=== PATIENT | female | born 1960 | race Caucasian/White ===

== ENCOUNTER 2020-03-06 12:59 | Inpatient (IN) ==
--- NOTE | 2020-03-06 13:27 | Emergency Department Note ---
Lower Extremity Injury HPI General Chief Complaint: Extremity Injury, Lower Stated Complaint: fell out of chair Time Seen by Provider: 03/06/20 13:18 Source: patient and RN notes reviewed Mode of arrival: wheelchair Limitations: no limitations History of Present Illness HPI Narrative: Narrative: This patient slipped and fell out of her wheelchair the day after [place] and injured her right hip. She had x-ray today that shows a subcapital right hip fracture. She normally uses a wheelchair quite a bit because she is a double BKA amputee. 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 That is why she had to have the amputations. She does have diabetes. She says she normally does try to walk some and stand some but has not since the accident. No injury to any other body parts. complaint: hip injury Onset (ago): day(s) Type of Injury: blunt Place: home Severity: moderate Improves with: immobilization Worsens with: weight bearing Context: fall Related Data Home Medications Medication Instructions Recorded Confirmed dulaglutide 3 mg/0.5 mL 3 mg SUB-Q QWEEK 03/06/20 03/06/20 subcutaneous pen injector glipizide See Rx Instructions .ROUTE .COMPLEX 03/06/20 03/06/20 metformin 500 mg tablet 500 mg PO QDAY 03/06/20 03/06/20 Allergies Allergy/AdvReac Type Severity Reaction Status Date / Time codeine [CODEINE] Allergy Severe SHORTNESS Verified 03/06/20 11:46 OF BREATH Review of Systems ROS ROS Narrative: Narrative: All systems ED: reviewed and negative except as stated. [facility] Narrative Patient History Narrative: Narrative: Medical/Surgical/Family History All Active Problems (Updated 03/06/20 @ 16:06 by Eladio Deleon MD) Hip fracture, right (Acute) Contusion (Acute) Hip pain (Acute) Fall (Acute) Medical History (Updated 03/06/20 @ 16:06 by Eladio Deleon MD) Contusion (Acute) Fall (Acute) Hip fracture, right (Acute) Hip pain (Acute) Social History Smoking Status: Former smoker Alcohol Intake Frequency: does not drink Substance Use: does not use Exam Narrative Narrative: Narrative: General Limitations: no limitations Head Head: Present atraumatic, normocephalic and normal inspection Eye Eye: Present normal appearance and EOMI; Absent scleral icterus and conjunctival injection ENT ENT: Present normal exam, normal oropharynx and mucous membranes moist Neck Neck: Present normal inspection and full ROM Chest Chest: Present normal inspection Respiratory Respiratory: Present normal lung sounds bilaterally Cardiovascular Cardiovascular: Present regular rate, normal rhythm and normal heart sounds Adbominal Abdominal: Present soft; Absent distention and tenderness Extremities Extremities: Present normal inspection and other (Tenderness to the right hip region) Neurological Neurological: Present alert Psychiatric Psychiatric: Present normal affect Skin Skin: Present warm (WNL) and dry; Absent diaphoresis Course Vital Signs Vital signs: Vital Signs Temperature 97.5 F 03/06/20 13:02 Pulse Rate 87 03/06/20 13:02 Respiratory Rate 16 03/06/20 13:02 Blood Pressure 109/71 03/06/20 13:02 Pulse Oximetry (%) 99 03/06/20 13:02 Temperature 97.5 F 03/06/20 13:02 Pulse Rate 87 03/06/20 13:02 Respiratory Rate 16 03/06/20 13:02 Blood Pressure 109/71 03/06/20 13:02 Pulse Oximetry (%) 99 03/06/20 13:02 [facility] MDM Narrative Medical decision making narrative: Narrative: I discussed the case with the orthopedist Dr. Sena and the hospitalist Dr. Bass who will admit the patient to the hospital. Lab Data Lab results reviewed: Yes I reviewed the patient's lab results. Lab results narrative: Lab work was unremarkable. Result diagrams: 03/06/20 13:37 03/06/20 13:37 Labs: Lab Results 03/06/20 03/06/20 03/06/20 Range/Units 13:13 13:37 13:37 WBC 7.6 (4.5-11.0) K/mcL RBC 4.33 (4.00-5.20) M/mcL Hgb 13.6 (12.0-15.0) g/dL Hct 41.2 (36.0-48.0) % MCV 95.2 (80.0-100.0) fL MCH 31.4 (26.0-34.0) pg MCHC 33.0 (31.0-36.0) g/dL RDW 12.1 (11.5-14.5) % Plt Count 398 (140-440) K/mcL MPV 9.8 (7.4-10.4) fL Neut % (Auto) 58.2 (38.0-78.0) % Lymph % (Auto) 35.2 (15.0-49.0) % [place] % (Auto) 5.3 (1.0-12.0) % Eos % (Auto) 0.9 (0.0-7.0) % Baso % (Auto) 0.4 (0.0-2.0) % Lymph # (Auto) 2.68 (1.50-4.80) K/mcL [place] # (Auto) 0.40 (0.10-0.90) K/mcL Eos # (Auto) 0.07 (0.00-0.70) K/mcL Baso # (Auto) 0.03 (0.00-0.20) K/mcL Absolute Neutrophils 4.43 (1.80-8.00) K/mcL PT 12.2 (11.9-14.5) sec INR 0.9 (0.9-1.1) Sodium (133-145) mmol/L Potassium (3.3-5.1) mmol/L Chloride (96-108) mmol/L Carbon Dioxide (22-30) mmol/L Anion Gap (8.0-16.0) BUN (6-20) mg/dL Creatinine (0.6-1.1) mg/dL GFR Calculation Glucose (70-105) mg/dL Calcium (8.6-10.4) mg/dL Total Bilirubin (0.1-1.0) mg/dL AST (<32) U/L ALT (<40) U/L Alkaline Phosphatase (39-117) U/L Total Protein (5.9-8.4) gm/dL Albumin (3.2-5.2) gm/dL Globulin (2.2-3.7) gm/dL Albumin/Globulin Ratio (1.0-2.3) Urine Color Yellow Urine Appearance Hazy A (Clear) Urine pH 5.0 (5.0-9.0) Ur Specific [place] 1.032 (1.000-1.035) Urine Protein Negative (Negative) mg/dL Urine Glucose (UA) >=500 A (Negative) mg/dL Urine Ketones Negative (Negative) mg/dL Urine Occult Blood Negative (Negative) mg/dL Urine Nitrate Negative (Negative) Urine Bilirubin Negative (Negative) mg/dL Urine Urobilinogen Negative mg/dL Ur Leukocyte Esterase 500 A (Negative) /ug Urine RBC 0 (0-3) /hpf Urine WBC 5 H (0-4) /hpf Ur Squamous Epith Cells < 1 (0-4) /hpf Ur Transition Epith Cell < 1 (0-2) /hpf Urine Bacteria Few A (0) /hpf Urine Mucus Mod A (None) /hpf Urine Yeast (Budding) Many A (None) /hpf Ur Culture Indicated? Yes 03/06/20 Range/Units 13:37 WBC (4.5-11.0) K/mcL RBC (4.00-5.20) M/mcL Hgb (12.0-15.0) g/dL Hct (36.0-48.0) % MCV (80.0-100.0) fL MCH (26.0-34.0) pg MCHC (31.0-36.0) g/dL RDW (11.5-14.5) % Plt Count (140-440) K/mcL MPV (7.4-10.4) fL Neut % (Auto) (38.0-78.0) % Lymph % (Auto) (15.0-49.0) % [place] % (Auto) (1.0-12.0) % Eos % (Auto) (0.0-7.0) % Baso % (Auto) (0.0-2.0) % Lymph # (Auto) (1.50-4.80) K/mcL [place] # (Auto) (0.10-0.90) K/mcL Eos # (Auto) (0.00-0.70) K/mcL Baso # (Auto) (0.00-0.20) K/mcL Absolute Neutrophils (1.80-8.00) K/mcL PT (11.9-14.5) sec INR (0.9-1.1) Sodium 137 (133-145) mmol/L Potassium 3.8 (3.3-5.1) mmol/L Chloride 96 (96-108) mmol/L Carbon Dioxide 24 (22-30) mmol/L Anion Gap 17.0 H (8.0-16.0) BUN 11 (6-20) mg/dL Creatinine 0.8 (0.6-1.1) mg/dL GFR Calculation 80 Glucose 128 H (70-105) mg/dL Calcium 9.8 (8.6-10.4) mg/dL Total Bilirubin 0.3 (0.1-1.0) mg/dL AST 21 (<32) U/L ALT 16 (<40) U/L Alkaline Phosphatase 49 (39-117) U/L Total Protein 7.7 (5.9-8.4) gm/dL Albumin 4.7 (3.2-5.2) gm/dL Globulin 3.0 (2.2-3.7) gm/dL Albumin/Globulin Ratio 1.6 (1.0-2.3) Urine Color Urine Appearance (Clear) Urine pH (5.0-9.0) Ur Specific [place] (1.000-1.035) Urine Protein (Negative) mg/dL Urine Glucose (UA) (Negative) mg/dL Urine Ketones (Negative) mg/dL Urine Occult Blood (Negative) mg/dL Urine Nitrate (Negative) Urine Bilirubin (Negative) mg/dL Urine Urobilinogen mg/dL Ur Leukocyte Esterase (Negative) /ug Urine RBC (0-3) /hpf Urine WBC (0-4) /hpf Ur Squamous Epith Cells (0-4) /hpf Ur Transition Epith Cell (0-2) /hpf Urine Bacteria (0) /hpf Urine Mucus (None) /hpf Urine Yeast (Budding) (None) /hpf Ur Culture Indicated? Radiology Data Radiology results reviewed: Yes I reviewed the patient's radiology results. Radiology results narrative: This patient does have a subcapital fracture of the right hip. Discharge Plan Patient/Caregiver Discharge Instructions Pt seen by FARM FACILITY MANAGER/PA only: No Clinical Impression: Hip fracture, right Patient Disposition: Xfer As Inpt ([facility]) Follow up with: Chago Sandoval [Primary Care Provider] - Prescriptions: No Action metformin 500 mg tablet 500 mg PO QDAY RF: 0 Trulicity 3 mg/0.5 mL pen injector 3 mg SUB-Q QWEEK RF: 0 glipizide 5 mg Tablet See Rx Instructions .ROUTE .COMPLEX RF: 0
--- NOTE | 2020-03-06 14:09 | XRay Report ---
HISTORY: Preop, fell out of a chair with hip fracture FINDINGS: The lungs are clear and normally expanded. The heart size and pulmonary vasculature are normal. The mediastinum and hilar normal. Mild arthritis is present in the right shoulder. IMPRESSION: Normal chest. Interpreted and Authenticated by: Lamin Frye 03/06/20
[2020-03-06 14:25] LABS: Basophils # (Auto) 0.03 K/mcL (0.00-0.20); Basophils % (Auto) 0.4 % (0.0-2.0); Eosinophils # (Auto) 0.07 K/mcL (0.00-0.70); Eosinophils % (Auto) 0.9 % (0.0-7.0); Hematocrit 41.2 % (36.0-48.0); Hemoglobin 13.6 g/dL (12.0-15.0); Lymphocytes # (Auto) 2.68 K/mcL (1.50-4.80); Lymphocytes % (Auto) 35.2 % (15.0-49.0); Mean Cell Volume 95.2 fL (80.0-100.0); Mean Platelet Volume 9.8 fL (7.4-10.4); Monocytes % (Auto) 5.3 % (1.0-12.0); Neutrophils % (Auto) 58.2 % (38.0-78.0); Platelet Count 398 K/mcL (140-440); RBC 4.33 M/mcL (4.00-5.20); Red Cell Distribution Width 12.1 % (11.5-14.5); WBC 7.6 K/mcL (4.5-11.0)
[2020-03-06 14:38] LABS: Appearance,Urine HAZY (Clear); Bacteria,Urine FEW /hpf (0); Bilirubin,Urine Negative (Negative); Color,Urine YELLOW; Culture Indicated,Urine Yes; Glucose,Urine (UA) >=500 mg/dL (Negative); Ketones,Urine Negative (Negative); Leukocyte Esterase,Urine 500 /ug (Negative); Mucus,Urine MOD /hpf; Nitrate,Urine Negative (Negative); Protein,Urine Negative (Negative); Specific Gravity,Urine 1.032 (1.000-1.035); Urine Blood Negative (Negative); Urine Budding Yeast MANY /hpf; Urine RBC 0 /hpf (0-3); Urine Squamous Epithelial Cell < 1 /hpf (0-4); Urine Transitional Epi Cells < 1 /hpf (0-2); Urine WBC 5 /hpf (0-4); Urobilinogen,Urine Negative
[2020-03-06 14:49] LABS: ALT/SGPT 16 U/L (<40); AST/SGOT 21 U/L (<32); Albumin 4.7 gm/dL (3.2-5.2); Albumin/Globulin Ratio 1.6 (1.0-2.3); Alkaline Phosphatase 49 U/L (39-117); Bilirubin,Total 0.3 mg/dL (0.1-1.0); Blood Urea Nitrogen 11 mg/dL (6-20); Calcium 9.8 mg/dL (8.6-10.4); Carbon Dioxide 24 mmol/L (22-30); Chloride 96 mmol/L (96-108); Glomerular Filtration Rate 80; Glucose 128 mg/dL (70-105)
[2020-03-06 15:05] LABS: INR 0.9 (0.9-1.1); Prothrombin Time 12.2 sec (11.9-14.5)
[2020-03-06] MEDS ORDERED: DEXTROSE 50% 50 ML VIAL IV ONE (16:37)
--- NOTE | 2020-03-06 16:41 | Internal Med History&Physical ---
HPI History of Present Illness Patient information: Note initiated : 03/06/20 at 4:32 pm Service Date, if different from initiated Date: [] Patient: Lupe Sanchez a 59 y/o F admitted on for fell out of chair. Chief Complaint: History of present illness: Ms. Sanchez is a 59 year old F to bilateral BKA/diabetes who is otherwise fairly independent and lives alone. Patient was in her baseline state of health until on the while she was trying to bend to lift her box fell on the floor landing on her right side. She was able to get up and settle herself from the chair. She experienced minimal discomfort and continued to work with the symptoms for the next few days until she presents to the ER for evaluation. Initial work-up was consistent with right hip fracture. Dr. Sena orthopedic was consulted and advised hospitalization for operative intervention. Subsequently hospitalist service was consulted At the time of my evaluation patient is alert and oriented. She denies active distress. She denies loss of consciousness during the episode or lightheadedness dizziness chest pain. She attributes to fall purely mechanical in nature getting off balance. She uses prosthetic limbs and has been very independent. Denies history of stroke except age 25 due to pheochromocytoma when she had ischemic limbs requiring bilateral amputation and a CVA. Ever since she has not had any hospitalizations or cardiac stents. She does not smoke or drink and does not carry significant risk factors She denies diarrhea, dysuria, fever, joint pain, rash, headache, photophobia Review of systems A 10 point review system was performed and is negative except for ones discussed above PFSH PFSH All Active Problems (Updated 03/06/20 @ 16:06 by Eladio Deleon MD) Hip fracture, right (Acute) Contusion (Acute) Hip pain (Acute) Fall (Acute) Medical History (Updated 03/06/20 @ 16:06 by Eladio Deleon MD) Contusion (Acute) Fall (Acute) Hip fracture, right (Acute) Hip pain (Acute) Social History smoking status: Former smoker alcohol intake frequency: does not drink substance use type: does not use MEDS/ALLERGIES Home Medications and Allergies Home Medications Medication Instructions Recorded Confirmed Type dulaglutide 3 mg/0.5 mL 3 mg SUB-Q QWEEK 03/06/20 03/06/20 History subcutaneous pen injector glipizide See Rx Instructions .ROUTE .COMPLEX 03/06/20 03/06/20 History metformin 500 mg tablet 500 mg PO QDAY 03/06/20 03/06/20 History Allergies Allergy/AdvReac Type Severity Reaction Status Date / Time codeine [CODEINE] Allergy Severe SHORTNESS Verified 03/06/20 11:46 OF BREATH EXAM Constitutional Vitals: Temp Pulse Resp BP Pulse Ox 97.5 F 87 16 109/71 99 03/06/20 13:02 03/06/20 13:02 03/06/20 13:02 03/06/20 13:02 03/06/20 13:02 Alert oriented Head normocephalic Oral cavity moist No ear nose discharge Eye movement symmetrical Neck supple no lymphadenopathy S1-S2 occasionally irregular Nonlabored breathing Nondistended nontender abdomen Bilateral BKA. Right lower extremity externally rotated. Skin no suspicious lesion Psych anxious but alert cooperative Neuro normal higher function GCS 15 DATA Data Completed and Pending Labs: Labs from last 24 hours 03/06/20 03/06/20 03/06/20 13:37 13:37 13:37 WBC 7.6 RBC 4.33 Hgb 13.6 Hct 41.2 MCV 95.2 MCH 31.4 MCHC 33.0 RDW 12.1 Plt Count 398 MPV 9.8 Neut % (Auto) 58.2 Lymph % (Auto) 35.2 [place] % (Auto) 5.3 Eos % (Auto) 0.9 Baso % (Auto) 0.4 Lymph # (Auto) 2.68 [place] # (Auto) 0.40 Eos # (Auto) 0.07 Baso # (Auto) 0.03 Absolute Neutrophils 4.43 PT 12.2 INR 0.9 Sodium 137 Potassium 3.8 Chloride 96 Carbon Dioxide 24 Anion Gap 17.0 H BUN 11 Creatinine 0.8 GFR Calculation 80 Glucose 128 H Calcium 9.8 Total Bilirubin 0.3 AST 21 ALT 16 Alkaline Phosphatase 49 Total Protein 7.7 Albumin 4.7 Globulin 3.0 Albumin/Globulin Ratio 1.6 Urine Color Urine Appearance Urine pH Ur Specific [place] Urine Protein Urine Glucose (UA) Urine Ketones Urine Occult Blood Urine Nitrate Urine Bilirubin Urine Urobilinogen Ur Leukocyte Esterase Urine RBC Urine WBC Ur Squamous Epith Cells Ur Transition Epith Cell Urine Bacteria Urine Mucus Urine Yeast (Budding) Ur Culture Indicated? 03/06/20 13:13 WBC RBC Hgb Hct MCV MCH MCHC RDW Plt Count MPV Neut % (Auto) Lymph % (Auto) [place] % (Auto) Eos % (Auto) Baso % (Auto) Lymph # (Auto) [place] # (Auto) Eos # (Auto) Baso # (Auto) Absolute Neutrophils PT INR Sodium Potassium Chloride Carbon Dioxide Anion Gap BUN Creatinine GFR Calculation Glucose Calcium Total Bilirubin AST ALT Alkaline Phosphatase Total Protein Albumin Globulin Albumin/Globulin Ratio Urine Color Yellow Urine Appearance Hazy A Urine pH 5.0 Ur Specific [place] 1.032 Urine Protein Negative Urine Glucose (UA) >=500 A Urine Ketones Negative Urine Occult Blood Negative Urine Nitrate Negative Urine Bilirubin Negative Urine Urobilinogen Negative Ur Leukocyte Esterase 500 A Urine RBC 0 Urine WBC 5 H Ur Squamous Epith Cells < 1 Ur Transition Epith Cell < 1 Urine Bacteria Few A Urine Mucus Mod A Urine Yeast (Budding) Many A Ur Culture Indicated? Yes A/P Narrative A/P Narrative: * Right hip fracture-orthopedic consulted. Keep n.p.o. Will undergo surgery tonight. Pain management * Preop risk evaluation-based on RCRI [place] [employer] risk verification patient would fall under moderate to high risk given history of diabetes and prior CVA however patient does not have a history of decompensated heart failure/CAD/renal failure. Patient has good functional baseline, she would be a great rehab candidate. No modifiable risk factors at this time however surgery and anesthesia specific risk will be discussed by individual care providers * History of DM type II continue Metformin/CCD. An updated medication list is being obtained from PCP office * Hyperlipidemia continue statin * Hypothyroidism continue thyroxine * History of hypertension on lisinopril * Full code * Prophylaxis heparin post surgery Plan * Inpatient admission * Keep n.p.o./pain management/crystalloids * Postop care per surgery * Pre-existing medical condition management as above * Directed therapies * Discharge plan Time Spent With Patient Time: Total time spent is greater than 50% in coordination of care (as documented) at patient's floor/unit and/or counseling patient:
[2020-03-06] MEDS ORDERED: POTASSIUM CHLORIDE 40 MEQ in DEXTROSE 5% IN WATER 500 ML IV PRN (17:39)
[2020-03-06] MEDS ORDERED: ACETAMINOPHEN 650 MG/65 ML BAG IV PRN (17:39)
[2020-03-06] MEDS ORDERED: ONDANSETRON 4 MG/2 ML VIAL IV PRN (17:39)
[2020-03-06] MEDS ORDERED: POTASSIUM CHLORIDE 20 MEQ PACKET PO PRN (17:39)
[2020-03-06] MEDS ORDERED: MELATONIN 3 MG TABLET PO PRN (17:39)
[2020-03-06] MEDS ORDERED: ACETAMINOPHEN 325 MG TABLET PO PRN (17:39)
[2020-03-06] MEDS ORDERED: ONDANSETRON 4 MG ODT TABLET SL PRN (17:39)
[2020-03-06] MEDS ORDERED: MAGNESIUM SULFATE 2 GM/50 ML BAG IV PRN (17:39)
[2020-03-06] MEDS ORDERED: POLYETHYLENE GLYCOL 3350 17 GM PACKET PO PRN (17:39)
[2020-03-06] MEDS ORDERED: DEXTROSE 31 GM ORAL.SUSP PO PRN (17:39)
[2020-03-06] MEDS ORDERED: DEXTROSE 50% 50 ML VIAL IV PRN (17:39)
[2020-03-06] MEDS ORDERED: BISACODYL 10 MG SUPP.RECT PR PRN (17:39)
[2020-03-06] MEDS: 0.9 % SODIUM CHLORIDE 1,000 ML IV SCH (19:00)
[2020-03-06] MEDS: INSULIN LISPRO 1 UNIT/0.01 ML UNIT SQ SCH ×2 (19:04→21:50)
[2020-03-06] MEDS: DEXTROSE 5%-1/2NS 1,000 ML IV SCH (20:00)
[2020-03-06] MEDS ORDERED: ORTHO PREOP PAIN ORDER PER RX PO SCH (21:00)
[2020-03-06] MEDS ORDERED: ceFAZolin 2 GM in DEXTROSE 5% IN WATER 50 ML IV SCH (21:00)
[2020-03-06] MEDS ORDERED: SENNOSIDES/DOCUSATE SODIUM 1 TAB TABLET PO SCH (21:00)
[2020-03-06] MEDS: 0.9 % SODIUM CHLORIDE 10 ML SYRINGE IV SCH (21:50)
[2020-03-06] MEDS: DOCUSATE SODIUM 100 MG CAPSULE PO SCH (22:17)
[2020-03-07] MEDS: HYDROmorphone 0.5 MG/0.5 ML SYRINGE IV PRN ×2 (00:15→04:37)
[2020-03-07] MEDS ORDERED: SCOPOLAMINE 1 PATCH PATCH TOPICAL PRN (03:56)
[2020-03-07] MEDS ORDERED: IPRATROPIUM/ALBUTEROL 3 ML AMPUL.NEB NEB PRN ×2 (03:56→13:19)
[2020-03-07] MEDS: 0.9 % SODIUM CHLORIDE 10 ML SYRINGE IV SCH ×3 (04:45→20:45)
[2020-03-07] MEDS ORDERED: CELECOXIB 200 MG CAPSULE PO SCH (06:00)
[2020-03-07] MEDS ORDERED: ceFAZolin 2 GM in DEXTROSE 5% IN WATER 50 ML IV SCH (06:00)
[2020-03-07] MEDS ORDERED: PREGABALIN 75 MG CAPSULE PO SCH (06:00)
[2020-03-07] MEDS ORDERED: ACETAMINOPHEN 500 MG TABLET PO SCH (06:00)
[2020-03-07] MEDS ORDERED: oxyCODONE 10 MG TAB.ER.12H PO SCH (06:00)
[2020-03-07 06:56] LABS: Basophils # (Auto) 0.03 K/mcL (0.00-0.20); Basophils % (Auto) 0.4 % (0.0-2.0); Eosinophils # (Auto) 0.14 K/mcL (0.00-0.70); Eosinophils % (Auto) 1.7 % (0.0-7.0); Hematocrit 37.7 % (36.0-48.0); Hemoglobin 12.3 g/dL (12.0-15.0); Lymphocytes # (Auto) 3.13 K/mcL (1.50-4.80); Lymphocytes % (Auto) 38.1 % (15.0-49.0); Mean Corpuscular HGB Conc 32.6 g/dL (31.0-36.0); Mean Platelet Volume 9.9 fL (7.4-10.4); Monocytes # (Auto) 0.54 K/mcL (0.10-0.90); Monocytes % (Auto) 6.6 % (1.0-12.0); Neutrophils % (Auto) 53.2 % (38.0-78.0); Platelet Count 366 K/mcL (140-440); RBC 3.97 M/mcL (4.00-5.20); Red Cell Distribution Width 12.1 % (11.5-14.5); WBC 8.2 K/mcL (4.5-11.0)
[2020-03-07 07:41] LABS: ALT/SGPT 11 U/L (<40); AST/SGOT 16 U/L (<32); Albumin 3.7 gm/dL (3.2-5.2); Albumin/Globulin Ratio 1.3 (1.0-2.3); Alkaline Phosphatase 42 U/L (39-117); Bilirubin,Direct < 0.2 mg/dL (<0.3); Bilirubin,Total 0.2 mg/dL (0.1-1.0); Blood Urea Nitrogen 10 mg/dL (6-20); Carbon Dioxide 21 mmol/L (22-30); Chloride 102 mmol/L (96-108); Globulin 2.8 gm/dL (2.2-3.7); Glomerular Filtration Rate 80; Glucose 161 mg/dL (70-105); Lactate Dehydrogenase 211 U/L (135-225); Phosphorous 4.7 mg/dL (2.5-4.5); Triglycerides 215 mg/dL (<150); Uric Acid 5.4 mg/dL (2.5-8.0)
[2020-03-07] MEDS: INSULIN LISPRO 1 UNIT/0.01 ML UNIT SQ SCH ×4 (07:45→20:45)
[2020-03-07] MEDS ORDERED: diphenhydrAMINE 50 MG/ML VIAL IV PRN ×2 (07:54→13:19)
[2020-03-07 08:05] LABS: Hemoglobin A1C 8.3 % Hgb (4.0-6.0)
--- NOTE | 2020-03-07 10:09 | Internal Med Progress Note ---
SUBJECTIVE Subjective Patient information: Note initiated : 03/07/20 at 10:05 am Service Date, if different from initiated Date: [] Patient: Lupe Sanchez a 59 y/o F admitted on 03/06/20 for fell out of chair. Chief Complaint: [] Interval history: Ms. Sanchez is a 59 year old F to bilateral BKA/diabetes who is otherwise fairly independent and lives alone. Patient was in her baseline state of health until on the while she was trying to bend to lift her box fell on the floor landing on her right side. She was able to get up and settle herself from the chair. She experienced minimal discomfort and continued to work with the symptoms for the next few days until she presents to the ER for evaluation. Initial work-up was consistent with right hip fracture. Dr. Sena orthopedic was consulted and advised hospitalization for operative intervention. Subsequently hospitalist service was consulted At the time of my evaluation patient is alert and oriented. She denies active distress. She denies loss of consciousness during the episode or lightheadedness dizziness chest pain. She attributes to fall purely mechanical in nature getting off balance. She uses prosthetic limbs and has been very independent. Denies history of stroke except age 25 due to pheochromocytoma when she had ischemic limbs requiring bilateral amputation and a CVA. Ever since she has not had any hospitalizations or cardiac stents. She does not smoke or drink and does not carry significant risk factors /-patient doing well overnight on pain control. Surgery this morning. Currently n.p.o. Stable hemodynamics. Will review postop. No concerns expressed by nursing staff Constitutional Vitals: Vital Signs Temp Pulse Resp BP Pulse Ox 97.9 F 78 16 106/70 96 03/07/20 07:40 03/07/20 07:40 03/07/20 07:40 03/07/20 07:40 03/07/20 07:40 Period Temp Pulse Resp BP Sys/Huertas Pulse Ox Last 24 Hr 97.5 F-98.7 F 78-101 14-20 86-112/50-71 95-100 Intake and Output 03/06/20 03/07/20 03/07/20 21:59 05:59 13:59 Output Total 100 600 Balance -100 -600 Weight 58.559 kg Alert oriented Bilateral BKA Right limb exsanguinated Minimal anxiety Nonlabored breathing Intake & Output: Intake & Output 03/06/20 03/07/20 03/07/20 21:59 05:59 13:59 Output Total 100 600 Balance -100 -600 Weight 58.559 kg Output: Void Amount 100 600 Other: Urine Appearance Cloudy Clear Urine Color Bright Yellow Bright Yellow Urine Odor Strong Normal # Voids 1 OBJ DATA Labs CBC & Chem 7: 03/07/20 04:53 03/07/20 04:53 Labs: Abnormal Lab Results 03/07/20 03/07/20 03/07/20 04:53 04:53 04:53 RBC 3.97 L Carbon Dioxide 21 L Anion Gap Glucose 161 H Hemoglobin A1c 8.3 H Phosphorus 4.7 H Triglycerides 215 H Urine Appearance Urine Glucose (UA) Ur Leukocyte Esterase Urine WBC Urine Bacteria Urine Mucus Urine Yeast (Budding) 03/06/20 03/06/20 13:37 13:13 RBC Carbon Dioxide Anion Gap 17.0 H Glucose 128 H Hemoglobin A1c Phosphorus Triglycerides Urine Appearance Hazy A Urine Glucose (UA) >=500 A Ur Leukocyte Esterase 500 A Urine WBC 5 H Urine Bacteria Few A Urine Mucus Mod A Urine Yeast (Budding) Many A Meds: Medications Acetaminophen (Tylenol) 650 mg PO Q4-6HP PRN; Protocol PRN Reason: Per Pain Protocol/Fever > 101 Acetaminophen (Tylenol) 1,000 mg PO PREOP [facility] Stop: 03/07/20 15:00 Last Admin: 03/07/20 06:45 Dose: 1,000 mg Documented by: Bisacodyl (Dulcolax) 10 mg [place] Q2-3DAYS PRN PRN Reason: Constipation Celecoxib (Celebrex) 200 mg PO PREOP [facility] Stop: 03/07/20 15:00 Last Admin: 03/07/20 06:47 Dose: 200 mg Documented by: Dextrose (Dextrose 50%) 0 ml IV UD PRN PRN Reason: Hypoglycemia Diagnostic Test (Pha) (Accu-Chek) 1 each FS ACHS [facility] Last Admin: 03/07/20 07:43 Dose: 1 each Documented by: Diagnostic Test (Pha) (Accu-Chek) 1 each FS UD PRN PRN Reason: Hypoglycemia Stop: 03/07/20 11:56 Diphenhydramine HCl (Benadryl) 25 mg IV Q6HP PRN PRN Reason: Allergic Symptoms Last Admin: 03/07/20 08:03 Dose: 25 mg Documented by: Docusate Sodium (Colace) 100 mg PO BID [facility] Last Admin: 03/06/20 22:17 Dose: 100 mg Documented by: Glucose (Insta-Glucose) 15 gm PO PRN PRN PRN Reason: Hypoglycemia Heparin Sodium (Porcine) (Heparin) 5,000 unit SQ Q12 [facility] Hydromorphone HCl (Dilaudid) 0.25 - 0.5 mg IV Q4HP PRN; Protocol PRN Reason: Per Pain Protocol Last Admin: 03/07/20 04:37 Dose: 0.25 mg Documented by: Potassium Chloride 40 meq/ (Dextrose) 520 mls @ 130 mls/hr IV UD PRN PRN Reason: K+ = or < 3.5 Acetaminophen (Ofirmev) 650 mg in 65 mls @ 130 mls/hr IV Q6HP PRN; Protocol PRN Reason: Per Pain Protocol/Fever > 101 Magnesium Sulfate (Magnesium Sulfate) 2 gm in 50 mls @ 50 mls/hr IV UD PRN PRN Reason: MG = or < 1.7 Sodium Chloride (Sodium Chloride 0.9%) 1,000 mls @ 50 mls/hr IV .Q20H [facility] Stop: 03/09/20 05:38 Last Admin: 03/06/20 19:00 Dose: 50 mls/hr Documented by: Dextrose/Sodium Chloride (Dextrose 5%-1/2ns Iv Solution) 1,000 mls @ 50 mls/hr IV .Q20H [facility] Last Admin: 03/06/20 20:00 Dose: 50 mls/hr Documented by: Cefazolin Sodium 2 gm/ (Dextrose) 50 mls @ 100 mls/hr IV PREOP [facility] Stop: 03/07/20 15:00 Insulin Human Lispro (Humalog) 0 unit SQ ACHS [facility]; Protocol Last Admin: 03/07/20 07:45 Dose: Not Given Documented by: Iron Carb/Multivit/Burt/Folic Acid (Multivitamin W/Minerals) 1 tab PO DAILY [facility] Melatonin (Melatonin 3mg Tablet) 3 mg PO HSP PRN PRN Reason: Insomnia Ondansetron HCl (Zofran Odt) 4 mg SL Q4-6HP PRN; Protocol PRN Reason: Nausea And Vomiting Ondansetron HCl (Zofran) 4 mg IV Q4-6HP PRN; Protocol PRN Reason: Nausea And Vomiting Oxycodone HCl (Oxycontin) 10 mg PO PREOP [facility] Stop: 03/07/20 15:00 Last Admin: 03/07/20 06:48 Dose: 10 mg Documented by: Polyethylene Glycol (Miralax) 17 gm PO DAILYP PRN PRN Reason: Constipation Potassium Chloride (Klor-Con) 40 meq PO DAILYP PRN PRN Reason: K+ < 3.5 Pregabalin (Lyrica) 75 mg PO PREOP [facility] Stop: 03/07/20 15:00 Last Admin: 03/07/20 06:48 Dose: 75 mg Documented by: Scopolamine (Transderm-Scop) 1 patch TOPICAL PREOP PRN PRN Reason: Nausea And Vomiting Senna/Docusate Sodium (Senna Plus Tablet) 1 tab PO HS [facility] Last Admin: 03/06/20 22:17 Dose: 1 tab Documented by: Sitagliptin Phosphate (Januvia) 100 mg PO DAILY [facility] Sodium Chloride (Saline Flush) 10 ml IV Q8 [facility] Last Admin: 03/07/20 04:45 Dose: Not Given Documented by: A/P Narrative A/P Narrative: * Right hip fracture-surgery today. Keep n.p.o. managed per orthopedics * Preop risk evaluation-based on RCRI [place] [employer] risk verification patient would fall under moderate to high risk intraoperative and immediate postoperative risk for ACS/CVA given history of diabetes and prior CVA however patient does not have a history of decompensated heart failure/CAD/renal failure. Patient has good functional baseline, she would be a great rehab candidate. No modifiable risk factors at this time however surgery and anesthesia specific risk will be discussed by individual care providers * History of DM type II continue Metformin/CCD once patient started on diet post surgery. * Hyperlipidemia continue statin * Hypothyroidism continue thyroxine * History of hypertension on lisinopril * Full code * Prophylaxis heparin post surgery Plan * Review postop * Continue postop care/pain management/DVT prophylaxis per orthopedics * Pre-existing medical condition management as above * Directed therapies including PT OT/nutrition support * Discharge plan per case management Time Spent With Patient Time: Total time spent is greater than 50% in coordination of care (as documented) at patient's floor/unit and/or counseling patient: QUALITY VTE Deep Vein Thrombosis/Pulmonary Embolism Present on Admission: No
[2020-03-07] MEDS ORDERED: LIDOCAINE HCL/PF 100 MG/5 ML SYRINGE IV ONE (12:42)
[2020-03-07] MEDS ORDERED: ePHEDrine 50 MG/ML AMPUL IV ONE (12:42)
[2020-03-07] MEDS ORDERED: DEXAMETHASONE 10 MG/ML VIAL ONE (12:42)
[2020-03-07] MEDS ORDERED: PROPOFOL 200 MG/20 ML VIAL IV ONE (12:42)
[2020-03-07] MEDS ORDERED: ONDANSETRON 4 MG/2 ML VIAL ONE (12:42)
[2020-03-07] MEDS ORDERED: fentaNYL 100 MCG/2 ML VIAL IV ONE (12:42)
[2020-03-07] MEDS ORDERED: KETAMINE 100 MG/ML ML ONE (12:42)
[2020-03-07] MEDS ORDERED: PHENYLEPHRINE 10 MG/ML VIAL ONE (12:42)
[2020-03-07] MEDS ORDERED: GENTAMICIN SULFATE 800 MG/20 ML VIAL IR ONE (13:07)
[2020-03-07] MEDS ORDERED: ONDANSETRON 4 MG/2 ML VIAL IV PRN ×4 (13:19→13:43)
[2020-03-07] MEDS ORDERED: MEPERIDINE 25 MG/ML SYRINGE IV PRN (13:19)
[2020-03-07] MEDS ORDERED: NALOXONE HCL 0.4 MG/ML VIAL IV PRN (13:19)
[2020-03-07] MEDS ORDERED: BENZOCAINE/MENTHOL 1 LOZENGE PO PRN ×2 (13:19→13:43)
[2020-03-07] MEDS ORDERED: PROMETHAZINE 25 MG/ML VIAL IV PRN (13:19)
[2020-03-07] MEDS ORDERED: ACETAMINOPHEN 900 MG/90 ML BAG IV ONE (13:19)
[2020-03-07] MEDS ORDERED: LACTATED RINGERS 250 ML IV PRN (13:19)
[2020-03-07] MEDS ORDERED: LACTATED RINGERS 1,000 ML IV SCH ×2 (13:30→13:45)
[2020-03-07] MEDS ORDERED: MAGNESIUM HYDROXIDE 30 ML ORAL.SUSP PO PRN (13:43)
[2020-03-07] MEDS ORDERED: BISACODYL 10 MG SUPP.RECT PR PRN (13:43)
[2020-03-07] MEDS ORDERED: ACETAMINOPHEN 325 MG TABLET PO PRN (13:43)
[2020-03-07] MEDS ORDERED: POLYETHYLENE GLYCOL 3350 17 GM PACKET PO PRN (13:43)
[2020-03-07] MEDS ORDERED: HYDROcodone/APAP 10/325MG TABLET PO PRN (13:43)
[2020-03-07] MEDS ORDERED: TRANEXAMIC ACID 1,000 MG/10 ML VIAL IV SCH (13:43)
[2020-03-07] MEDS ORDERED: FLEETS ADULT ENEMA PR PRN (13:43)
--- NOTE | 2020-03-07 13:43 | Brief Operative Note ---
Brief Operative Note Date of procedure: 03/07/20 Pre-op diagnosis: Right hip fracture femoral neck Post-op diagnosis: same Procedure: Right hip cemented hemiarthroplasty Grafts/Implants: Yes Anesthesia: GETA Findings: femoral neck fx Complications: none Surgeon: Elgin Carty Nuclear Engineering Technician: Gibran Molina Estimated blood loss (cc): 20 Tourniquet Time (Minutes): 0 Specimens Removed/Pathology: none sent Condition: stable Disposition: PACU
[2020-03-07] MEDS: sitaGLIPtin 100 MG TABLET PO SCH (13:52)
[2020-03-07] MEDS: DOCUSATE SODIUM 100 MG CAPSULE PO SCH ×2 (13:52→20:45)
[2020-03-07] MEDS: MULTIVIT,THER IRON,CA,FA & MIN 1 TABLET PO SCH (13:53)
[2020-03-07] MEDS: fentaNYL 100 MCG/2 ML VIAL IV PRN ×2 (14:20→14:25)
[2020-03-07] MEDS: KETOROLAC 15 MG/ML VIAL IV PRN ×2 (14:21→23:36)
--- NOTE | 2020-03-07 14:55 | XRay Report ---
HISTORY: Postop right hip arthroplasty FINDINGS: There is a well-positioned right total hip prosthesis. There is no fracture or abnormal soft tissue calcification. There are multiple small cystic erosions in the left femoral head. The left hip joint is normal in width. Multiple phleboliths are seen in the pelvis. IMPRESSION: Well-positioned right hip prosthesis Interpreted and Authenticated by: Lamin Frye 03/07/20
[2020-03-07] MEDS: 0.9 % SODIUM CHLORIDE 1,000 ML IV SCH (15:11)
[2020-03-07] MEDS: DEXTROSE 5%-1/2NS 1,000 ML IV SCH (15:21)
[2020-03-07] MEDS: HYDROmorphone 1 MG/ML SYRINGE IV PRN ×2 (15:37→19:23)
[2020-03-07] MEDS: ceFAZolin 1 GM VIAL IV SCH (18:40)
[2020-03-07] MEDS ORDERED: oxyCODONE HCL 5 MG TABLET PO PRN (19:15)
[2020-03-07] MEDS: SENNOSIDES 1 TABLET PO SCH (20:44)
[2020-03-07] MEDS: ASPIRIN 81 MG TAB.CHEW PO SCH (20:45)
[2020-03-07] MEDS ORDERED: HEPARIN 5,000 UNIT/ML VIAL SQ SCH (21:00)
[2020-03-07] MEDS ORDERED: TEMAZEPAM 15 MG CAPSULE PO PRN (21:00)
[2020-03-07] MEDS: oxyCODONE HCL 5 MG TABLET PO PRN (23:34)
[2020-03-07] MEDS ORDERED: oxyCODONE HCL 5 MG TABLET PO ONE (23:38)
[2020-03-08] MEDS: ceFAZolin 1 GM VIAL IV SCH (02:36)
[2020-03-08] MEDS: 0.9 % SODIUM CHLORIDE 10 ML SYRINGE IV SCH ×3 (05:28→20:50)
[2020-03-08] MEDS ORDERED: oxyCODONE HCL 5 MG TABLET PO ONE (05:33)
[2020-03-08] MEDS: HYDROmorphone 1 MG/ML SYRINGE IV PRN (06:20)
[2020-03-08 07:10] LABS: ALT/SGPT 13 U/L (<40); AST/SGOT 19 U/L (<32); Albumin 3.7 gm/dL (3.2-5.2); Albumin/Globulin Ratio 1.4 (1.0-2.3); Alkaline Phosphatase 45 U/L (39-117); Bilirubin,Direct < 0.2 mg/dL (<0.3); Bilirubin,Total < 0.2 mg/dL (0.1-1.0); Blood Urea Nitrogen 14 mg/dL (6-20); Carbon Dioxide 24 mmol/L (22-30); Chloride 98 mmol/L (96-108); Globulin 2.6 gm/dL (2.2-3.7); Glomerular Filtration Rate 70; Glucose 240 mg/dL (70-105); Lactate Dehydrogenase 165 U/L (135-225); Phosphorous 3.8 mg/dL (2.5-4.5); Triglycerides 165 mg/dL (<150); Uric Acid 5.1 mg/dL (2.5-8.0)
[2020-03-08 08:07] LABS: Basophils # (Auto) 0.01 K/mcL (0.00-0.20); Basophils % (Auto) 0.1 % (0.0-2.0); Eosinophils # (Auto) 0 K/mcL (0.00-0.70); Eosinophils % (Auto) 0 % (0.0-7.0); Hematocrit 33.9 % (36.0-48.0); Hemoglobin 11.1 g/dL (12.0-15.0); Lymphocytes # (Auto) 1.69 K/mcL (1.50-4.80); Lymphocytes % (Auto) 17.7 % (15.0-49.0); Mean Cell Volume 95.5 fL (80.0-100.0); Mean Corpuscular HGB Conc 32.7 g/dL (31.0-36.0); Mean Platelet Volume 9.8 fL (7.4-10.4); Monocytes # (Auto) 0.62 K/mcL (0.10-0.90); Monocytes % (Auto) 6.5 % (1.0-12.0); Neutrophils % (Auto) 75.7 % (38.0-78.0); Platelet Count 347 K/mcL (140-440); RBC 3.55 M/mcL (4.00-5.20); Red Cell Distribution Width 11.9 % (11.5-14.5); WBC 9.6 K/mcL (4.5-11.0)
--- NOTE | 2020-03-08 08:10 | Internal Med Progress Note ---
SUBJECTIVE Subjective Patient information: Note initiated : 03/08/20 at 8:07 am Service Date, if different from initiated Date: [] Patient: Lupe Sanchez a 59 y/o F admitted on 03/06/20 for fell out of chair. Chief Complaint: [] Interval history: Ms. Sanchez is a 59 year old F to bilateral BKA/diabetes who is otherwise fairly independent and lives alone. Patient was in her baseline state of health until on the while she was trying to bend to lift her box fell on the floor landing on her right side. She was able to get up and settle herself from the chair. She experienced minimal discomfort and continued to work with the symptoms for the next few days until she presents to the ER for evaluation. Initial work-up was consistent with right hip fracture. Dr. Sena orthopedic was consulted and advised hospitalization for operative intervention. Subsequently hospitalist service was consulted At the time of my evaluation patient is alert and oriented. She denies active distress. She denies loss of consciousness during the episode or lightheadedness dizziness chest pain. She attributes to fall purely mechanical in nature getting off balance. She uses prosthetic limbs and has been very independent. Denies history of stroke except age 25 due to pheochromocytoma when she had ischemic limbs requiring bilateral amputation and a CVA. Ever since she has not had any hospitalizations or cardiac stents. She does not smoke or drink and does not carry significant risk factors 1/1-patient doing well overnight on pain control. Surgery this morning. Currently n.p.o. Stable hemodynamics. Will review postop. No concerns e xpressed by nursing staff 1/2-patient seen in room. No overnight events. D5 half NS discontinued. Tolerating diet. Patient expressed concerns about discharging home due to deconditioning/instability and that she lives alone. She questioned about possibility of short-term rehab. Case management to coordinate. Continue therapies. Anticipate discharge in 48 hours Constitutional Vitals: Vital Signs Temp Pulse Resp BP Pulse Ox 96.7 F L 86 16 98/60 97 03/08/20 04:00 03/08/20 04:00 03/08/20 04:00 03/08/20 04:00 03/08/20 04:00 Period Temp Pulse Resp BP Sys/Huertas Pulse Ox Last 24 Hr 96.7 F-98.1 F 86-122 7-18 98-147/54-77 96-100 Intake and Output 03/07/20 03/08/20 03/08/20 21:59 05:59 13:59 Intake Total 3330 Output Total 700 800 250 Balance 2630 -800 -250 Weight 58.598 kg Postop day 2 Surgery site dressing no wheezing Stable hemodynamics No anxiety Nonlabored breathing Intake & Output: Intake & Output 03/07/20 03/08/20 03/08/20 21:59 05:59 13:59 Intake Total 3330 Output Total 700 800 250 Balance 2630 -800 -250 Weight 58.598 kg Intake: IV 1130 Sodium Chloride 0.9% 1,000 ml @ 1000 50 mls/hr IV .Q20H [facility] Rx#: [id number] Lactated Ringers 1,000 ml @ 20 40 mls/hr IV .Q24H [facility] Rx#: [id number] Oral 600 IV - Manual Only 1600 Output: Urine Catheter Amount 700 Void Amount 800 250 Other: Urine Appearance Clear Clear Clear Urine Color Bright Yellow Bright Yellow Bright Yellow Urine Odor Normal Strong Normal # Voids 1 OBJ DATA Labs CBC & Chem 7: 03/08/20 05:28 03/08/20 05:28 Labs: Abnormal Lab Results 03/08/20 03/08/20 03/07/20 05:28 05:28 04:53 RBC 3.55 L Hgb 11.1 L Hct 33.9 L Carbon Dioxide Anion Gap Glucose 240 H Hemoglobin A1c 8.3 H Phosphorus Triglycerides 165 H Urine Appearance Urine Glucose (UA) Ur Leukocyte Esterase Urine WBC Urine Bacteria Urine Mucus Urine Yeast (Budding) 03/07/20 03/07/20 03/06/20 04:53 04:53 13:37 RBC 3.97 L Hgb Hct Carbon Dioxide 21 L Anion Gap 17.0 H Glucose 161 H 128 H Hemoglobin A1c Phosphorus 4.7 H Triglycerides 215 H Urine Appearance Urine Glucose (UA) Ur Leukocyte Esterase Urine WBC Urine Bacteria Urine Mucus Urine Yeast (Budding) 03/06/20 13:13 RBC Hgb Hct Carbon Dioxide Anion Gap Glucose Hemoglobin A1c Phosphorus Triglycerides Urine Appearance Hazy A Urine Glucose (UA) >=500 A Ur Leukocyte Esterase 500 A Urine WBC 5 H Urine Bacteria Few A Urine Mucus Mod A Urine Yeast (Budding) Many A Meds: Medications Acetaminophen (Tylenol) 650 mg PO Q6HP PRN; Protocol PRN Reason: Per Pain Protocol/Fever > 101 Aspirin (Aspirin) 81 mg PO BID [facility] Last Admin: 03/07/20 20:45 Dose: 81 mg Documented by: Bisacodyl (Dulcolax) 10 mg NC Q2-3DAYS PRN PRN Reason: Constipation Dextrose (Dextrose 50%) 0 ml IV UD PRN PRN Reason: Hypoglycemia Diagnostic Test (Pha) (Accu-Chek) [address] [facility] Last Admin: 03/07/20 20:45 Dose: 1 each Documented by: Diphenhydramine HCl (Benadryl) 25 mg IV Q6HP PRN PRN Reason: Allergic Symptoms Last Admin: 03/07/20 08:03 Dose: 25 mg Documented by: Docusate Sodium (Colace) 100 mg PO BID [facility] Last Admin: 03/07/20 20:45 Dose: 100 mg Documented by: Glucose (Insta-Glucose) 15 gm PO PRN PRN PRN Reason: Hypoglycemia Hydromorphone HCl (Dilaudid) 0 mg IV Q2HP PRN; Protocol PRN Reason: Per Pain Protocol Last Admin: 03/08/20 06:20 Dose: 0.5 mg Documented by: Potassium Chloride 40 meq/ (Dextrose) 520 mls @ 130 mls/hr IV UD PRN PRN Reason: K+ = or < 3.5 Acetaminophen (Ofirmev) 650 mg in 65 mls @ 130 mls/hr IV Q6HP PRN; Protocol PRN Reason: Per Pain Protocol/Fever > 101 Magnesium Sulfate (Magnesium Sulfate) 2 gm in 50 mls @ 50 mls/hr IV UD PRN PRN Reason: MG = or < 1.7 Dextrose/Sodium Chloride (Dextrose 5%-1/2ns Iv Solution) 1,000 mls @ 50 mls/hr IV .Q20H [facility] Last Admin: 03/07/20 15:21 Dose: 50 mls/hr Documented by: Insulin Human Lispro (Humalog) 0 unit SQ [facility]; Protocol Last Admin: 03/07/20 20:45 Dose: Not Given Documented by: Iron Carb/Multivit/Child Protective Services Social Worker/Folic Acid (Multivitamin W/Minerals) 1 tab PO DAILY [facility] Last Admin: 03/07/20 13:53 Dose: Not Given Documented by: Ketorolac Tromethamine (Toradol) 15 mg IV Q6HP PRN; Protocol PRN Reason: Per Pain Protocol Stop: 03/09/20 13:48 Last Admin: 03/07/20 23:36 Dose: 15 mg Documented by: Magnesium Hydroxide (Milk Of Magnesia) 30 ml PO BIDP PRN PRN Reason: Constipation Ondansetron HCl (Zofran Odt) 4 mg SL Q4-6HP PRN; Protocol PRN Reason: Nausea And Vomiting Ondansetron HCl (Zofran) 4 mg IV Q4HP PRN; Protocol PRN Reason: Nausea And Vomiting Oxycodone HCl (Roxicodone) 5 mg PO Q4HP PRN; Protocol PRN Reason: Per Pain Protocol Last Admin: 03/07/20 23:34 Dose: 5 mg Documented by: Polyethylene Glycol (Miralax) 17 gm PO DAILYP PRN PRN Reason: Constipation Potassium Chloride (Klor-Con) 40 meq PO DAILYP PRN PRN Reason: K+ < 3.5 Senna (Senokot) 2 tab PO HS [facility] Last Admin: 03/07/20 20:44 Dose: 2 tab Documented by: Sitagliptin Phosphate (Januvia) 100 mg PO DAILY [facility] Last Admin: 03/07/20 13:52 Dose: Not Given Documented by: Sodium Biphosphate/Sodium Phosphate (Fleets Adult) 1 dose NC Q3-4DAYS PRN PRN Reason: Constipation Sodium Chloride (Saline Flush) 10 ml IV Q8 [facility] Last Admin: 03/08/20 05:28 Dose: 10 ml Documented by: Temazepam (Restoril) 15 mg PO HSP PRN PRN Reason: Insomnia Throat Lozenges (Cepacol) 1 lozenge PO PRN PRN PRN Reason: Sore Throat A/P Narrative A/P Narrative: * Right hip fracture-postop day 1. Ongoing physical therapies. Anticipate SNF transfer in 48 hours. Pain management per orthopedics * History of DM type II continue Metformin/CCD * Hyperlipidemia continue statin * Hypothyroidism continue thyroxine * History of hypertension well-controlled on home dose lisinopril * Full code * Prophylaxis on twice daily aspirin per orthopedics Plan * Continue postop care/pain management/DVT prophylaxis per orthopedics * Pre-existing medical condition management as above * Directed therapies including PT OT/nutrition support * Discharge plan per case management likely SNF in 48 hours Time Spent With Patient Time: Total time spent is greater than 50% in coordination of care (as documented) at patient's floor/unit and/or counseling patient: QUALITY VTE Deep Vein Thrombosis/Pulmonary Embolism Present on Admission: No
[2020-03-08] MEDS: DOCUSATE SODIUM 100 MG CAPSULE PO SCH ×2 (08:12→20:49)
[2020-03-08] MEDS: ASPIRIN 81 MG TAB.CHEW PO SCH ×2 (08:15→20:49)
[2020-03-08] MEDS: INSULIN LISPRO 1 UNIT/0.01 ML UNIT SQ SCH ×4 (08:15→20:59)
[2020-03-08] MEDS: sitaGLIPtin 100 MG TABLET PO SCH (08:18)
[2020-03-08] MEDS: MULTIVIT,THER IRON,CA,FA & MIN 1 TABLET PO SCH (08:18)
--- NOTE | 2020-03-08 09:57 | XRay Report ---
HISTORY: Interval change, recent fall from a chair FINDINGS: The lungs remain clear and well expanded. The heart size, mediastinum, nela and pleura are normal. No rib fracture is seen on this portable x-ray. 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 There has been no significant change since 03/06/20. IMPRESSION: No acute abnormality Interpreted and Authenticated by: Lamin Frye 03/08/20
[2020-03-08] MEDS ORDERED: FLUCONAZOLE 150 MG TABLET PO ONE (10:28)
--- NOTE | 2020-03-08 10:40 | Discharge Plan ---
Discharge Instructions - ADDIE Patient Instructions Total Hip Protocol: Follow activity instructions as provided by Physical Therapy. Dressing Care: May shower in 2 days Discharge Plan Patient/Caregiver Discharge Instructions Activity: ambulate only with your walker Diet: Regular Diet Prescriptions: New oxycodone 5 mg Tablet 5 mg PO Q4HP PRN (Reason: Per Pain Protocol) Qty: 40 RF: 0 No Action metformin 500 mg tablet 500 mg PO QDAY RF: 0 Trulicity 3 mg/0.5 mL pen injector 3 mg SUB-Q QWEEK RF: 0 glipizide 5 mg Tablet See Rx Instructions .ROUTE .COMPLEX RF: 0 Follow Up Plan Follow up with: Chago Sandoval [Primary Care Provider] - Patient Disposition: Home, Self-Care Rehab Potential: Good Overall status at discharge: patient is not back to baseline Discharge Orders: Discharge Order (Routine); Ordered 03/08/20 Ordered By: Elgin Carty
[2020-03-08] MEDS: oxyCODONE HCL 5 MG TABLET PO PRN (12:34)
--- NOTE | 2020-03-08 12:45 | Internal Med Progress Note ---
SUBJECTIVE Subjective Patient information: Note initiated : 03/08/20 at 12:42 pm Service Date, if different from initiated Date: [] Patient: Lupe Sanchez a 59 y/o F admitted on 03/06/20 for fell out of chair. Chief Complaint: [] Interval history: Ms. Sanchez is a 59 year old F to bilateral BKA/diabetes who is otherwise fairly independent and lives alone. Patient was in her baseline state of health until on the while she was trying to bend to lift her box fell on the floor landing on her right side. She was able to get up and settle herself from the chair. She experienced minimal discomfort and continued to work with the symptoms for the next few days until she presents to the ER for evaluation. Initial work-up was consistent with right hip fracture. Dr. Sena orthopedic was consulted and advised hospitalization for operative intervention. Subsequently hospitalist service was consulted At the time of my evaluation patient is alert and oriented. She denies active distress. She denies loss of consciousness during the episode or lightheadedness dizziness chest pain. She attributes to fall purely mechanical in nature getting off balance. She uses prosthetic limbs and has been very independent. Denies history of stroke except age 25 due to pheochromocytoma when she had ischemic limbs requiring bilateral amputation and a CVA. Ever since she has not had any hospitalizations or cardiac stents. She does not smoke or drink and does not carry significant risk factors 1/1-patient doing well overnight on pain control. Surgery this morning. Currently n.p.o. Stable hemodynamics. Will review postop. No concerns expressed by nursing staff 1/2-patient seen in room. No overnight events. D5 half NS discontinued. Tolerating diet. Patient expressed concerns about discharging home due to deconditioning/instability and that she lives alone. She questioned about possibility of short-term rehab. Case management to coordinate. Continue therapies. Anticipate discharge in 48 hours 03/09 Constitutional Vitals: Vital Signs Temp Pulse Resp BP Pulse Ox 97.9 F 95 H 16 116/69 99 03/08/20 12:00 03/08/20 12:00 03/08/20 12:00 03/08/20 12:00 03/08/20 12:00 Period Temp Pulse Resp BP Sys/Huertas Pulse Ox Last 24 Hr 96.7 F-98.1 F 85-122 7-18 98-147/54-77 96-100 Intake and Output 03/07/20 03/08/20 03/08/20 21:59 05:59 13:59 Intake Total 3330 Output Total 700 800 900 Balance 2630 -800 -900 Weight 58.598 kg Intake & Output: Intake & Output 03/07/20 03/08/20 03/08/20 21:59 05:59 13:59 Intake Total 3330 Output Total 700 800 900 Balance 2630 -800 -900 Weight 58.598 kg Intake: IV 1130 Sodium Chloride 0.9% 1,000 ml @ 1000 50 mls/hr IV .Q20H [facility] Rx#: [id number] Lactated Ringers 1,000 ml @ 20 40 mls/hr IV .Q24H [facility] Rx#: [id number] Oral 600 IV - Manual Only 1600 Output: Urine Catheter Amount 700 Void Amount 800 900 Other: Urine Appearance Clear Clear Clear Urine Color Bright Yellow Bright Yellow Bright Yellow Urine Odor Normal Strong Strong # Voids 1 1 Exam: General: Alert, Awake, No acute Distress Eyes/N/T: EOMI, Head/Neck: neck supple, CV: RRR, No murmurs, Pulm: Clear b/l, no wheezing/rhonchi/rales Abd: soft, nontender, +BS x4 Ext: no clubbing/cyanosis/edema Neuro: Alert, no focal deficits, moves all extremities, Skin: warm/dry OBJ DATA Labs CBC & Chem 7: 03/08/20 05:28 03/08/20 05:28 Labs: Abnormal Lab Results 03/08/20 03/08/20 03/07/20 05:28 05:28 04:53 RBC 3.55 L Hgb 11.1 L Hct 33.9 L Carbon Dioxide Anion Gap Glucose 240 H Hemoglobin A1c 8.3 H Phosphorus Triglycerides 165 H Urine Appearance Urine Glucose (UA) Ur Leukocyte Esterase Urine WBC Urine Bacteria Urine Mucus Urine Yeast (Budding) 03/07/20 03/07/20 03/06/20 04:53 04:53 13:37 RBC 3.97 L Hgb Hct Carbon Dioxide 21 L Anion Gap 17.0 H Glucose 161 H 128 H Hemoglobin A1c Phosphorus 4.7 H Triglycerides 215 H Urine Appearance Urine Glucose (UA) Ur Leukocyte Esterase Urine WBC Urine Bacteria Urine Mucus Urine Yeast (Budding) 03/06/20 13:13 RBC Hgb Hct Carbon Dioxide Anion Gap Glucose Hemoglobin A1c Phosphorus Triglycerides Urine Appearance Hazy A Urine Glucose (UA) >=500 A Ur Leukocyte Esterase 500 A Urine WBC 5 H Urine Bacteria Few A Urine Mucus Mod A Urine Yeast (Budding) Many A Meds: Medications Acetaminophen (Tylenol) 650 mg PO Q6HP PRN; Protocol PRN Reason: Per Pain Protocol/Fever > 101 Aspirin (Aspirin) 81 mg PO BID [facility] Last Admin: 03/08/20 08:15 Dose: 81 mg Documented by: Bisacodyl (Dulcolax) 10 mg OR Q2-3DAYS PRN PRN Reason: Constipation Dextrose (Dextrose 50%) 0 ml IV UD PRN PRN Reason: Hypoglycemia Diagnostic Test (Pha) (Accu-Chek) 1 each FS [facility] Last Admin: 03/08/20 12:10 Dose: 1 each Documented by: Diphenhydramine HCl (Benadryl) 25 mg IV Q6HP PRN PRN Reason: Allergic Symptoms Last Admin: 03/07/20 08:03 Dose: 25 mg Documented by: Docusate Sodium (Colace) 100 mg PO BID [facility] Last Admin: 03/08/20 08:12 Dose: 100 mg Documented by: Glucose (Insta-Glucose) 15 gm PO PRN PRN PRN Reason: Hypoglycemia Hydromorphone HCl (Dilaudid) 0 mg IV Q2HP PRN; Protocol PRN Reason: Per Pain Protocol Last Admin: 03/08/20 06:20 Dose: 0.5 mg Documented by: Potassium Chloride 40 meq/ (Dextrose) 520 mls @ 130 mls/hr IV UD PRN PRN Reason: K+ = or < 3.5 Acetaminophen (Ofirmev) 650 mg in 65 mls @ 130 mls/hr IV Q6HP PRN; Protocol PRN Reason: Per Pain Protocol/Fever > 101 Magnesium Sulfate (Magnesium Sulfate) 2 gm in 50 mls @ 50 mls/hr IV UD PRN PRN Reason: MG = or < 1.7 Dextrose/Sodium Chloride (Dextrose 5%-1/2ns Iv Solution) 1,000 mls @ 50 mls/hr IV .Q20H [facility] Last Admin: 03/07/20 15:21 Dose: 50 mls/hr Documented by: Insulin Human Lispro (Humalog) 0 unit SQ [facility]; Protocol Last Admin: 03/08/20 12:36 Dose: 6 unit Documented by: Iron Carb/Multivit/Marissa/Folic Acid (Multivitamin W/Minerals) 1 tab PO DAILY [facility] Last Admin: 03/08/20 08:18 Dose: Not Given Documented by: Ketorolac Tromethamine (Toradol) 15 mg IV Q6HP PRN; Protocol PRN Reason: Per Pain Protocol Stop: 03/09/20 13:48 Last Admin: 03/07/20 23:36 Dose: 15 mg Documented by: Magnesium Hydroxide (Milk Of Magnesia) 30 ml PO BIDP PRN PRN Reason: Constipation Ondansetron HCl (Zofran Odt) 4 mg SL Q4-6HP PRN; Protocol PRN Reason: Nausea And Vomiting Ondansetron HCl (Zofran) 4 mg IV Q4HP PRN; Protocol PRN Reason: Nausea And Vomiting Oxycodone HCl (Roxicodone) 5 mg PO Q4HP PRN; Protocol PRN Reason: Per Pain Protocol Last Admin: 03/08/20 12:34 Dose: 5 mg Documented by: Polyethylene Glycol (Miralax) 17 gm PO DAILYP PRN PRN Reason: Constipation Potassium Chloride (Klor-Con) 40 meq PO DAILYP PRN PRN Reason: K+ < 3.5 Senna (Senokot) 2 tab PO HS [facility] Last Admin: 03/07/20 20:44 Dose: 2 tab Documented by: Sitagliptin Phosphate (Januvia) 100 mg PO DAILY [facility] Last Admin: 03/08/20 08:18 Dose: Not Given Documented by: Sodium Biphosphate/Sodium Phosphate (Fleets Adult) 1 dose OR Q3-4DAYS PRN PRN Reason: Constipation Sodium Chloride (Saline Flush) 10 ml IV Q8 [facility] Last Admin: 03/08/20 05:28 Dose: 10 ml Documented by: Temazepam (Restoril) 15 mg PO HSP PRN PRN Reason: Insomnia Throat Lozenges (Cepacol) 1 lozenge PO PRN PRN PRN Reason: Sore Throat A/P Narrative A/P Narrative: A: *Right hip fracture: s/p ORIF -Anticipate SNF transfer. Pain management per orthopedics * History of DM type II continue Metformin/CCD * Hyperlipidemia continue statin * Hypothyroidism continue thyroxine * History of hypertension well-controlled on home dose lisinopril Plan: * Continue postop care/pain management/DVT prophylaxis per orthopedics * SSI * home ACEI * Directed therapies including PT OT/nutrition support * Discharge plan per case management likely SNF likely tuesday * ppx: bid asa per orthopedics full code Time Spent With Patient Time: Total time spent is greater than 50% in coordination of care (as documented) at patient's floor/unit and/or counseling patient: QUALITY VTE Deep Vein Thrombosis/Pulmonary Embolism Present on Admission: No
[2020-03-08] MEDS ORDERED: oxyCODONE HCL 5 MG TABLET PO PRN (14:00)
[2020-03-08] MEDS: DEXTROSE 5%-1/2NS 1,000 ML IV SCH (16:17)
--- NOTE | 2020-03-08 17:10 | Discharge Summary ---
Discharge Provider Provider Patient information: Note initiated : 03/08/20 at 5:09 pm Service Date, if different from initiated Date: [] Patient: Lupe Sanchez 59 y/o F admitted on 03/06/20 for fell out of chair. Chief Complaint: [] Date of admission: 03/06/20 17:19 Discharge date: 03/09/20 Primary care physician: Chago Sandoval Consults: 03/06/20 Consult to Physician [CONS] Stat Comment: Consulting Provider: Sage Talavera Reason For Exam: Physician to Consult Consult to Physician [CONS] Stat Comment: Consulting Provider: Elgin Carty Reason For Exam: Physician to Consult Discharge Meds Discharge Medications Home Medications dulaglutide 3 mg/0.5 mL subcutaneous pen injector 3 mg SUB-Q QWEEK 03/06/20 [History Confirmed 03/06/20 Last Taken 03/03/20 1 Injection] glipizide 10 mg PO BID 03/06/20 [History Confirmed 03/08/20 Last Taken 03/06/20] metformin 500 mg tablet 500 mg PO QDAY 03/06/20 [History Confirmed 03/09/20 Last Taken 03/05/20 500 mg] Jardiance 25 mg PO QDAY 03/08/20 [History Confirmed 03/08/20 Last Taken Unknown] fenofibrate 160 mg PO QDAY 03/08/20 [History Confirmed 03/08/20 Last Taken Unknown] lisinopril 10 mg PO DAILY 03/08/20 [History Confirmed 03/08/20 Last Taken Unknown] oxycodone 5 mg PO Q4HP PRN #40 tab 03/08/20 [Rx Last Taken Unknown] COURSE Hospital Course Hospital course: interval history: Ms. Sanchez is a 59 year old F to bilateral BKA/diabetes who is otherwise fairly independent and lives alone. Patient was in her baseline state of health until on the while she was trying to bend to lift her box fell on the floor landing on her right side. She was able to get up and settle herself from the chair. She experienced minimal discomfort and continued to work with the symptoms for the next few days until she presents to the ER for evaluation. Initial work-up was consistent with right hip fracture. Dr. Sena orthopedic was consulted and advised hospitalization for operative intervention. Subsequently hospitalist service was consulted At the time of my evaluation patient is alert and oriented. She denies active distress. She denies loss of consciousness during the episode or lightheadedness dizziness chest pain. She attributes to fall purely mechanical in nature getting off balance. She uses prosthetic limbs and has been very independent. Denies history of stroke except age 25 due to pheochromocytoma when she had ischemic limbs requiring bilateral amputation and a CVA. Ever since she has not had any hospitalizations or cardiac stents. She does not smoke or drink and does not carry significant risk factors /-patient doing well overnight on pain control. Surgery this morning. Currently n.p.o. Stable hemodynamics. Will review postop. No concerns expressed by nursing staff 03/08-patient seen in room. No overnight events. D5 half NS discontinued. Tolerating diet. Patient expressed concerns about discharging home due to deconditioning/instability and that she lives alone. She questioned about possibility of short-term rehab. Case management to coordinate. Continue therapies. Anticipate discharge in 48 hours 03/09 No overnight event or new complaints. Stable for discharge home with home health. A: *Right hip fracture: s/p ORIF -Anticipate SNF transfer. Pain management per orthopedics History of DM type II continue Metformin/CCD Hyperlipidemia continue statin Hypothyroidism continue thyroxine History of hypertension well-controlled on home dose lisinopril Discharge diagnosis: Right hip fracture Secondary discharge diagnosis: Diabetes hypothyroidism hypertension Time Spent with Patient Time attestation: Total time spent providing and/or coordinating discharge services: Time spent: Greater than 30 minutes EXAM Constitutional Vitals: Temp Pulse Resp BP Pulse Ox 98.4 F 98 H 16 96/62 94 03/08/20 16:00 03/08/20 16:00 03/08/20 16:00 03/08/20 16:00 03/08/20 16:00 Discharge Data Data Completed and Pending Labs on day of discharge: Labs from last 24 hours 03/08/20 03/08/20 05:28 05:28 WBC 9.6 RBC 3.55 L Hgb 11.1 L Hct 33.9 L MCV 95.5 MCH 31.3 MCHC 32.7 RDW 11.9 Plt Count 347 MPV 9.8 Neut % (Auto) 75.7 Lymph % (Auto) 17.7 Gaston % (Auto) 6.5 Eos % (Auto) 0 Baso % (Auto) 0.1 Lymph # (Auto) 1.69 Gaston # (Auto) 0.62 Eos # (Auto) 0 Baso # (Auto) 0.01 Absolute Neutrophils 7.25 Sodium 136 Potassium 4.3 Chloride 98 Carbon Dioxide 24 Anion Gap 14.0 BUN 14 Creatinine 0.9 GFR Calculation 70 Glucose 240 H Uric Acid 5.1 Calcium 9.0 Phosphorus 3.8 Magnesium 2.0 Total Bilirubin < 0.2 Direct Bilirubin < 0.2 GGT 27 AST 19 ALT 13 Alkaline Phosphatase 45 Lactate Dehydrogenase 165 Total Protein 6.3 Albumin 3.7 Globulin 2.6 Albumin/Globulin Ratio 1.4 Triglycerides 165 H Discharge Plan Patient/Caregiver Discharge Instructions Activity: ambulate only with your walker Diet: Regular Diet Prescriptions: New oxycodone 5 mg Tablet 5 mg PO Q4HP PRN (Reason: Per Pain Protocol) Qty: 40 RF: 0 Continued metformin 500 mg tablet 500 mg PO QDAY RF: 0 Trulicity 3 mg/0.5 mL pen injector 3 mg SUB-Q QWEEK RF: 0 glipizide 5 mg Tablet 10 mg PO BID RF: 0 lisinopril 10 mg Tablet 10 mg PO DAILY RF: 0 fenofibrate 160 mg Tablet 160 mg PO QDAY RF: 0 Jardiance 25 mg Tablet 25 mg PO QDAY RF: 0 Follow Up Plan Follow up with: Chago Sandoval [Primary Care Provider] - Elgin Carty MD [Physician] - Patient Disposition: Home Health Service Rehab Potential: Good Overall status at discharge: patient is not back to baseline Discharge Orders: Discharge Order (Routine); Ordered 03/08/20 Ordered By: Elgin Carty QUALITY VTE Deep Vein Thrombosis/Pulmonary Embolism Present on Admission: No
[2020-03-08] MEDS: SENNOSIDES 1 TABLET PO SCH (20:49)
[2020-03-08] MEDS: KETOROLAC 15 MG/ML VIAL IV PRN (20:58)
[2020-03-09] MEDS: 0.9 % SODIUM CHLORIDE 10 ML SYRINGE IV SCH ×2 (06:02→12:01)
[2020-03-09 07:29] LABS: Basophils # (Auto) 0.04 K/mcL (0.00-0.20); Basophils % (Auto) 0.4 % (0.0-2.0); Eosinophils # (Auto) 0.13 K/mcL (0.00-0.70); Eosinophils % (Auto) 1.4 % (0.0-7.0); Hematocrit 35.5 % (36.0-48.0); Hemoglobin 11.2 g/dL (12.0-15.0); Lymphocytes # (Auto) 3.64 K/mcL (1.50-4.80); Lymphocytes % (Auto) 39.4 % (15.0-49.0); Mean Cell Volume 98.6 fL (80.0-100.0); Mean Corpuscular HGB Conc 31.5 g/dL (31.0-36.0); Mean Platelet Volume 9.8 fL (7.4-10.4); Monocytes # (Auto) 0.62 K/mcL (0.10-0.90); Monocytes % (Auto) 6.7 % (1.0-12.0); Neutrophils % (Auto) 52.1 % (38.0-78.0); Platelet Count 345 K/mcL (140-440); Red Cell Distribution Width 12.3 % (11.5-14.5); WBC 9.2 K/mcL (4.5-11.0)
[2020-03-09] MEDS: sitaGLIPtin 100 MG TABLET PO SCH (08:06)
[2020-03-09] MEDS: ASPIRIN 81 MG TAB.CHEW PO SCH (08:06)
[2020-03-09] MEDS: MULTIVIT,THER IRON,CA,FA & MIN 1 TABLET PO SCH (08:06)
[2020-03-09] MEDS: DOCUSATE SODIUM 100 MG CAPSULE PO SCH (08:07)
[2020-03-09] MEDS: INSULIN LISPRO 1 UNIT/0.01 ML UNIT SQ SCH ×2 (08:07→11:56)
--- NOTE | 2020-03-10 06:58 | Consultation ---
DATE OF CONSULTATION: 03/06/2020 HISTORY OF PRESENT ILLNESS: A pleasant 59-year-old female with bilateral amputee, who has subsequently fallen out of her wheelchair, sustaining an injury to the right hip. She was unable to bear weight over the last week and it seemed to worsen rather than improve. She had x-rays that confirmed a femoral neck fracture displaced. She is otherwise fairly healthy. She does ambulate with the use of prosthesis. She says she stands frequently and is an ambulator. She does use a wheelchair and has been because of the severity of the pain in the recent past. Initial workup was x-rays. She denies any shortness of breath or loss of consciousness with her fall. She attributes to follow up yearly to a mechanical problem losing her balance and having the fall. She uses prosthesis as described to ambulate short distances around her kitchen. 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 Ever since, she has not had any hospitalizations for any cardiac stents or any other problem. She denies smoking or drinking. She denies constitutional symptoms and has felt fairly healthy. REVIEW OF SYSTEMS: [employer] point systems is otherwise negative. Problem today is acute right hip fracture. She has a contusion. She has hip pain and a fall. PAST MEDICAL HISTORY: She has had amputations bilaterally as noted prior. SOCIAL HISTORY: Denies smoking or drinking. MEDICATIONS: Include glipizide, but well controlled sugars. In fact, today her blood sugar level is below 100. She takes metformin 500 mg 1 p.o. every day. She takes subcutaneous injections of an insulin-dependent injection. ALLERGIES: CODEINE, WHICH IS MORE OF SHORTNESS OF BREATH AND RASH. PHYSICAL EXAMINATION: GENERAL: She is a very pleasant female. She is alert, oriented, cooperative. VITAL SIGNS: Temperature 97.5, pulse 87 and regular, respiratory rate 16, blood pressure 109/71, pulse ox 99% without oxygen. EXTREMITIES: Her leg is not extremely painful to move the leg. She has a small contusion on the lateral aspect of the right lower extremity. She has an amputation on both sides with small ulcers or wounds on both. Lower extremities, no pitting edema. She does have the bilateral sores as noted. HEENT: Her nose is clear. LUNGS: She has no shortness of breath. She breathes without rales or rhonchi. Lungs are clear to auscultation. CARDIOVASCULAR: Normal S1, S2. Nonlabored breathing. NEUROLOGIC: She is not anxious. She has good sensation in the lower extremities. X-rays confirm an impacted femoral neck displaced or angulated greater than 35 degrees. White count 7.6; hematocrit 41.2; platelet count is 398,000. INR is normal at 0.9. DIAGNOSIS: Femoral neck fracture. ASSESSMENT AND PLAN: Will be a cemented hemiarthroplasty after giving her the option of open reduction internal fixation with screws or hemiarthroplasties. She has elected hemiarthroplasties. She does have some cystic changes within the hip presently. There is a high risk of avascular necrosis approximately 30%. We will proceed with a hemiarthroplasty. She understands the risks and benefits and agrees to proceed. Some of these include heart attack, strokes, infections, but these risks are the same whether we put screws in her hemiarthroplasty. RBH:emanuel Job ID: [id number] Doc ID: [id number] Elgin Carty MD
--- NOTE | 2020-03-10 09:07 | Operative Note ---
DATE OF OPERATION: 03/07/2020 PREOPERATIVE DIAGNOSIS: Femoral neck fracture on the right side. POSTOPERATIVE DIAGNOSIS: Femoral neck fracture on the right side. PROCEDURE: Right cemented hemiarthroplasty for a femoral neck fracture. SURGEON: Elgin Carty M.D. LEASING SALES CONSULTANT: Ivan Molina PA-C. The PA's assistance was required for the safe and efficient completion of the entire case. This provider's expertise and technical skill were required throughout the case. The PA assisted with preoperative coordination, intraoperative retraction, wound closure, dressing and splint application, as well as postoperative documentation and care coordination. ANESTHESIA: General LMA anesthesia. COMPLICATIONS: None. DESCRIPTION OF PROCEDURE: The patient was brought to the operating room, put to sleep with general LMA anesthesia. A timeout was performed confirming the operative site by initials, consent form, and x-rays. Once done, we made a superior approach to the hip. We identified the capsule which was released and then dislocated the fracture. This was made a new cut at 30 mm from the center of hip rotation, and the bony fragments were removed. We broached up to the size 5. Size 5 was trialed. This seemed to fit very well and very stable. We irrigated thoroughly with a 46 mm head. We then cemented into place a size 5 cemented stem from [employer] with 127-degree neck angle, a 2.5 mm neck length on the dual mobility ball or bipolar. This was tapped into place once the cement had dried. We irrigated and then reduced the hip into the joint, making sure it was stable. We repaired the capsule with #1 Ethibond. We closed the fascial layer with #1 Stratafix. The skin was closed with Stratafix and adhesive closure. The patient tolerated this well. There were no complications. RBH:shahida Job ID: [id number] Doc ID: [id number] Elgin Carty MD
== END 2020-03-09 13:15 | disposition home health service (06) | DRG 522 ==
LOC: ED 12:59 → MEDSUR 17:19
PROVIDERS: ADMIT Internal Medicine; ATTEND Internal Medicine

== ENCOUNTER 2022-03-21 11:50 | Inpatient (IN) ==
--- NOTE | 2022-03-21 12:14 | Emergency Department Note ---
Female Urogenital HPI General Chief complaint: Vaginal Bleeding Stated complaint: vaginal bleeding since last night Time Seen by Provider: 03/21/22 11:52 Source: patient and EMS Mode of arrival: ambulatory Limitations: no limitations History of Present Illness HPI Narrative: Narrative: Patient presents to the ED after being sent over from walk-in clinic due to vaginal bleeding. Patient states that she started having vaginal bleeding this morning about 7 AM when she went to urinate. She states that she she had a hip complete hysterectomy about a year ago due to an uterine neoplasm. She is currently on radiation therapy. Patient [place] fever, chills, abdominal pain, dysuria, hematuria, urinary frequency, andie trauma. Patient denies any other alleviating or aggravating factors. Related Data Home Medications Medication Instructions Recorded Confirmed dulaglutide 3 mg/0.5 mL 3 mg subcut QWEEK 03/06/20 03/06/20 subcutaneous pen injector (Trulicity) glipizide 5 mg tablet 10 mg PO BID 03/06/20 03/08/20 metformin 500 mg tablet 500 mg PO QDAY 03/06/20 03/09/20 empagliflozin 25 mg tablet 25 mg PO QDAY 03/08/20 03/08/20 (Jardiance) fenofibrate 160 mg tablet 160 mg PO QDAY 03/08/20 03/08/20 lisinopril 10 mg tablet 10 mg PO DAILY 03/08/20 03/08/20 ondansetron 4 mg disintegrating 4 mg PO Q6H PRN Nausea 07/26/20 07/26/20 tablet Previous Rx's Medication Instructions Recorded oxycodone 5 mg tablet 5 mg PO Q4HP PRN Per Pain Protocol 03/08/20 #40 tabs aspirin 81 mg chewable tablet 81 mg PO BID #56 tabs 03/09/20 ciprofloxacin HCl 500 mg tablet 500 mg PO BID #14 tabs 07/26/20 (Cipro) prochlorperazine maleate 10 mg 10 mg PO Q6H PRN nausea and 07/26/20 tablet (Compazine) vomiting #14 tabs Allergies Allergy/AdvReac Type Severity Reaction Status Date / Time codeine [CODEINE] AdvReac Intermediate SHORTNESS Verified 03/21/22 12:03 OF BREATH Review of Systems ROS ROS Narrative: Narrative: All systems ED: reviewed and negative except as stated. PFSH Narrative Patient History Narrative: Narrative: Medical/Surgical/Family History All Active Problems (Updated 03/21/22 @ 15:25 by Alek West DO) Colitis (Acute) Nausea & vomiting (Acute) DVT (deep venous thrombosis) (Acute) Hematuria (Acute) UTI (urinary tract infection) (Acute) Hip fracture, right (Acute) Contusion (Acute) Hip pain (Acute) Fall (Acute) Medical History Contusion Fall Hip fracture, right Hip pain Social History Smoking Status: Never smoker Alcohol Intake Frequency: does not drink Substance Use: does not use Exam Narrative Narrative: Narrative: General Limitations: no limitations General appearance: Absent in distress Respiratory Respiratory: Present normal lung sounds bilaterally; Absent respiratory distress Cardiovascular Cardiovascular: Present regular rate and normal rhythm Adbominal Abdominal: Present soft and normal bowel sounds; Absent tenderness External: Present normal external exam and other (No active vaginal bleeding) Extremities Extremities: Present normal capillary refill and other (Bilateral lower extremity) Back Back: Absent CVA tenderness (R) or CVA tenderness (L) Neurological Neurological: Present alert and oriented X3 Psychiatric Psychiatric: Present tearful and polite Skin Skin: Present warm (WNL) and intact Course Course Course Narrative: Patient was evaluated for complaints of vaginal bleeding. Patient had no vagin al bleeding she was actually having hematuria. Martin catheter was placed and franklin blood returned. Labs revealed that patient's hemoglobin has dropped down to about 9.6 down from 12 back in January. Patient's blood pressure was soft upon arrival so she was given some IV fluids and her blood pressure responded appropriately. But after IV fluids were discontinued patient blood pressure again dropped. Patient's UA did reveal that she had a UTI so she was given some IV Rocephin. She does not meet sepsis criteria as she has normal white cell count and is afebrile and not tachycardic. Case was discussed with urologist from [place] who recommends the patient be admitted to the hospital for blood pressure monitoring and urology consult in the morning. He states that there is no need for transfer as there is nothing that they would do emergently within the next 48 hours. Case was discussed with hospitalist who has agreed to admit the patient. He request that three-way Martin catheter replaced which was successfully done by nursing staff. Plan of care was discussed with patient and her mother who was at bedside and expressed verbal understanding agreement. Should be noted the patient is emotionally liable. I did give her some IV Benadryl to help calm her down. Consultations Consultation #1: Case discussed with urology from [place] who recommends a patient be admitted admitted to the hospital for observation. He also recommends that patient maintain Martin catheter and have urology consult tomorrow. He states he would not recommend transfer at this time as there is nothing emergent that would happen within the next 48 hours for the patient from a urology standpoint. Time: 15:31 Consultation #2: Case discussed with hospitalist who has agreed to admit patient to the hospital. Time: 16:10 Vital Signs Vital signs: Vital Signs Temperature 97.3 F 03/21/22 11:59 Pulse Rate 83 03/21/22 11:59 Respiratory Rate 18 03/21/22 11:59 Blood Pressure 136/87 03/21/22 11:59 Pulse Oximetry (%) 100 03/21/22 11:59 Oxygen Delivery Method 03/21/22 11:59 Temperature 97.3 F 03/21/22 11:59 Pulse Rate 72 03/21/22 15:12 Respiratory Rate 18 03/21/22 11:59 Blood Pressure 77/62 03/21/22 14:37 Pulse Oximetry (%) 100 03/21/22 15:12 Oxygen Delivery Method 03/21/22 11:59 MDM MDM Narrative Medical decision making narrative: Narrative: Differential Diagnosis Differential Diagnosis: Abnormal vaginal bleeding, hematuria, UTI Medical Records Medical records reviewed: Yes I reviewed the patient's medical records. Lab Data Lab results reviewed: Yes I reviewed the patient's lab results. Result diagrams: 03/21/22 12:11 Labs: Lab Results 03/21/22 03/21/22 Range/Units 12:11 12:17 WBC 8.1 (4.5-11.0) K/mcL RBC 3.33 L (3.59-5.38) M/mcL Hgb 9.4 L (11.2-15.7) g/dL Hct 29.3 L (34.1-44.9) % POC Hct 30.0 L (36-48) MCV 88.0 (80.0-100.0) fL MCH 28.2 (26.0-34.0) pg MCHC 32.1 (31.0-36.0) g/dL RDW 14.3 (11.5-14.5) % Plt Count 39 L* (140-440) K/mcL MPV ---- (8.8-12.5) fL Immature Gran % (Auto) 0.9 H (0.0-0.5) % Neut % (Auto) 87.3 H (38.0-78.0) % Lymph % (Auto) 5.8 L (15.5-49.0) % [place] % (Auto) 4.6 (1.0-12.0) % Eos % (Auto) 1.2 (0.0-7.0) % Baso % (Auto) 0.2 (0.0-2.0) % Lymph # (Auto) 0.47 L (1.50-4.80) K/mcL [place] # (Auto) 0.37 (0.10-0.90) K/mcL Eos # (Auto) 0.10 (0.00-0.70) K/mcL Baso # (Auto) 0.02 (0.00-0.30) K/mcL Immature Gran # 0.07 H (0.00-0.05) K/mcl Absolute Neutrophils 7.02 (1.80-8.00) K/mcL POC Sodium 136 (133-145) POC Potassium 3.7 (3.3-5.1) POC Chloride 101 (96-108) POC Total CO2 25.0 (22-30) POC BUN 16 (6-20) POC Creatinine 0.9 (0.6-1.2) POC Glucose 179 H (70-105) POC WB Ioniz Calcium 1.12 L (1.16-1.32) Core Measures AMI Core Measures Followed: Yes Discharge Plan Patient/Caregiver Discharge Instructions Pt seen by CUSTOMER OPERATIONS INTERN/PA only: No Clinical Impression: Hematuria, UTI (urinary tract infection) Patient Disposition: Xfer As Outpt/Obs ([facility]) Condition: Fair Follow up with: Enma Garcia PA-C [Primary Care Provider] - Prescriptions: No Action metformin 500 mg tablet 500 mg PO QDAY Trulicity 3 mg/0.5 mL pen injector 3 mg SUB-Q QWEEK glipizide 5 mg Tablet 10 mg PO BID oxycodone 5 mg Tablet 5 mg PO Q4HP PRN (Reason: Per Pain Protocol) Qty: 40 0RF lisinopril 10 mg Tablet 10 mg PO DAILY fenofibrate 160 mg Tablet 160 mg PO QDAY Jardiance 25 mg Tablet 25 mg PO QDAY aspirin 81 mg Tablet,Chewable 81 mg PO BID Qty: 56 0RF ondansetron 4 mg Tablet,Disintegrating 4 mg PO Q6H PRN (Reason: Nausea) prochlorperazine maleate [Compazine] 10 mg tablet 10 mg PO Q6H PRN (Reason: nausea and vomiting) Qty: 14 0RF ciprofloxacin HCl [Cipro] 500 mg tablet 500 mg PO BID Qty: 14 0RF
[2022-03-21 12:19] LABS: POC Calcium, Ionized 1.12 (1.16-1.32); POC Creatinine 0.9 (0.6-1.2); POC Potassium 3.7 (3.3-5.1)
[2022-03-21 13:11] LABS: Basophils # (Auto) 0.02 K/mcL (0.00-0.30); Basophils % (Auto) 0.2 % (0.0-2.0); Eosinophils % (Auto) 1.2 % (0.0-7.0); Hematocrit 29.3 % (34.1-44.9); Hemoglobin 9.4 g/dL (11.2-15.7); Lymphocytes # (Auto) 0.47 K/mcL (1.50-4.80); Lymphocytes % (Auto) 5.8 % (15.5-49.0); Mean Corpuscular HGB Conc 32.1 g/dL (31.0-36.0); Monocytes # (Auto) 0.37 K/mcL (0.10-0.90); Monocytes % (Auto) 4.6 % (1.0-12.0); Neutrophils % (Auto) 87.3 % (38.0-78.0); Platelet Count 39 K/mcL (140-440); RBC 3.33 M/mcL (3.59-5.38); Red Cell Distribution Width 14.3 % (11.5-14.5); WBC 8.1 K/mcL (4.5-11.0)
[2022-03-21] MEDS ORDERED: 0.9 % SODIUM CHLORIDE 1,000 ML IV ONE (14:05)
[2022-03-21] MEDS ORDERED: cefTRIAXone 2 GM in DEXTROSE 5% IN WATER 50 ML IV ONE (15:25)
[2022-03-21] MEDS ORDERED: diphenhydrAMINE 50 MG/ML VIAL IV ONE (16:03)
[2022-03-21 16:10] LABS: Appearance,Urine TURBID (Clear); Bacteria,Urine MOD /hpf (0); Bilirubin,Urine Negative (Negative); Color,Urine DK. BROWN; Culture Indicated,Urine No; Glucose,Urine (UA) >=1000 mg/dL (Negative); Ketones,Urine Color Interference mg/dL (Negative); Leukocyte Esterase,Urine Color Interference /uL (Negative); Nitrate,Urine Color Interference (Negative); Protein,Urine >=300 mg/dL (Negative); Urine Blood LARGE ery/mcL (Negative); Urine Budding Yeast MANY /hpf; Urine RBC 152 /hpf (0-3); Urine Squamous Epithelial Cell 18 /hpf (0-4); Urine WBC > 182 /hpf (0-4); Urobilinogen,Urine Color Interference mg/dL
--- NOTE | 2022-03-21 16:47 | Internal Med History&Physical ---
HPI History of Present Illness Patient information: Note initiated : 03/21/22 at 4:43 pm Service Date, if different from initiated Date: [] Patient: Lupe Sanchez a 61 y/o F admitted on for vaginal bleeding since last night. Chief Complaint: [gross hematuria] Chief complaint: gross hematuria History of present illness: Ms. Sanchez is a 61 year old F uterine cancer, type 2 diabetes mellitus, DVT on Eliquis, frequent UTI, bilateral BKA, assisted resident, presenting with gross hematuria. The following history is limited by patient's clinical situations. Daughter is at the bedside but she does not know much about why or how the patient was being sent by the assisted to our ED. It was reported that the assisted staff found the patient have gross hematuria and is called EMS to send the patient to our ED for further evaluations. Gross hematuria continue to be observed in the ED. hemoglobin and hematocrit 9.4 and 29.3 today, as compared to baseline of 12.6 and 39.2. Vital signs significant with soft blood pressure latest set of blood pressure 77/62mmHg. UA suggesting the presence of bacterial/fungal UTI. ED doctor called also hospital urology for consultations and they recommend the patient to stay in our facility and consult our own urology tomorrow when it becomes available. Review of Systems ROS unobtainable: due to mental status PFSH PFSH All Active Problems (Updated 03/21/22 @ 16:52 by Carlos Calero MD) S/P BKA (below knee amputation) bilateral (Acute) History of stroke (Acute) Thrombocytopenia (Acute) Uterine cancer (Acute) T2DM (type 2 diabetes mellitus) (Acute) Colitis (Acute) Nausea & vomiting (Acute) DVT (deep venous thrombosis) (Acute) Hematuria (Acute) UTI (urinary tract infection) (Acute) Hip fracture, right (Acute) Contusion (Acute) Hip pain (Acute) Fall (Acute) Medical History Contusion Fall Hip fracture, right Hip pain Social History smoking status: Never smoker alcohol intake frequency: does not drink substance use type: does not use MEDS/ALLERGIES Home Medications and Allergies Home Medications Medication Instructions Recorded Confirmed Type dulaglutide 3 mg/0.5 mL 3 mg subcut QWEEK 12/31/20 12/31/20 History subcutaneous pen injector (Trulicity) glipizide 5 mg tablet 10 mg PO BID 03/06/20 03/08/20 History metformin 500 mg tablet 500 mg PO QDAY 03/06/20 03/09/20 History empagliflozin 25 mg tablet 25 mg PO QDAY 03/08/20 03/08/20 History (Jardiance) fenofibrate 160 mg tablet 160 mg PO QDAY 03/08/20 03/08/20 History lisinopril 10 mg tablet 10 mg PO DAILY 03/08/20 03/08/20 History oxycodone 5 mg tablet 5 mg PO Q4HP PRN Per Pain Protocol 03/08/20 Rx #40 tabs aspirin 81 mg chewable tablet 81 mg PO BID #56 tabs 03/09/20 Rx ciprofloxacin HCl 500 mg tablet 500 mg PO BID #14 tabs 07/26/20 Rx (Cipro) ondansetron 4 mg disintegrating 4 mg PO Q6H PRN Nausea 07/26/20 07/26/20 History tablet prochlorperazine maleate 10 mg 10 mg PO Q6H PRN nausea and 07/26/20 Rx tablet (Compazine) vomiting #14 tabs Allergies Allergy/AdvReac Type Severity Reaction Status Date / Time codeine [CODEINE] AdvReac Intermediate SHORTNESS Verified 03/21/22 12:03 OF BREATH EXAM Constitutional Vitals: Temp Pulse Resp BP Pulse Ox O2 Del Method 36.3 C 72 18 77/62 100 03/21/22 11:59 03/21/22 15:12 03/21/22 11:59 03/21/22 14:37 03/21/22 15:12 03/21/22 11:59 General appearance: cooperative Head Head exam: Present atraumatic and normocephalic Eye Eye exam: Present EOMI and PERRL ENT ENT exam: Present mucous membranes moist, normal exam and normal external ear exam Neck Neck exam: Present normal inspection; Absent lymphadenopathy, tenderness or thyromegaly Respiratory Respiratory exam: Absent accessory muscle use, respiratory distress or wheezes Cardiovascular Cardiovascular exam: Present normal rate and rhythm; Absent JVD Additional comments: port-a-cath on right chest wall GI/Abdominal GI/Abdominal exam: Present normal bowel sounds and soft; Absent organomegaly or tenderness Additional comments: Abdominal ventral surgical scar, well healed Additional comments: Martin catheter with gross hematuria Extremities Exam Extremities exam: Present full ROM and normal capillary refill; Absent normal inspection or tenderness Additional comments: Bilateral BKA Neurological Exam Neurological exam: Present alert, CN II-XII intact and oriented X3; Absent motor sensory deficit Psychiatric Psychiatric exam: Present normal affect and normal mood; Absent anxious or depressed Skin Skin exam: Present dry and intact DATA Data Completed and Pending Labs: Labs from last 24 hours 03/21/22 03/21/22 03/21/22 12:30 12:17 12:11 WBC 8.1 RBC 3.33 L Hgb 9.4 L Hct 29.3 L POC Hct 30.0 L MCV 88.0 MCH 28.2 MCHC 32.1 RDW 14.3 Plt Count 39 L* MPV ---- Immature Gran % (Auto) 0.9 H Neut % (Auto) 87.3 H Lymph % (Auto) 5.8 L [place] % (Auto) 4.6 Eos % (Auto) 1.2 Baso % (Auto) 0.2 Lymph # (Auto) 0.47 L [place] # (Auto) 0.37 Eos # (Auto) 0.10 Baso # (Auto) 0.02 Immature Gran # 0.07 H Absolute Neutrophils 7.02 POC Sodium 136 POC Potassium 3.7 POC Chloride 101 POC Total CO2 25.0 POC BUN 16 POC Creatinine 0.9 POC Glucose 179 H POC WB Ioniz Calcium 1.12 L Urine Color Dk. brown Urine Appearance Turbid A Urine pH 7.0 Ur Specific [place] 1.020 Urine Protein >=300 A Urine Glucose (UA) >=1000 A Urine Ketones Color interference A Urine Occult Blood Large A Urine Nitrate Color interference A Urine Bilirubin Negative Urine Urobilinogen Color interference A Ur Leukocyte Esterase Color interference A Urine RBC 152 H Urine WBC > 182 H Ur Squamous Epith Cells 18 H Urine Bacteria Mod A Urine Yeast (Budding) Many A Ur Culture Indicated? No A/P Assessment and plan (1) UTI (urinary tract infection): Status: Acute Qualifiers: Hematuria presence: with hematuria Urinary tract infection type: site unspecified Qualified Code(s): N39.0 - Urinary tract infection, site not specified; R31.9 - Hematuria, unspecified (2) Hematuria: Status: Acute Qualifiers: Hematuria type: gross Qualified Code(s): R31.0 - Gross hematuria (3) T2DM (type 2 diabetes mellitus): Status: Acute (4) Uterine cancer: Status: Acute (5) Thrombocytopenia: Status: Acute (6) History of stroke: Status: Acute (7) DVT (deep venous thrombosis): Status: Acute Qualifiers: Affected thrombotic vein of extremity: femoral Chronicity: acute DVT location: lower extremity Laterality: right Qualified Code(s): I82.411 - Acute embolism and thrombosis of right femoral vein (8) S/P BKA (below knee amputation) bilateral: Status: Acute Narrative A/P Narrative: Assessment and Plans: 1. Gross hematuria: DDx: secondary to anticoagulant therapy Eliquis, side effect of chemoradiation therapy, malignancy Inpatient PCU Consult urology Dr. Hanks in the morning Exchange 3 way urinary catheter Serial H/H to monitor blood count and transfuse if it keeps dropping or <7.0 Hold Aspirin/Eliquis 2. UTI, bacterial vs fungal: Serial lactic acid Blood culture Urine culture cbc w/ auto diff in the morning to trend WBC Rocephin Diflucan NS@100cc/hr 3. Thrombocytopenia: cbc w/ auto diff to trend plt count 4. T2DM: HgA1c Hold Metformin/Glipizide Lispro SSI AC HS Accu Check AC HS Hypoglycemia protocol Diabetic diet 5. h/o DVT: Hold Eliquis for concurrent gross hematuria 6. h/o stroke: Hold Aspirin for concurrent gross hematuria 7. h/o uterine cancer: Follow up with outpatient oncologist GI ppx: not currently indicated DVT ppx: SCDs Code status: Full Prognosis: guarded Disposition: inpatient PCU; [place] resident Time Spent With Patient Time: Total time spent is greater than 50% in coordination of care (as documented) at patient's floor/unit and/or counseling patient: Initial: Total time with patient: 55 - 74 minutes
[2022-03-21] MEDS ORDERED: cefTRIAXone 1 GM in DEXTROSE 5% IN WATER 50 ML IV SCH (17:39)
[2022-03-21] MEDS ORDERED: LACTULOSE 20 GM/30 ML ORAL.SOL PO PRN (17:39)
[2022-03-21] MEDS ORDERED: DEXTROSE 50% 50 ML VIAL IV PRN (17:39)
[2022-03-21] MEDS ORDERED: SENNOSIDES 1 TABLET PO PRN (17:39)
[2022-03-21] MEDS ORDERED: IPRATROPIUM/ALBUTEROL 3 ML AMPUL.NEB NEB PRN (17:39)
[2022-03-21] MEDS ORDERED: DEXTROSE 31 GM ORAL.SUSP PO PRN (17:39)
[2022-03-21] MEDS: INSULIN LISPRO 1 UNIT/0.01 ML UNIT SQ SCH ×2 (17:41→22:13)
[2022-03-21] MEDS: 0.9 % SODIUM CHLORIDE 1,000 ML IV SCH (18:05)
[2022-03-21] MEDS: FLUCONAZOLE 400 MG/200 ML BAG IV SCH (19:34)
[2022-03-21] MEDS: ACETAMINOPHEN 325 MG TABLET PO PRN (19:34)
[2022-03-21 19:41] LABS: Hematocrit 27.3 % (34.1-44.9); Hemoglobin 8.7 g/dL (11.2-15.7)
[2022-03-21] MEDS: DOCUSATE SODIUM 100 MG CAPSULE PO SCH (21:00)
[2022-03-21] MEDS: 0.9 % SODIUM CHLORIDE 10 ML SYRINGE IV SCH (21:00)
[2022-03-21] MEDS ORDERED: LOPERAMIDE 2 MG CAPSULE PO PRN (21:45)
[2022-03-21] MEDS ORDERED: LOPERAMIDE 2 MG CAPSULE PO ONE (21:54)
[2022-03-22] MEDS: 0.9 % SODIUM CHLORIDE 1,000 ML IV SCH ×5 (03:05→23:59)
[2022-03-22] MEDS: 0.9 % SODIUM CHLORIDE 10 ML SYRINGE IV SCH ×3 (05:47→19:59)
[2022-03-22 06:48] LABS: Basophils # (Auto) 0.02 K/mcL (0.00-0.30); Basophils % (Auto) 0.4 % (0.0-2.0); Eosinophils # (Auto) 0.12 K/mcL (0.00-0.70); Eosinophils % (Auto) 2.4 % (0.0-7.0); Hematocrit 29.7 % (34.1-44.9); Hemoglobin 9.1 g/dL (11.2-15.7); Lymphocytes # (Auto) 0.45 K/mcL (1.50-4.80); Mean Corpuscular HGB Conc 30.6 g/dL (31.0-36.0); Monocytes # (Auto) 0.25 K/mcL (0.10-0.90); Neutrophils % (Auto) 82.6 % (38.0-78.0); Platelet Count 39 K/mcL (140-440); RBC 3.23 M/mcL (3.59-5.38); Red Cell Distribution Width 14.6 % (11.5-14.5)
[2022-03-22 07:06] LABS: ALT/SGPT 8 U/L (<40); AST/SGOT 24 U/L (<32); Albumin 3.5 gm/dL (3.2-5.2); Albumin/Globulin Ratio 1.3 (1.0-2.3); Alkaline Phosphatase 52 U/L (39-117); Bilirubin,Total 0.2 mg/dL (0.1-1.0); Blood Urea Nitrogen 13 mg/dL (8-23); Calcium 8.6 mg/dL (8.6-10.4); Carbon Dioxide 24 mmol/L (22-30); Chloride 105 mmol/L (96-108); Globulin 2.6 gm/dL (2.2-3.7); Glomerular Filtration Rate 79; Glucose 131 mg/dL (70-105)
[2022-03-22] MEDS: INSULIN LISPRO 1 UNIT/0.01 ML UNIT SQ SCH ×4 (08:04→19:58)
[2022-03-22] MEDS: DOCUSATE SODIUM 100 MG CAPSULE PO SCH ×2 (08:04→19:59)
[2022-03-22] MEDS: cefTRIAXone 1 GM VIAL IV SCH (08:07)
[2022-03-22] MEDS: FLUCONAZOLE 400 MG/200 ML BAG IV SCH (08:07)
[2022-03-22] MEDS ORDERED: SODIUM CHLORIDE NASAL 1 SPRAY BOTTLE NAS PRN (08:44)
[2022-03-22] MEDS ORDERED: busPIRone 5 MG TABLET PO SCH (09:00)
--- NOTE | 2022-03-22 09:10 | Internal Med Progress Note ---
SUBJECTIVE Subjective Patient information: Note initiated : 03/22/22 at 9:01 am Service Date, if different from initiated Date: [] Patient: Lupe Sanchez a 61 y/o F admitted on 03/21/22 for vaginal bleeding since last night; hematuria. Chief Complaint: [] Interval history: Ms. Sanchez is a 61 year old F uterine cancer, type 2 diabetes mellitus, DVT on Eliquis, frequent UTI, bilateral BKA, [facility] resident, presenting with gross hematuria. The following history is limited by patient's clinical situations. Daughter is at the bedside but she does not know much about why or how the patient was being sent by the [facility] to our ED. It was reported that the [facility] staff found the patient have gross hematuria and is called EMS to send the patient to our ED for further evaluations. Gross hematuria continue to be observed in the ED. hemoglobin and hematocrit 9.4 and 29.3 today, as compared to baseline of 12.6 and 39.2. Vital signs significant with soft blood pressure latest set of blood pressure 77/62mmHg. UA suggesting the presence of bacterial/fungal UTI. ED doctor called also hospital urology for consultations and they recommend the patient to stay in our facility and consult our own urology tomorrow when it becomes available. 03/22: Gross hematuria resolved. H&H stable at 9.1/29.7. Patient denies any chest pain shortness of breath or palpitations. She denies any abdominal pain or pelvic pain. Afebrile overnight. Blood and urine culture no growth to date. CT abdomen pelvis w/ w/o contrast to look for intraabdominal/pelvic pathologies for hematuria. Consulting urologist Dr. Hanks for hematuria, recs. appreciated. Continue to hold Aspirin/Eliquis. Continue IV fluid NS@100cc/hr, Rocephin, and Diflucan for UTI. Constitutional Vitals: Vital Signs Temp Pulse Resp BP Pulse Ox O2 Del Method 36.6 C 72 15 128/107 100 03/22/22 08:03 03/22/22 06:01 03/22/22 08:03 03/22/22 08:03 03/22/22 08:03 03/22/22 08:03 Period Temp Pulse Resp BP Sys/Huertas Pulse Ox O2 Del Method O2 Flow Rate Last 24 Hr 36.1 C-36.6 C 63-93 10-19 75-148/34-107 97-100 Room Air-Room Air Intake and Output 03/21/22 03/22/22 03/22/22 19:59 03:59 11:59 Intake Total 1286 1000 1000 Output Total 439 078 7723 Balance 986 425 -75 Weight 47.684 kg Intake & Output: Intake & Output 03/21/22 03/22/22 03/22/22 19:59 03:59 11:59 Intake Total 1286 1000 1000 Output Total 241 490 9482 Balance 986 425 -75 Weight 47.684 kg Intake: IV 3588 073 5384 Sodium Chloride 0.9% 1,000 ml @ 1000 1000 100 mls/hr IV .Q10H FAITH Rx#: [id number] Rocephin 2 gm In Dextrose 5% in 50 Water 50 ml @ 100 mls/hr IV ONCE ONE Rx#:[id number] Oral 236 800 Output: Urine Catheter Amount 575 650 Void Amount 425 Stool 300 Other: Urine Appearance Hematuria Sediment Cloudy Sediment Fem Cath Small Blood Clots Uretheral (Martin) Clear Urine Color Dark Red Yellow Dark Yellow Fem Cath Red Brown Uretheral (Martin) Dark Red Urine Odor Normal Stool Size Copious Stool Color Yellow Brown Stool Consistency Liquid Loose Watery # Bowel Movements 1 1 # of times incontinent of 1 Bowels Head Head exam: Present atraumatic and normal inspection Eye Eye exam: Present normal appearance ENT ENT exam: Present mucous membranes moist, normal exam and normal external ear exam Neck Neck exam: Present normal inspection Respiratory Respiratory exam: Present normal respiratory exam Cardiovascular Cardiovascular exam: Present normal rate and rhythm Additional comments: Port-a-cath right chest wall GI/Abdominal GI/Abdominal exam: Present normal bowel sounds Additional comments: Martin catheter in place Extremities Exam Extremities exam: Absent normal inspection Additional comments: Bilateral BKA Back Exam Back exam: Present normal inspection Neurological Exam Neurological exam: Present alert and oriented X3 Skin Skin exam: Present intact and warm OBJ DATA Labs CBC & Chem 7: 03/22/22 05:42 03/22/22 05:42 Labs: Abnormal Lab Results 03/22/22 03/22/22 03/21/22 05:42 05:42 18:56 RBC 3.23 L Hgb 9.1 L 8.7 L Hct 29.7 L 27.3 L POC Hct MCHC 30.6 L RDW 14.6 H Plt Count 39 L* Immature Gran % (Auto) 0.6 H Neut % (Auto) 82.6 H Lymph % (Auto) 9.0 L Lymph # (Auto) 0.45 L Immature Gran # Glucose 131 H POC Glucose POC WB Ioniz Calcium Urine Appearance Urine Protein Urine Glucose (UA) Urine Ketones Urine Occult Blood Urine Nitrate Urine Urobilinogen Ur Leukocyte Esterase Urine RBC Urine WBC Ur Squamous Epith Cells Urine Bacteria Urine Yeast (Budding) 03/21/22 03/21/22 03/21/22 12:30 12:17 12:11 RBC 3.33 L Hgb 9.4 L Hct 29.3 L POC Hct 30.0 L MCHC RDW Plt Count 39 L* Immature Gran % (Auto) 0.9 H Neut % (Auto) 87.3 H Lymph % (Auto) 5.8 L Lymph # (Auto) 0.47 L Immature Gran # 0.07 H Glucose POC Glucose 179 H POC WB Ioniz Calcium 1.12 L Urine Appearance Turbid A Urine Protein >=300 A Urine Glucose (UA) >=1000 A Urine Ketones Color interference A Urine Occult Blood Large A Urine Nitrate Color interference A Urine Urobilinogen Color interference A Ur Leukocyte Esterase Color interference A Urine RBC 152 H Urine WBC > 182 H Ur Squamous Epith Cells 18 H Urine Bacteria Mod A Urine Yeast (Budding) Many A Meds: Medications Acetaminophen (Acetaminophen 325 Mg Tablet) 650 mg PO Q6HP PRN; Protocol PRN Reason: Per Pain Protocol/Fever > 101 Last Admin: 03/21/22 19:34 Dose: 650 mg Albuterol/Ipratropium (Ipratropium/Albuterol 3 Ml Ampul.Neb) 3 ml NEB Q4HRT PRN PRN Reason: Wheezing Buspirone HCl (Buspirone 5 Mg Tablet) 10 mg PO BID [facility] Ceftriaxone Sodium (Ceftriaxone 1 Gm Vial) 1 gm IV Q24H [facility] Last Admin: 03/22/22 08:07 Dose: 1 gm Dextrose (Dextrose 50% 50 Ml Vial) 0 ml IV UD PRN PRN Reason: Per Sliding Scale Diagnostic Test (Pha) (Accu-Chek 1 Each Strip) 1 each FS ACHS [facility] Last Admin: 03/22/22 08:04 Dose: 1 each Docusate Sodium (Docusate Sodium 100 Mg Capsule) 100 mg PO BID [facility] Last Admin: 03/22/22 08:04 Dose: Not Given Fenofibrate (Fenofibrate 43 Mg Capsule) 129 mg PO DAILY [facility] Glucose (Dextrose 31 Gm Oral.Susp) 15 gm PO PRN PRN PRN Reason: Hypoglycemia Heparin Sodium (Porcine) (Heparin Flush 10 Units/Ml 5 Ml Syringe) 5 ml IV Q12 [facility] Last Admin: 03/22/22 08:03 Dose: Not Given Sodium Chloride (Sodium Chloride 0.9%) 1,000 mls @ 100 mls/hr IV .Q10H [facility] Last Admin: 03/22/22 04:16 Dose: 100 mls/hr Fluconazole (Diflucan) 400 mg in 200 mls @ 100 mls/hr IV Q24H [facility] Last Admin: 03/22/22 08:07 Dose: 100 mls/hr Ibuprofen (Ibuprofen 800 Mg Tablet) 800 mg PO Q8H PRN; Protocol PRN Reason: Pain Insulin Human Lispro (Insulin Lispro 1 Unit/0.01 Ml Unit) 0 unit SQ ACHS [facility]; Protocol Last Admin: 03/22/22 08:04 Dose: Not Given Lactulose (Lactulose 20 Gm/30 Ml Oral.Lala) 10 gm PO DAILYP PRN PRN Reason: Constipation Loperamide HCl (Loperamide 2 Mg Capsule) 2 mg PO Q2HP PRN PRN Reason: Diarrhea Lorazepam (Lorazepam 0.5 Mg Tablet) 0.5 mg PO Q4-6HP PRN PRN Reason: ANXIETY/SEDATION Non-Formulary Medication (Buspirone) 5 mg PO HS [facility] Ondansetron HCl (Ondansetron 4 Mg/2 Ml Vial) 4 mg IV Q4HP PRN; Protocol PRN Reason: Nausea And Vomiting Empagliflozin [ Jardiance] 25 Mg Tablet 1 dose PO QDAY [facility] Senna (Sennosides 1 Tablet) 2 tab PO HSP PRN PRN Reason: Constipation Sodium Chloride (0.9 % Sodium Chloride 10 Ml Syringe) 10 ml IV Q8 [facility] Last Admin: 03/22/22 05:47 Dose: 10 ml Sodium Chloride (0.9 % Sodium Chloride 10 Ml Syringe) 10 ml IV UD PRN PRN Reason: FLUSH Sodium Chloride (Sodium Chloride Nasal 1 [place] Bottle) 1 spray SJ DAILYP PRN PRN Reason: Congestion A/P Assessment and plan (1) UTI (urinary tract infection): Status: Acute Qualifiers: Hematuria presence: with hematuria Urinary tract infection type: site unspecified Qualified Code(s): N39.0 - Urinary tract infection, site not specified; R31.9 - Hematuria, unspecified (2) Hematuria: Status: Acute Qualifiers: Hematuria type: gross Qualified Code(s): R31.0 - Gross hematuria (3) T2DM (type 2 diabetes mellitus): Status: Acute (4) Uterine cancer: Status: Acute (5) Thrombocytopenia: Status: Acute (6) History of stroke: Status: Acute (7) DVT (deep venous thrombosis): Status: Acute Qualifiers: Affected thrombotic vein of extremity: femoral Chronicity: acute DVT location: lower extremity Laterality: right Qualified Code(s): I82.411 - Acute embolism and thrombosis of right femoral vein (8) S/P BKA (below knee amputation) bilateral: Status: Acute Narrative A/P Narrative: Assessment and Plans: 1. Gross hematuria: DDx: secondary to anticoagulant therapy Eliquis, side effect of chemoradiation therapy, malignancy Inpatient PCU Consult urology Dr. Hanks, recs. appreciated CT abdomen pelvis w/ w/o contrast to look for intraabdominal/pelvic pathologies for hematuria Serial H/H to monitor blood count and transfuse if it keeps dropping or <7.0 Hold Aspirin/Eliquis 2. UTI, bacterial vs fungal: Serial lactic acid 0.7 Blood culture, no growth to date Urine culture, no growth to date cbc w/ auto diff in the morning to trend WBC Rocephin Diflucan NS@100cc/hr 3. Thrombocytopenia: cbc w/ auto diff to trend plt count 4. T2DM: HgA1c Hold Metformin/Glipizide Lispro SSI AC HS Accu Check AC HS Hypoglycemia protocol Diabetic diet 5. h/o DVT: Hold Eliquis for concurrent gross hematuria 6. h/o stroke: Hold Aspirin for concurrent gross hematuria 7. h/o uterine cancer: Follow up with outpatient oncologist GI ppx: not currently indicated DVT ppx: pharmacological anticoagulation contraindicated; SCDs not possible due to BKA Code status: Full Prognosis: guarded Disposition: inpatient PCU; [facility] resident Time Spent With Patient Time: Total time spent is greater than 50% in coordination of care (as documented) at patient's floor/unit and/or counseling patient: Subsequent: Total time with patient: 35 - 49 minutes QUALITY VTE Deep Vein Thrombosis/Pulmonary Embolism Present on Admission: Yes
[2022-03-22] MEDS: FENOFIBRATE 43 MG CAPSULE PO SCH (09:33)
[2022-03-22] MEDS: busPIRone 5 MG TABLET PO SCH ×3 (09:33→19:58)
[2022-03-22] MEDS ORDERED: FLUCONAZOLE 150 MG TABLET PO SCH (10:00)
[2022-03-22] MEDS ORDERED: IOPAMIDOL 100 ML BOTTLE IV ONE (11:02)
--- NOTE | 2022-03-22 13:12 | Cat Scan Report ---
CLINICAL INFORMATION: Hematuria. History of hysterectomy for endometrial carcinoma COMPARISON: Abdomen and pelvic CTs 07/17/2020 and 09/22/2021 TECHNIQUE: 0.625 mm precontrast images were obtained from kidneys through bladder. 80 cc Isovue-370 were then injected intravenously, and 60 seconds and five minutes later, 0.625 mm helical slices were obtained from the mid heart through the subtrochanteric regions of the femurs. Following reconstruction, 2.5 mm sagittal, coronal and axial reformatted images were obtained through the entire abdomen. The exam was performed using radiation dose optimization techniques including, but not limited to, automated exposure control, adjustment of the mA and/or kV according to patient size and use of iterative reconstruction technique. FINDINGS: Lung bases show moderate region of patchy groundglass airspace disease in the posterior right lower lobe which is new from the comparison CT over six months ago and may represent acute infiltrate. There appear to be a few small emboli within the segmental branches to the right lower lobe pulmonary artery which are very poorly visualized. Scattered fibrosis seen throughout remainder of the left lower lobe right middle lobe. No nodules to suggest metastases appreciated. No effusions. The visualized heart is normal in size and configuration. Abdominal images show moderate fatty change within the liver which is stable. No hepatic metastases. The gallbladder is surgically absent. Common bile duct is mildly dilated, 7 mm, compatible post cholecystectomy state. The pancreas including the pancreatic duct and both adrenal glands are normal in size, configuration and attenuation without focal lesion. There is scattered (5-6) wedge-shaped low-attenuation lesions within the spleen which are new from the prior exams. They are suspicion for small splenic infarcts. These range up to 1.5 cm. The abdominal aorta is normal diameter riddled with fibrofatty calcific plaque. A 2.7 x 0.8 cm thrombus or embolus within the mid superior mesenteric artery. The celiac, both renal KEISHA and iliac arteries contain plaque but no occlusion or stenosis. A 5 x 1.5 cm wedge-shaped infarct seen superior pole the left kidney with a second 2.5 x 2 cm wedge-shaped infarct mid left kidney. These are new from the previous exam. No definite thrombus or emboli seen within the segmental arterial branches supplying these regions. The right kidney is unremarkable. There is no free air or free fluid. Large conglomerates of retroperitoneal adenopathy in the para-aortic and interaortocaval region show slight increase in size but all lymph nodes have developed interval necrosis implying response to treatment. There are no new regions of adenopathy appreciated Martin catheter is properly positioned urinary bladder. There is massive low attenuation urinary bladder wall thickening at a new finding. Few sigmoid diverticula appreciated, but no evidence of diverticulitis. The remainder of the large bowel, appendix region, small bowel and stomach are normal. Bone windows show no osseous abnormality IMPRESSION: 1. Moderate infarct superior pole left kidney and small infarct lateral mid left kidney. In addition, there are multiple (five- six) small infarcts scattered throughout the spleen. No thrombus or embolus identified within the segmental renal arteries supplying this regions of the kidney nor the splenic arterial branches. It is suspected that thrombus, originating from the heart or thoracic aorta, embolized to this branches. Consider transesophageal echocardiogram to evaluate for cardiac thrombus 2. 2.6 cm segmental embolus within the mid superior mesenteric artery. No evidence of bowel ischemia. 3. Interval necrosis in the conglomerate of retroperitoneal adenopathy in the periaortic and pericaval region since the comparison exam over six months ago. This would imply positive response to treatment. 4. Massive diffuse urinary bladder wall thickening which is low attenuation. May represent cystitis as either infectious or a side effect of chemotherapy 5. Moderate infiltrate posterior right lower lobe new from the previous exam. Possible small pulmonary emboli within the segmental right lower lobe branches Interpreted and Authenticated by: Elmer Moreau 03/22/22
--- NOTE | 2022-03-22 13:40 | Urology Consult Note ---
HPI Date of Consult Consult Date: 03/22/22 Primary Care Provider: Enma Garcia PA-C Consult Narrative Chief complaint: Gross hematuria History of present illness: Patient is a 61-year-old female resident had a local half-way who apparently presented last night to emergency room with complaints of vaginal bleeding. On exam she was found to have gross hematuria. Patient was admitted last night, catheter placed, catheter irrigated. Patient denies any abdominal, flank, pelvic pain. Patient denies any prior history of bleeding. Patient does have a history of what sounds like either cervical or endometrial cancer and is currently receiving radiation treatments. Urine has cleared overnight, nursing staff states that no blood in the catheter this morning or today. cc:: CC: Carlos Calero MD Constitutional Constitutional: Absent anorexia, frequent falls, night sweats or weakness EENT Eyes: Absent blind spots, change in vision or irritation Ears: Absent decreased hearing Nose, mouth and throat: Absent nasal discharge or sore throat Cardiovascular Cardiovascular: Absent chest pain or palpatations Respiratory Respiratory: Absent cough or chest congestion Gastrointestinal Gastrointestinal: Present as per HPI; Absent abdominal pain or nausea Genitourinary Genitourinary: Present as per HPI and hematuria; Absent flank pain Integumentary Integumentary: Absent erythema or rash Neurological Neurological: Absent headache(s) or syncope PFSH PFSH All Active Problems Fall (Acute) Hip pain (Acute) Contusion (Acute) Hip fracture, right (Acute) Colitis (Acute) Nausea & vomiting (Acute) DVT (deep venous thrombosis) (Acute) Hematuria (Acute) UTI (urinary tract infection) (Acute) T2DM (type 2 diabetes mellitus) (Acute) Uterine cancer (Acute) Thrombocytopenia (Acute) History of stroke (Acute) S/P BKA (below knee amputation) bilateral (Acute) Medical History Contusion Fall Hip fracture, right Hip pain Social History smoking status: Former smoker alcohol intake frequency: does not drink substance use type: does not use MEDS/ALLERGIES Home Medications and Allergies Home Medications Medication Instructions Recorded Confirmed Type empagliflozin 25 mg tablet 25 mg PO QDAY 03/08/20 03/21/22 History (Jardiance) apixaban 5 mg (74 tabs) tablets in 5 mg PO BID 03/21/22 03/21/22 History a dose pack buspirone 5 mg PO HS 03/21/22 03/21/22 History buspirone 5 mg tablet 10 mg PO BID 03/21/22 03/21/22 History dulaglutide 1.5 mg/0.5 mL 1.5 mg subcut ONCE 03/21/22 03/21/22 History subcutaneous pen injector (Trulicity) fenofibrate 160 mg tablet 160 mg PO QDAY 03/21/22 03/21/22 History fluconazole 150 mg tablet 150 mg PO Q3D 03/21/22 03/21/22 History ibuprofen 800 mg tablet 800 mg PO Q8H PRN Pain 03/21/22 03/21/22 History ondansetron HCl 4 mg tablet 4 mg PO Q6H PRN Nausea 03/21/22 03/21/22 History prochlorperazine maleate 10 mg 10 mg PO Q6H PRN Nausea 03/21/22 03/21/22 History tablet sodium chloride 0.65 % nasal spray 1 spray intranasal PRN PRN 03/21/22 03/22/22 History aerosol (Saline Nasal) Congestion Allergies Allergy/AdvReac Type Severity Reaction Status Date / Time codeine [CODEINE] AdvReac Intermediate SHORTNESS Verified 03/21/22 19:11 OF BREATH morphine AdvReac Mild Other Verified 03/21/22 21:17 Physical Examination Vital Signs Vital signs: Temp Pulse Resp BP Pulse Ox O2 Del Method 97.8 F 70 10 L 137/39 100 03/22/22 12:01 03/22/22 12:01 03/22/22 12:01 03/22/22 12:01 03/22/22 12:01 03/22/22 12:01 General physical appearance General physical exam: chronically ill; negative no pain Eyes Eye exam: PERRL ENT ENT exam: normal mucosa Head Head exam IM: Present atraumatic Neck Neck exam: no lymphadenopathy Respiratory Respiratory exam: normal respiratory effort Abdomen Abdomen: Present soft and non tender; Absent masses, guarding or rigid Genitourinary Genitourinary (Female): Present normal external genitalia Integumentary Integumentary: Present no rash Results Labs Result diagrams: 03/22/22 05:42 03/22/22 05:42 Labs: Abnormal lab results 03/21/22 03/21/22 03/22/22 Range/Units 12:30 18:56 05:42 RBC 3.23 L (3.59-5.38) M/mcL Hgb 8.7 L 9.1 L (11.2-15.7) g/dL Hct 27.3 L 29.7 L (34.1-44.9) % MCHC 30.6 L (31.0-36.0) g/dL RDW 14.6 H (11.5-14.5) % Plt Count 39 L* (140-440) K/mcL Immature Gran % (Auto) 0.6 H (0.0-0.5) % Neut % (Auto) 82.6 H (38.0-78.0) % Lymph % (Auto) 9.0 L (15.5-49.0) % Lymph # (Auto) 0.45 L (1.50-4.80) K/mcL Glucose (70-105) mg/dL Urine Appearance Turbid A (Clear) Urine Protein >=300 A (Negative) mg/dL Urine Glucose (UA) >=1000 A (Negative) mg/dL Urine Ketones Color interference A (Negative) mg/dL Urine Occult Blood Large A (Negative) gaston/mcL Urine Nitrate Color interference A (Negative) Urine Urobilinogen Color interference A mg/dL Ur Leukocyte Esterase Color interference A (Negative) /uL Urine RBC 152 H (0-3) /hpf Urine WBC > 182 H (0-4) /hpf Ur Squamous Epith Cells 18 H (0-4) /hpf Urine Bacteria Mod A (0) /hpf Urine Yeast (Budding) Many A (None) /hpf 03/22/22 Range/Units 05:42 RBC (3.59-5.38) M/mcL Hgb (11.2-15.7) g/dL Hct (34.1-44.9) % MCHC (31.0-36.0) g/dL RDW (11.5-14.5) % Plt Count (140-440) K/mcL Immature Gran % (Auto) (0.0-0.5) % Neut % (Auto) (38.0-78.0) % Lymph % (Auto) (15.5-49.0) % Lymph # (Auto) (1.50-4.80) K/mcL Glucose 131 H (70-105) mg/dL Urine Appearance (Clear) Urine Protein (Negative) mg/dL Urine Glucose (UA) (Negative) mg/dL Urine Ketones (Negative) mg/dL Urine Occult Blood (Negative) gaston/mcL Urine Nitrate (Negative) Urine Urobilinogen mg/dL Ur Leukocyte Esterase (Negative) /uL Urine RBC (0-3) /hpf Urine WBC (0-4) /hpf Ur Squamous Epith Cells (0-4) /hpf Urine Bacteria (0) /hpf Urine Yeast (Budding) (None) /hpf Diabetes panel 03/22/22 03/22/22 Range/Units 05:42 08:47 Sodium 137 (133-145) mmol/L Potassium 3.9 (3.3-5.1) mmol/L Chloride 105 (96-108) mmol/L Carbon Dioxide 24 (22-30) mmol/L BUN 13 (8-23) mg/dL Creatinine 0.8 (0.6-1.1) mg/dL Glucose 131 H (70-105) mg/dL Hemoglobin A1c TNP 6.0 Calcium 8.6 (8.6-10.4) mg/dL AST 24 (<32) U/L ALT 8 (<40) U/L Alkaline Phosphatase 52 (39-117) U/L Total Protein 6.1 (5.9-8.4) gm/dL Albumin 3.5 (3.2-5.2) gm/dL Calcium panel 03/22/22 Range/Units 05:42 Calcium 8.6 (8.6-10.4) mg/dL Albumin 3.5 (3.2-5.2) gm/dL Pituitary panel 03/22/22 Range/Units 05:42 Sodium 137 (133-145) mmol/L Potassium 3.9 (3.3-5.1) mmol/L Chloride 105 (96-108) mmol/L Carbon Dioxide 24 (22-30) mmol/L BUN 13 (8-23) mg/dL Creatinine 0.8 (0.6-1.1) mg/dL Glucose 131 H (70-105) mg/dL Calcium 8.6 (8.6-10.4) mg/dL Adrenal panel 03/22/22 Range/Units 05:42 Sodium 137 (133-145) mmol/L Potassium 3.9 (3.3-5.1) mmol/L Chloride 105 (96-108) mmol/L Carbon Dioxide 24 (22-30) mmol/L BUN 13 (8-23) mg/dL Creatinine 0.8 (0.6-1.1) mg/dL Glucose 131 H (70-105) mg/dL Calcium 8.6 (8.6-10.4) mg/dL Total Bilirubin 0.2 (0.1-1.0) mg/dL AST 24 (<32) U/L ALT 8 (<40) U/L Alkaline Phosphatase 52 (39-117) U/L Total Protein 6.1 (5.9-8.4) gm/dL Albumin 3.5 (3.2-5.2) gm/dL All other labs normal. Imaging CT scan - abdomen: report reviewed and image reviewed (Multiple wedge-shaped areas of decreased enhancement of the left kidney) A/P Assessment and plan (1) Hematuria: Status: Acute Qualifiers: Hematuria type: gross Qualified Code(s): R31.0 - Gross hematuria Narrative A/P Narrative: 61-year-old female with a history of gross hematuria now resolved. CT scan shows at least 2 areas of possible infarct of the left kidney. Cystoscopy reveals no masses in the bladder there is some mild erythema consistent with po ssible radiation cystitis. I am not certain as to the cause of the possible infarct of the left kidney. Treatment would normally consist of anticoagulation. Bleeding has currently stopped. Time Spent With Patient Time: Total time spent is greater than 50% in coordination of care (as documented) at patient's floor/unit and/or counseling patient:
[2022-03-22] MEDS: LOPERAMIDE 2 MG CAPSULE PO PRN ×2 (19:19→21:22)
[2022-03-22] MEDS: PHENAZOPYRIDINE 200 MG TABLET PO PRN ×3 (20:14→23:11)
[2022-03-22] MEDS: ACETAMINOPHEN 325 MG TABLET PO PRN (21:22)
[2022-03-22] MEDS: ONDANSETRON 4 MG/2 ML VIAL IV PRN (21:44)
[2022-03-22] MEDS: LORazepam 0.5 MG TABLET PO PRN (23:06)
[2022-03-22] MEDS: IBUPROFEN 800 MG TABLET PO PRN (23:11)
[2022-03-23] MEDS: PHENAZOPYRIDINE 200 MG TABLET PO PRN ×2 (01:06→21:45)
[2022-03-23] MEDS: ACETAMINOPHEN 325 MG TABLET PO PRN (02:55)
[2022-03-23] MEDS: LORazepam 0.5 MG TABLET PO PRN (02:55)
[2022-03-23] MEDS: ONDANSETRON 4 MG/2 ML VIAL IV PRN (03:30)
[2022-03-23] MEDS ORDERED: METOCLOPRAMIDE 10 MG/2 ML VIAL ONE (05:29)
[2022-03-23] MEDS: 0.9 % SODIUM CHLORIDE 10 ML SYRINGE IV SCH (05:37)
[2022-03-23] MEDS ORDERED: METOCLOPRAMIDE 10 MG/2 ML VIAL IV PRN ×2 (05:44→06:30)
[2022-03-23] MEDS ORDERED: METOCLOPRAMIDE 10 MG/2 ML VIAL IV SCH (06:00)
[2022-03-23] MEDS ORDERED: LIDOCAINE 2% URO-JET 10 ML JEL.PF.APP UR ONE (06:58)
[2022-03-23 07:18] LABS: Basophils # (Auto) 0.01 K/mcL (0.00-0.30); Basophils % (Auto) 0.2 % (0.0-2.0); Eosinophils % (Auto) 1.5 % (0.0-7.0); Hematocrit 26.6 % (34.1-44.9); Hemoglobin 8.2 g/dL (11.2-15.7); Lymphocytes # (Auto) 0.42 K/mcL (1.50-4.80); Lymphocytes % (Auto) 6.5 % (15.5-49.0); Mean Cell Volume 92.4 fL (80.0-100.0); Mean Corpuscular HGB Conc 30.8 g/dL (31.0-36.0); Monocytes % (Auto) 4.6 % (1.0-12.0); Neutrophils % (Auto) 86.4 % (38.0-78.0); Platelet Count 36 K/mcL (140-440); RBC 2.88 M/mcL (3.59-5.38); Red Cell Distribution Width 14.8 % (11.5-14.5); WBC 6.5 K/mcL (4.5-11.0)
[2022-03-23 07:29] LABS: ALT/SGPT 8 U/L (<40); AST/SGOT 17 U/L (<32); Albumin 3.2 gm/dL (3.2-5.2); Albumin/Globulin Ratio 1.4 (1.0-2.3); Alkaline Phosphatase 48 U/L (39-117); Bilirubin,Total 0.2 mg/dL (0.1-1.0); Blood Urea Nitrogen 12 mg/dL (8-23); Calcium 8.2 mg/dL (8.6-10.4); Carbon Dioxide 21 mmol/L (22-30); Chloride 107 mmol/L (96-108); Globulin 2.3 gm/dL (2.2-3.7); Glomerular Filtration Rate 93; Glucose 151 mg/dL (70-105)
[2022-03-23] MEDS: DOCUSATE SODIUM 100 MG CAPSULE PO SCH ×2 (08:00→21:37)
[2022-03-23] MEDS: FENOFIBRATE 43 MG CAPSULE PO SCH (09:02)
[2022-03-23] MEDS: busPIRone 5 MG TABLET PO SCH ×3 (09:02→20:45)
[2022-03-23] MEDS: INSULIN LISPRO 1 UNIT/0.01 ML UNIT SQ SCH ×4 (09:02→20:45)
[2022-03-23] MEDS: 0.9 % SODIUM CHLORIDE 1,000 ML IV SCH (09:03)
[2022-03-23] MEDS: cefTRIAXone 1 GM VIAL IV SCH (09:27)
[2022-03-23] MEDS: FLUCONAZOLE 400 MG/200 ML BAG IV SCH (09:27)
--- NOTE | 2022-03-23 11:29 | Internal Med Progress Note ---
SUBJECTIVE Subjective Patient information: Note initiated : 03/23/22 at 11:24 am Service Date, if different from initiated Date: [] Patient: Lupe Sanchez a 61 y/o F admitted on 03/21/22 for vaginal bleeding since last night; hematuria. Chief Complaint: [] Interval history: Ms. Sanchez is a 61 year old F uterine cancer, type 2 diabetes mellitus, DVT on Eliquis, frequent UTI, bilateral BKA, halfway resident, presenting with gross hematuria. The following history is limited by patient's clinical situations. Daughter is at the bedside but she does not know much about why or how the patient was being sent by the halfway to our ED. It was reported that the halfway staff found the patient have gross hematuria and is called EMS to send the patient to our ED for further evaluations. Gross hematuria continue to be observed in the ED. hemoglobin and hematocrit 9.4 and 29.3 today, as compared to baseline of 12.6 and 39.2. Vital signs significant with soft blood pressure latest set of blood pressure 77/62mmHg. UA suggesting the presence of bacterial/fungal UTI. ED doctor called also hospital urology for consultations and they recommend the patient to stay in our facility and consult our own urology tomorrow when it becomes available. 03/22: Gross hematuria resolved. H&H stable at 9.1/29.7. Patient denies any chest pain shortness of breath or palpitations. She denies any abdominal pain or pelvic pain. Afebrile overnight. Blood and urine culture no growth to date. CT abdomen pelvis w/ w/o contrast to look for intraabdominal/pelvic pathologies for hematuria. Consulting urologist Dr. Hanks for hematuria, recs. appreciated. Continue to hold Aspirin/Eliquis. Continue IV fluid NS@100cc/hr, Rocephin, and Diflucan for UTI. 03/23: CT abdomen pelvis showed multiple infarcts in left kidney and spleen. TTE showed 2.3X1.0cm echogenic structure extending from LVOT toward anterior leaflet. Dr. Hanks saw patient yesterday, performed cystoscopy revealed no masses in the bladder there was some mild erythema consistent with possible radiation cystitis. He pulled her Martin catheter. No more reported gross hematuria overnight. Consult cardiology regarding further study and recs. for the nature and manage ment of the cardiac mass. Continue to hold Aspirin/Eliquis. Continue Rocephin, and Diflucan for UTI. Saline lock. Downgrade to med surg. Constitutional Vitals: Vital Signs Temp Pulse Resp BP Pulse Ox O2 Del Method 36.4 C 69 13 128/42 96 03/23/22 08:00 03/23/22 08:00 03/23/22 08:00 03/23/22 10:00 03/23/22 08:00 03/23/22 10:00 Period Temp Pulse Resp BP Sys/Huertas Pulse Ox O2 Del Method O2 Flow Rate Last 24 Hr 36.2 C-36.6 C 68-116 10-27 103-147/34-73 93-100 BiPAP-Room Air Intake and Output 03/22/22 03/23/22 03/23/22 19:59 03:59 11:59 Intake Total 1636 2645 1147 Output Total 750 425 951 Balance 886 2220 196 Weight 49.924 kg Intake & Output: Intake & Output 03/22/22 03/23/22 03/23/22 19:59 03:59 11:59 Intake Total 1636 2645 1147 Output Total 750 425 951 Balance 886 2220 196 Weight 49.924 kg Intake: IV 1000 815 907 Sodium Chloride 0.9% 1,000 ml @ 1000 815 907 100 mls/hr IV .Q10H [facility] Rx#: [id number] Oral 636 1830 240 Output: Urine Catheter Amount 550 Void Amount 200 425 950 # of times incontinent of urine 1 Other: Meal Breakfast Percent of Meal Consumed 100% Urine Appearance Clear Clear Clear Urine Color Yellow Speedwell Speedwell Urine Odor Normal Normal Stool Size Copious Smear Stool Color Brown Brown Stool Consistency Soft Loose Watery Loose # Bowel Movements 1 1 # of times incontinent of 1 Bowels Head Head exam: Present atraumatic and normal inspection Eye Eye exam: Present normal appearance ENT ENT exam: Present mucous membranes moist, normal exam and normal external ear exam Neck Neck exam: Present normal inspection Respiratory Respiratory exam: Present normal respiratory exam Cardiovascular Cardiovascular exam: Present normal rate and rhythm and systolic murmur GI/Abdominal GI/Abdominal exam: Present normal bowel sounds Extremities Exam Extremities exam: Absent full ROM or normal inspection Additional comments: Bilateral BKA Back Exam Back exam: Present normal inspection Neurological Exam Neurological exam: Present alert and oriented X3 Skin Skin exam: Present intact and warm OBJ DATA Labs CBC & Chem 7: 03/23/22 06:20 03/23/22 06:20 Labs: Abnormal Lab Results 03/23/22 03/23/22 03/22/22 06:20 06:20 05:42 RBC 2.88 L Hgb 8.2 L Hct 26.6 L POC Hct MCHC 30.8 L RDW 14.8 H Plt Count 36 L* Immature Gran % (Auto) 0.8 H Neut % (Auto) 86.4 H Lymph % (Auto) 6.5 L Lymph # (Auto) 0.42 L Immature Gran # Carbon Dioxide 21 L Glucose 151 H 131 H POC Glucose Calcium 8.2 L POC WB Ioniz Calcium Total Protein 5.5 L Urine Appearance Urine Protein Urine Glucose (UA) Urine Ketones Urine Occult Blood Urine Nitrate Urine Urobilinogen Ur Leukocyte Esterase Urine RBC Urine WBC Ur Squamous Epith Cells Urine Bacteria Urine Yeast (Budding) 03/22/22 03/21/22 03/21/22 05:42 18:56 12:30 RBC 3.23 L Hgb 9.1 L 8.7 L Hct 29.7 L 27.3 L POC Hct MCHC 30.6 L RDW 14.6 H Plt Count 39 L* Immature Gran % (Auto) 0.6 H Neut % (Auto) 82.6 H Lymph % (Auto) 9.0 L Lymph # (Auto) 0.45 L Immature Gran # Carbon Dioxide Glucose POC Glucose Calcium POC WB Ioniz Calcium Total Protein Urine Appearance Turbid A Urine Protein >=300 A Urine Glucose (UA) >=1000 A Urine Ketones Color interference A Urine Occult Blood Large A Urine Nitrate Color interference A Urine Urobilinogen Color interference A Ur Leukocyte Esterase Color interference A Urine RBC 152 H Urine WBC > 182 H Ur Squamous Epith Cells 18 H Urine Bacteria Mod A Urine Yeast (Budding) Many A 03/21/22 03/21/22 12:17 12:11 RBC 3.33 L Hgb 9.4 L Hct 29.3 L POC Hct 30.0 L MCHC RDW Plt Count 39 L* Immature Gran % (Auto) 0.9 H Neut % (Auto) 87.3 H Lymph % (Auto) 5.8 L Lymph # (Auto) 0.47 L Immature Gran # 0.07 H Carbon Dioxide Glucose POC Glucose 179 H Calcium POC WB Ioniz Calcium 1.12 L Total Protein Urine Appearance Urine Protein Urine Glucose (UA) Urine Ketones Urine Occult Blood Urine Nitrate Urine Urobilinogen Ur Leukocyte Esterase Urine RBC Urine WBC Ur Squamous Epith Cells Urine Bacteria Urine Yeast (Budding) Meds: Medications Acetaminophen (Acetaminophen 325 Mg Tablet) 650 mg PO Q6HP PRN; Protocol PRN Reason: Per Pain Protocol/Fever > 101 Last Admin: 03/23/22 02:55 Dose: 650 mg Albuterol/Ipratropium (Ipratropium/Albuterol 3 Ml Ampul.Neb) 3 ml NEB Q4HRT PRN PRN Reason: Wheezing Buspirone HCl (Buspirone 5 Mg Tablet) 5 mg PO HS [facility] Last Admin: 03/22/22 19:58 Dose: 5 mg Buspirone HCl (Buspirone 5 Mg Tablet) 10 mg PO BID@0800,1500 [facility] Last Admin: 03/23/22 09:02 Dose: 10 mg Ceftriaxone Sodium (Ceftriaxone 1 Gm Vial) 1 gm IV Q24H [facility] Last Admin: 03/23/22 09:27 Dose: 1 gm Dextrose (Dextrose 50% 50 Ml Vial) 0 ml IV UD PRN PRN Reason: Per Sliding Scale Diagnostic Test (Pha) (Accu-Chek 1 Each Strip) 1 each FS ACHS [facility] Last Admin: 03/23/22 07:59 Dose: 1 each Docusate Sodium (Docusate Sodium 100 Mg Capsule) 100 mg PO BID [facility] Last Admin: 03/23/22 08:00 Dose: Not Given Fenofibrate (Fenofibrate 43 Mg Capsule) 129 mg PO DAILY [facility] Last Admin: 03/23/22 09:02 Dose: 129 mg Fluconazole (Fluconazole 100 Mg Tablet) 400 mg PO DAILY [facility] Glucose (Dextrose 31 Gm Oral.Susp) 15 gm PO PRN PRN PRN Reason: Hypoglycemia Heparin Sodium (Porcine) (Heparin Flush 10 Units/Ml 5 Ml Syringe) 5 ml IV Q12 [facility] Last Admin: 03/23/22 08:00 Dose: Not Given Sodium Chloride (Sodium Chloride 0.9%) 1,000 mls @ 100 mls/hr IV .Q10H [facility] Last Admin: 03/23/22 09:03 Dose: 100 mls/hr Ibuprofen (Ibuprofen 800 Mg Tablet) 800 mg PO Q8HP PRN; Protocol PRN Reason: Pain Last Admin: 03/22/22 23:11 Dose: 800 mg Insulin Human Lispro (Insulin Lispro 1 Unit/0.01 Ml Unit) 0 unit SQ ACHS [facility]; Protocol Last Admin: 03/23/22 09:02 Dose: 1 unit Lactulose (Lactulose 20 Gm/30 Ml Oral.Lala) 10 gm PO DAILYP PRN PRN Reason: Constipation Loperamide HCl (Loperamide 2 Mg Capsule) 2 mg PO Q2HP PRN PRN Reason: Diarrhea Last Admin: 03/22/22 21:22 Dose: 2 mg Lorazepam (Lorazepam 0.5 Mg Tablet) 0.5 mg PO Q4-6HP PRN PRN Reason: ANXIETY/SEDATION Last Admin: 03/23/22 02:55 Dose: 0.5 mg Metoclopramide HCl (Metoclopramide 10 Mg/2 Ml Vial) 10 mg IV Q6HP PRN PRN Reason: Nausea And Vomiting Ondansetron HCl (Ondansetron 4 Mg/2 Ml Vial) 4 mg IV Q4HP PRN; Protocol PRN Reason: Nausea And Vomiting Last Admin: 03/23/22 03:30 Dose: 4 mg Phenazopyridine HCl (Phenazopyridine 200 Mg Tablet) 200 mg PO TIDP PRN PRN Reason: PAINFUL URINATION Last Admin: 03/23/22 01:06 Dose: 200 mg Senna (Sennosides 1 Tablet) 2 tab PO HSP PRN PRN Reason: Constipation Sodium Chloride (0.9 % Sodium Chloride 10 Ml Syringe) 10 ml IV Q8 [facility] Last Admin: 03/23/22 05:37 Dose: 10 ml Sodium Chloride (0.9 % Sodium Chloride 10 Ml Syringe) 10 ml IV UD PRN PRN Reason: FLUSH Sodium Chloride (Sodium Chloride Nasal 1 [place] Bottle) 1 spray SJ DAILYP PRN PRN Reason: Congestion A/P Assessment and plan (1) UTI (urinary tract infection): Status: Acute Qualifiers: Hematuria presence: with hematuria Urinary tract infection type: site unspecified Qualified Code(s): N39.0 - Urinary tract infection, site not specified; R31.9 - Hematuria, unspecified (2) Hematuria: Status: Acute Qualifiers: Hematuria type: gross Qualified Code(s): R31.0 - Gross hematuria (3) T2DM (type 2 diabetes mellitus): Status: Acute (4) Uterine cancer: Status: Acute (5) Thrombocytopenia: Status: Acute (6) History of stroke: Status: Acute (7) DVT (deep venous thrombosis): Status: Acute Qualifiers: Affected thrombotic vein of extremity: femoral Chronicity: acute DVT location: lower extremity Laterality: right Qualified Code(s): I82.411 - Acute embolism and thrombosis of right femoral vein (8) S/P BKA (below knee amputation) bilateral: Status: Acute (9) Endocardial thrombosis: Status: Acute Narrative A/P Narrative: Assessment and Plans: 1. Gross hematuria: DDx: secondary to anticoagulant therapy Eliquis, side effect of chemoradiation therapy, malignancy Inpatient med surg Dr. Hanks saw patient yesterday, performed cystoscopy revealed no masses in the bladder there was some mild erythema consistent with possible radiation cystitis. He pulled her Martin catheter. No more reported gross hematuria overnight. CT abdomen pelvis showed multiple infarcts in left kidney and spleen Serial H/H to monitor blood count and transfuse if it keeps dropping or <7.0 Hold Aspirin/Eliquis 2. UTI, bacterial vs fungal: Serial lactic acid 0.7 Blood culture, no growth to date Urine culture, no growth to date cbc w/ auto diff in the morning to trend WBC Rocephin Diflucan Saline lock 3. Thrombocytopenia: cbc w/ auto diff to trend plt count 4. T2DM: HgA1c Hold Metformin/Glipizide Lispro SSI AC HS Accu Check AC HS Hypoglycemia protocol Diabetic diet 5. h/o DVT: Hold Eliquis for concurrent gross hematuria 6. h/o stroke: Hold Aspirin for concurrent gross hematuria 7. h/o uterine cancer: Follow up with outpatient oncologist 8. Endocardial mass: TTE showed 2.3X1.0cm echogenic structure extending from LVOT toward anterior leaflet Consult cardiology regarding further study and recs. for the nature and management of the cardiac mass GI ppx: not currently indicated DVT ppx: pharmacological anticoagulation contraindicated; SCDs not possible due to BKA Code status: Full Prognosis: guarded Disposition: inpatient med surg; [place] resident Time Spent With Patient Time: Total time spent is greater than 50% in coordination of care (as documented) at patient's floor/unit and/or counseling patient: Subsequent: Total time with patient: 35 - 49 minutes QUALITY VTE Deep Vein Thrombosis/Pulmonary Embolism Present on Admission: Yes
--- NOTE | 2022-03-23 16:14 | EKG ---
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 Measurements Intervals [place] Rate: 72 P: 59 AL: 168 QRS: 45 QRSD: 82 T: 70 QT: 430 QTc: 473 Interpretive Statements Sinus rhythm Borderline T wave abnormalities Electronically Signed On 03-23-2022 16:14:30 PST by Elmer Frye M.D. /[id number]
[2022-03-23 20:02] LABS: INR 1.2 (0.9-1.1); Prothrombin Time 15.2 sec (11.9-14.5)
[2022-03-23] MEDS: HEPARIN SOD,PORK IN 0.45% NACL 25,000 UNIT in PREMIX 1 BAG IV SCH (20:20)
[2022-03-24] MEDS: ACETAMINOPHEN 325 MG TABLET PO PRN (01:55)
[2022-03-24] MEDS: PHENAZOPYRIDINE 200 MG TABLET PO PRN (02:49)
[2022-03-24 03:29] LABS: INR 1.1 (0.9-1.1)
[2022-03-24 03:51] LABS: Partial Thromboplastin Time 102.5 sec (20.0-37.0)
[2022-03-24] MEDS: LORazepam 0.5 MG TABLET PO PRN (04:47)
[2022-03-24] MEDS: DOCUSATE SODIUM 100 MG CAPSULE PO SCH ×2 (07:34→21:18)
[2022-03-24] MEDS ORDERED: NITROGLYCERIN 0.4 MG TAB.SUBL SL PRN (07:45)
[2022-03-24] MEDS ORDERED: morphine 2 MG/ML VIAL IV PRN (07:45)
--- NOTE | 2022-03-24 07:53 | Internal Med Progress Note ---
SUBJECTIVE Subjective Patient information: Note initiated : 03/24/22 at 7:46 am Service Date, if different from initiated Date: [] Patient: Luep Sanchez a 61 y/o F admitted on 03/21/22 for vaginal bleeding since last night; hematuria. Chief Complaint: [] Interval history: Spoke with cardiology team from [facility] in [facility]. Daniel is a 61 year old F uterine cancer, type 2 diabetes mellitus, DVT on Eliquis, frequent UTI, bilateral BKA, [facility] resident, presenting with gross hematuria. The following history is limited by patient's clinical situations. Daughter is at the bedside but she does not know much about why or how the patient was being sent by the fdc to our ED. It was reported that the [facility] staff found the patient have gross hematuria and is called EMS to send the patient to our ED for further evaluations. Gross hematuria continue to be observed in the ED. hemoglobin and hematocrit 9.4 and 29.3 today, as compared to baseline of 12.6 and 39.2. Vital signs significant with soft blood pressure latest set of blood pressure 77/62mmHg. UA suggesting the presence of bacterial/fungal UTI. ED doctor called also hospital urology for consultations and they recommend the patient to stay in our facility and consult our own urology tomorrow when it becomes available. 03/22: Gross hematuria resolved. H&H stable at 9.1/29.7. Patient denies any chest pain shortness of breath or palpitations. She denies any abdominal pain or pelvic pain. Afebrile overnight. Blood and urine culture no growth to date. CT abdomen pelvis w/ w/o contrast to look for intraabdominal/pelvic pathologies for hematuria. Consulting urologist Dr. Hanks for hematuria, recs. appreciated. Continue to hold Aspirin/Eliquis. Continue IV fluid NS@100cc/hr, Rocephin, and Diflucan for UTI. 03/23: CT abdomen pelvis showed multiple infarcts in left kidney and spleen. TTE showed 2.3X1.0cm echogenic structure extending from LVOT toward anterior leaflet. Dr. Hanks saw patient yesterday, performed cystoscopy revealed no masses in the bladder there was some mild erythema consistent with possible radiation cystitis. He pulled her Martin catheter. No more reported gross hematuria overnight. Consult cardiology regarding further study and recs. for the nature and management of the cardiac mass. Continue to hold Aspirin/Eliquis. Continue Rocephin, and Diflucan for UTI. Saline lock. Downgrade to med surg. 03/24: I spoke with the cardiology team from [facility] in [place] and they accepted the patient is pending bed availability. They recommend starting the patient on heparin drip according to pulmonary embolism protocol, currently running at 1000unit/h. No more reported gross hematuria. All cultures no growth to date. Patient is complaining of substernal chest pain. Pending transfer to [facility] in [place]. Continue heparin drip according to PE protocol. Twelve-lead EKG and serial troponin to rule out ACS. Nitroglycerin and morphine as needed for chest pain symptoms control. Continue Rocephin and Diflucan for urinary tract infections. Constitutional Vitals: Vital Signs Temp Pulse Resp BP Pulse Ox O2 Del Method 36.4 C 74 16 145/57 98 03/24/22 04:13 03/23/22 19:26 03/24/22 05:01 03/24/22 04:13 03/23/22 20:00 03/23/22 23:12 Period Temp Pulse Resp BP Sys/Huertas Pulse Ox O2 Del Method O2 Flow Rate Last 24 Hr 36.1 C-36.8 C 69-78 12-21 121-145/38-57 96-100 BiPAP-Room Air Intake and Output 03/23/22 03/24/22 03/24/22 19:59 03:59 11:59 Intake Total 2140 1200 163 Output Total 675 750 202 Balance 1465 450 -39 Weight 49.952 kg Intake & Output: Intake & Output 03/23/22 03/24/22 03/24/22 19:59 03:59 11:59 Intake Total 2140 1200 163 Output Total 675 750 202 Balance 1465 450 -39 Weight 49.952 kg Intake: Nourishment/Supplement quantity 240 (ml) IV 1000 163 Sodium Chloride 0.9% 1,000 ml @ 1000 100 mls/hr IV .Q10H [facility] Rx#: [id number] Heparin/0.45%Ns 25,000 Unit In 163 Premix 1 Bag @ 1,000 UNIT/HR 20 mls/hr IV .Q24H [facility] Rx#: [id number] Oral 900 1200 Output: Void Amount 675 750 200 # of times incontinent of urine 2 Other: Meal Dinner Percent of Meal Consumed 100% Feeding Ability Assist with Tray Set Up Nourishment/Supplement name Ensure Urine Appearance Clear Clear Clear Urine Color [place] Urine Odor Normal Head Head exam: Present atraumatic and normal inspection Eye Eye exam: Present normal appearance ENT ENT exam: Present mucous membranes moist, normal exam and normal external ear exam Neck Neck exam: Present normal inspection Respiratory Respiratory exam: Present normal respiratory exam Cardiovascular Cardiovascular exam: Present normal rate and rhythm Additional comments: Right chest port-a-cath GI/Abdominal GI/Abdominal exam: Present normal bowel sounds Extremities Exam Extremities exam: Absent normal inspection Additional comments: bilateral BKA Back Exam Back exam: Present normal inspection Neurological Exam Neurological exam: Present alert and oriented X3 Skin Skin exam: Present intact and warm OBJ DATA Labs CBC & Chem 7: 03/23/22 06:20 03/23/22 06:20 Labs: Abnormal Lab Results 03/24/22 03/23/22 03/23/22 02:30 19:14 13:10 RBC Hgb Hct POC Hct MCHC RDW Plt Count Immature Gran % (Auto) Neut % (Auto) Lymph % (Auto) Lymph # (Auto) Immature Gran # PT 15.0 H 15.2 H INR 1.2 H APTT 102.5 H Carbon Dioxide Glucose POC Glucose Calcium POC WB Ioniz Calcium C-Reactive Protein 3.70 H Total Protein Urine Appearance Urine Protein Urine Glucose (UA) Urine Ketones Urine Occult Blood Urine Nitrate Urine Urobilinogen Ur Leukocyte Esterase Urine RBC Urine WBC Ur Squamous Epith Cells Urine Bacteria Urine Yeast (Budding) 03/23/22 03/23/22 03/22/22 06:20 06:20 05:42 RBC 2.88 L Hgb 8.2 L Hct 26.6 L POC Hct MCHC 30.8 L RDW 14.8 H Plt Count 36 L* Immature Gran % (Auto) 0.8 H Neut % (Auto) 86.4 H Lymph % (Auto) 6.5 L Lymph # (Auto) 0.42 L Immature Gran # PT INR APTT Carbon Dioxide 21 L Glucose 151 H 131 H POC Glucose Calcium 8.2 L POC WB Ioniz Calcium C-Reactive Protein Total Protein 5.5 L Urine Appearance Urine Protein Urine Glucose (UA) Urine Ketones Urine Occult Blood Urine Nitrate Urine Urobilinogen Ur Leukocyte Esterase Urine RBC Urine WBC Ur Squamous Epith Cells Urine Bacteria Urine Yeast (Budding) 03/22/22 03/21/22 03/21/22 05:42 18:56 12:30 RBC 3.23 L Hgb 9.1 L 8.7 L Hct 29.7 L 27.3 L POC Hct MCHC 30.6 L RDW 14.6 H Plt Count 39 L* Immature Gran % (Auto) 0.6 H Neut % (Auto) 82.6 H Lymph % (Auto) 9.0 L Lymph # (Auto) 0.45 L Immature Gran # PT INR APTT Carbon Dioxide Glucose POC Glucose Calcium POC WB Ioniz Calcium C-Reactive Protein Total Protein Urine Appearance Turbid A Urine Protein >=300 A Urine Glucose (UA) >=1000 A Urine Ketones Color interference A Urine Occult Blood Large A Urine Nitrate Color interference A Urine Urobilinogen Color interference A Ur Leukocyte Esterase Color interference A Urine RBC 152 H Urine WBC > 182 H Ur Squamous Epith Cells 18 H Urine Bacteria Mod A Urine Yeast (Budding) Many A 03/21/22 03/21/22 12:17 12:11 RBC 3.33 L Hgb 9.4 L Hct 29.3 L POC Hct 30.0 L MCHC RDW Plt Count 39 L* Immature Gran % (Auto) 0.9 H Neut % (Auto) 87.3 H Lymph % (Auto) 5.8 L Lymph # (Auto) 0.47 L Immature Gran # 0.07 H PT INR APTT Carbon Dioxide Glucose POC Glucose 179 H Calcium POC WB Ioniz Calcium 1.12 L C-Reactive Protein Total Protein Urine Appearance Urine Protein Urine Glucose (UA) Urine Ketones Urine Occult Blood Urine Nitrate Urine Urobilinogen Ur Leukocyte Esterase Urine RBC Urine WBC Ur Squamous Epith Cells Urine Bacteria Urine Yeast (Budding) Meds: Medications Acetaminophen (Acetaminophen 325 Mg Tablet) 650 mg PO Q6HP PRN; Protocol PRN Reason: Per Pain Protocol/Fever > 101 Last Admin: 03/24/22 01:55 Dose: 650 mg Albuterol/Ipratropium (Ipratropium/Albuterol 3 Ml Ampul.Neb) 3 ml NEB Q4HRT PRN PRN Reason: Wheezing Buspirone HCl (Buspirone 5 Mg Tablet) 5 mg PO HS [facility] Last Admin: 03/23/22 20:45 Dose: 5 mg Buspirone HCl (Buspirone 5 Mg Tablet) 10 mg PO BID@0800,1500 [facility] Last Admin: 03/23/22 16:44 Dose: 10 mg Ceftriaxone Sodium (Ceftriaxone 1 Gm Vial) 1 gm IV Q24H [facility] Last Admin: 03/23/22 09:27 Dose: 1 gm Dextrose (Dextrose 50% 50 Ml Vial) 0 ml IV UD PRN PRN Reason: Per Sliding Scale Diagnostic Test (Pha) (Accu-Chek 1 Each Strip) 1 each FS ACHS [facility] Last Admin: 03/23/22 20:45 Dose: 1 each Docusate Sodium (Docusate Sodium 100 Mg Capsule) 100 mg PO BID [facility] Last Admin: 03/24/22 07:34 Dose: Not Given Fenofibrate (Fenofibrate 43 Mg Capsule) 129 mg PO DAILY [facility] Last Admin: 03/23/22 09:02 Dose: 129 mg Fluconazole (Fluconazole 100 Mg Tablet) 400 mg PO DAILY [facility] Glucose (Dextrose 31 Gm Oral.Susp) 15 gm PO PRN PRN PRN Reason: Hypoglycemia Heparin Sodium (Porcine) (Heparin Flush 10 Units/Ml 5 Ml Syringe) 5 ml IV Q12 [facility] Last Admin: 03/23/22 19:21 Dose: 5 ml Heparin Sodium/Sodium Chloride (25,000 unit/ Premix) 500 mls @ 20 mls/hr IV .Q24H [facility]; Protocol Last Titration: 03/24/22 04:30 Dose: 901.5 unit/hr, 18.03 mls/hr Ibuprofen (Ibuprofen 800 Mg Tablet) 800 mg PO Q8HP PRN; Protocol PRN Reason: Pain Last Admin: 03/22/22 23:11 Dose: 800 mg Insulin Human Lispro (Insulin Lispro 1 Unit/0.01 Ml Unit) 0 unit [facility]Q [facility]; Protocol Last Admin: 03/23/22 20:45 Dose: 3 unit Lactulose (Lactulose 20 Gm/30 Ml Oral.Lala) 10 gm PO DAILYP PRN PRN Reason: Constipation Loperamide HCl (Loperamide 2 Mg Capsule) 2 mg PO Q2HP PRN PRN Reason: Diarrhea Last Admin: 03/22/22 21:22 Dose: 2 mg Lorazepam (Lorazepam 0.5 Mg Tablet) 0.5 mg PO Q4-6HP PRN PRN Reason: ANXIETY/SEDATION Last Admin: 03/24/22 04:47 Dose: 0.5 mg Metoclopramide HCl (Metoclopramide 10 Mg/2 Ml Vial) 10 mg IV Q6HP PRN PRN Reason: Nausea And Vomiting Ondansetron HCl (Ondansetron 4 Mg/2 Ml Vial) 4 mg IV Q4HP PRN; Protocol PRN Reason: Nausea And Vomiting Last Admin: 03/23/22 03:30 Dose: 4 mg Phenazopyridine HCl (Phenazopyridine 200 Mg Tablet) 200 mg PO TIDP PRN PRN Reason: PAINFUL URINATION Last Admin: 03/24/22 02:49 Dose: 200 mg Senna (Sennosides 1 Tablet) 2 tab PO HSP PRN PRN Reason: Constipation Sodium Chloride (0.9 % Sodium Chloride 10 Ml Syringe) 10 ml IV UD PRN PRN Reason: FLUSH Sodium Chloride (Sodium Chloride Nasal 1 [place] Bottle) 1 spray SJ DAILYP PRN PRN Reason: Congestion A/P Assessment and plan (1) UTI (urinary tract infection): Status: Acute Qualifiers: Hematuria presence: with hematuria Urinary tract infection type: site unspecified Qualified Code(s): N39.0 - Urinary tract infection, site not specified; R31.9 - Hematuria, unspecified (2) Hematuria: Status: Acute Qualifiers: Hematuria type: gross Qualified Code(s): R31.0 - Gross hematuria (3) T2DM (type 2 diabetes mellitus): Status: Acute (4) Uterine cancer: Status: Acute (5) Thrombocytopenia: Status: Acute (6) History of stroke: Status: Acute (7) DVT (deep venous thrombosis): Status: Acute Qualifiers: Affected thrombotic vein of extremity: femoral Chronicity: acute DVT l ocation: lower extremity Laterality: right Qualified Code(s): I82.411 - Acute embolism and thrombosis of right femoral vein (8) S/P BKA (below knee amputation) bilateral: Status: Acute (9) Endocardial thrombosis: Status: Acute Narrative A/P Narrative: Assessment and Plans: 1. Gross hematuria: DDx: secondary to anticoagulant therapy Eliquis, side effect of chemoradiation therapy, malignancy Inpatient med surg Dr. Hanks saw patient, performed cystoscopy revealed no masses in the bladder there was some mild erythema consistent with possible radiation cystitis. He pulled her Martin catheter. No more reported gross hematuria overnight. CT abdomen pelvis showed multiple infarcts in left kidney and spleen Serial H/H to monitor blood count and transfuse if it keeps dropping or <7.0 Hold Aspirin/Eliquis 2. UTI, bacterial vs fungal: Serial lactic acid 0.7 Blood culture, no growth to date Urine culture, no growth to date cbc w/ auto diff in the morning to trend WBC Rocephin Diflucan Saline lock 3. Thrombocytopenia: cbc w/ auto diff to trend plt count 4. T2DM: HgA1c Hold Metformin/Glipizide Lispro SSI AC HS Accu Check AC HS Hypoglycemia protocol Diabetic diet 5. h/o DVT: Hold Eliquis for concurrent gross hematuria 6. h/o stroke: Hold Aspirin for concurrent gross hematuria 7. h/o uterine cancer: Follow up with outpatient oncologist 8. Endocardial mass: TTE showed 2.3X1.0cm echogenic structure extending from LVOT toward anterior leaflet Consult cardiology regarding further study and recs. for the nature and management of the cardiac mass I spoke with the cardiology team from [facility] in [place] and they accepted the patient is pending bed availability. They recommend starting the patient on heparin drip according to pulmonary embolism protocol, currently running at 1000unit/h CRP 3.70 elevated ESR 2 GI ppx: not currently indicated DVT ppx: Heparin drip Code status: Full Prognosis: guarded Disposition: inpatient med surg; pending transfer to [facility] Re: cardiology Time Spent With Patient Time: Total time spent is greater than 50% in coordination of care (as documented) at patient's floor/unit and/or counseling patient: Subsequent: Total time with patient: 35 - 49 minutes QUALITY VTE Deep Vein Thrombosis/Pulmonary Embolism Present on Admission: Yes
[2022-03-24] MEDS: INSULIN LISPRO 1 UNIT/0.01 ML UNIT SQ SCH ×4 (08:14→21:17)
[2022-03-24] MEDS: busPIRone 5 MG TABLET PO SCH ×3 (08:15→21:18)
[2022-03-24] MEDS: cefTRIAXone 1 GM VIAL IV SCH (08:15)
[2022-03-24] MEDS: FENOFIBRATE 43 MG CAPSULE PO SCH (08:15)
[2022-03-24] MEDS: FLUCONAZOLE 100 MG TABLET PO SCH (08:15)
[2022-03-24 09:00] LABS: ALT/SGPT 9 U/L (<40); AST/SGOT 19 U/L (<32); Albumin 3.7 gm/dL (3.2-5.2); Albumin/Globulin Ratio 1.4 (1.0-2.3); Alkaline Phosphatase 54 U/L (39-117); Bilirubin,Total 0.2 mg/dL (0.1-1.0); Blood Urea Nitrogen 13 mg/dL (8-23); Calcium 9.1 mg/dL (8.6-10.4); Carbon Dioxide 21 mmol/L (22-30); Chloride 103 mmol/L (96-108); Globulin 2.7 gm/dL (2.2-3.7); Glomerular Filtration Rate 79; Glucose 188 mg/dL (70-105)
[2022-03-24] MEDS: 0.9 % SODIUM CHLORIDE 10 ML SYRINGE IV PRN ×4 (09:41→16:53)
[2022-03-24] MEDS: ONDANSETRON 4 MG/2 ML VIAL IV PRN ×2 (09:41→14:21)
[2022-03-24 10:15] LABS: Basophils # (Auto) 0.02 K/mcL (0.00-0.30); Basophils % (Auto) 0.3 % (0.0-2.0); Eosinophils # (Auto) 0.09 K/mcL (0.00-0.70); Eosinophils % (Auto) 1.3 % (0.0-7.0); Hematocrit 32.2 % (34.1-44.9); Hemoglobin 9.6 g/dL (11.2-15.7); Lymphocytes # (Auto) 0.48 K/mcL (1.50-4.80); Mean Cell Volume 92.8 fL (80.0-100.0); Mean Corpuscular HGB Conc 29.8 g/dL (31.0-36.0); Mean Platelet Volume 11.7 fL (8.8-12.5); Monocytes # (Auto) 0.23 K/mcL (0.10-0.90); Monocytes % (Auto) 3.3 % (1.0-12.0); Neutrophils % (Auto) 87.4 % (38.0-78.0); Platelet Count 43 K/mcL (140-440); RBC 3.47 M/mcL (3.59-5.38); Red Cell Distribution Width 15.6 % (11.5-14.5); WBC 6.9 K/mcL (4.5-11.0)
[2022-03-24 12:30] LABS: INR 1.1 (0.9-1.1); Prothrombin Time 15.1 sec (11.9-14.5)
--- NOTE | 2022-03-24 13:39 | Internal Med Progress Note ---
SUBJECTIVE Subjective Patient information: Note initiated : 03/24/22 at 1:30 pm Service Date, if different from initiated Date: [] Patient: Lupe Sanchez a 61 y/o F admitted on 03/21/22 for vaginal bleeding since last night; hematuria. Chief Complaint: [] Interval history: Spoke with cardiology team from [facility] in [facility]. Daniel is a 61 year old F uterine cancer, type 2 diabetes mellitus, DVT on Eliquis, frequent UTI, bilateral BKA, care home resident, presenting with gross hematuria. The following history is limited by patient's clinical situations. Daughter is at the bedside but she does not know much about why or how the patient was being sent by the care home to our ED. It was reported that the care home staff found the patient have gross hematuria and is called EMS to send the patient to our ED for further evaluations. Gross hematuria continue to be observed in the ED. hemoglobin and hematocrit 9.4 and 29.3 today, as compared to baseline of 12.6 and 39.2. Vital signs significant with soft blood pressure latest set of blood pressure 77/62mmHg. UA suggesting the presence of bacterial/fungal UTI. ED doctor called also hospital urology for consultations and they recommend the patient to stay in our facility and consult our own urology tomorrow when it becomes available. 03/22: Gross hematuria resolved. H&H stable at 9.1/29.7. Patient denies any chest pain shortness of breath or palpitations. She denies any abdominal pain or pelvic pain. Afebrile overnight. Blood and urine culture no growth to date. CT abdomen pelvis w/ w/o contrast to look for intraabdominal/pelvic pathologies for hematuria. Consulting urologist Dr. Hanks for hematuria, recs. appreciated. Continue to hold Aspirin/Eliquis. Continue IV fluid NS@100cc/hr, Rocephin, and Diflucan for UTI. 03/23: CT abdomen pelvis showed multiple infarcts in left kidney and spleen. TTE showed 2.3X1.0cm echogenic structure extending from LVOT toward anterior leaflet. Dr. Hanks saw patient yesterday, performed cystoscopy revealed no masses in the bladder there was some mild erythema consistent with possible radiation cystitis. He pulled her Martin catheter. No more reported gross hematuria overnight. Consult cardiology regarding further study and recs. for the nature and management of the cardiac mass. Continue to hold Aspirin/Eliquis. Continue Rocephin, and Diflucan for UTI. Saline lock. Downgrade to med surg. 03/24: I spoke with the cardiology team from [facility] in [place] and they accepted the patient is pending bed availability. They recommend starting the patient on heparin drip according to pulmonary embolism protocol, currently running at 1000unit/h. No more reported gross hematuria. All cultures no growth to date. Patient is complaining of substernal chest pain. Pending transfer to [facility] in [place]. Continue heparin drip according to PE protocol. Twelve-lead EKG and serial troponin to rule out ACS. Nitroglycerin and morphine as needed for chest pain symptoms control. Continue Rocephin and Diflucan for urinary tract infections. Constitutional Vitals: Vital Signs Temp Pulse Resp BP Pulse Ox O2 Del Method 97.7 F 80 18 126/42 91 03/24/22 12:05 03/24/22 12:05 03/24/22 12:05 03/24/22 12:05 03/24/22 12:05 03/24/22 12:05 Period Temp Pulse Resp BP Sys/Huertas Pulse Ox O2 Del Method O2 Flow Rate Last 24 Hr 97.1 F-98.3 F 74-96 12-21 121-149/41-57 91-100 Room Air-Room Air Intake and Output 03/24/22 03/24/22 03/24/22 03:59 11:59 19:59 Intake Total 1200 163 158 Output Total 750 552 100 Balance 450 -389 58 Weight 49.952 kg Intake & Output: Intake & Output 03/24/22 03/24/22 03/24/22 03:59 11:59 19:59 Intake Total 1200 163 158 Output Total 750 552 100 Balance 450 -389 58 Weight 49.952 kg Intake: IV 163 158 Heparin/0.45%Ns 25,000 Unit In 163 158 Premix 1 Bag @ 1,000 UNIT/HR 20 mls/hr IV .Q24H FAITH Rx#: [id number] Oral 1200 Output: Void Amount 750 550 100 # of times incontinent of urine 2 Other: Urine Appearance Clear Clear Clear Urine Color [place] Urine Odor Normal # Unmeasured Emesis 2 Exam: General: Alert, Awake, No acute Distress Eyes/N/T: EOMI, Head/Neck: neck supple, CV: RRR, No murmurs, Right chest port-a-cath Pulm: Clear b/l, no wheezing/rhonchi/rales Abd: soft, nontender, +BS x4 Ext: no clubbing/cyanosis/edema, bilateral BKA Neuro: Alert, no focal deficits, moves all extremities, Skin: warm/dry OBJ DATA Labs CBC & Chem 7: 03/24/22 07:20 03/24/22 07:20 Labs: Abnormal Lab Results 03/24/22 03/24/22 03/24/22 11:00 11:00 07:20 RBC Hgb Hct MCHC RDW Plt Count Immature Gran % (Auto) Neut % (Auto) Lymph % (Auto) Lymph # (Auto) PT 15.1 H INR APTT 200.0 H* Carbon Dioxide Glucose Calcium Troponin T 0.48 H* 0.23 H* C-Reactive Protein Total Protein Urine Appearance Urine Protein Urine Glucose (UA) Urine Ketones Urine Occult Blood Urine Nitrate Urine Urobilinogen Ur Leukocyte Esterase Urine RBC Urine WBC Ur Squamous Epith Cells Urine Bacteria Urine Yeast (Budding) 03/24/22 03/24/22 03/24/22 07:20 07:20 02:30 RBC 3.47 L Hgb 9.6 L Hct 32.2 L MCHC 29.8 L RDW 15.6 H Plt Count 43 L* Immature Gran % (Auto) 0.7 H Neut % (Auto) 87.4 H Lymph % (Auto) 7.0 L Lymph # (Auto) 0.48 L PT 15.0 H INR APTT 102.5 H Carbon Dioxide 21 L Glucose 188 H Calcium Troponin T C-Reactive Protein Total Protein Urine Appearance Urine Protein Urine Glucose (UA) Urine Ketones Urine Occult Blood Urine Nitrate Urine Urobilinogen Ur Leukocyte Esterase Urine RBC Urine WBC Ur Squamous Epith Cells Urine Bacteria Urine Yeast (Budding) 03/23/22 03/23/22 03/23/22 19:14 13:10 06:20 RBC Hgb Hct MCHC RDW Plt Count Immature Gran % (Auto) Neut % (Auto) Lymph % (Auto) Lymph # (Auto) PT 15.2 H INR 1.2 H APTT Carbon Dioxide 21 L Glucose 151 H Calcium 8.2 L Troponin T C-Reactive Protein 3.70 H Total Protein 5.5 L Urine Appearance Urine Protein Urine Glucose (UA) Urine Ketones Urine Occult Blood Urine Nitrate Urine Urobilinogen Ur Leukocyte Esterase Urine RBC Urine WBC Ur Squamous Epith Cells Urine Bacteria Urine Yeast (Budding) 03/23/22 03/22/22 03/22/22 06:20 05:42 05:42 RBC 2.88 L 3.23 L Hgb 8.2 L 9.1 L Hct 26.6 L 29.7 L MCHC 30.8 L 30.6 L RDW 14.8 H 14.6 H Plt Count 36 L* 39 L* Immature Gran % (Auto) 0.8 H 0.6 H Neut % (Auto) 86.4 H 82.6 H Lymph % (Auto) 6.5 L 9.0 L Lymph # (Auto) 0.42 L 0.45 L PT INR APTT Carbon Dioxide Glucose 131 H Calcium Troponin T C-Reactive Protein Total Protein Urine Appearance Urine Protein Urine Glucose (UA) Urine Ketones Urine Occult Blood Urine Nitrate Urine Urobilinogen Ur Leukocyte Esterase Urine RBC Urine WBC Ur Squamous Epith Cells Urine Bacteria Urine Yeast (Budding) 03/21/22 03/21/22 18:56 12:30 RBC Hgb 8.7 L Hct 27.3 L MCHC RDW Plt Count Immature Gran % (Auto) Neut % (Auto) Lymph % (Auto) Lymph # (Auto) PT INR APTT Carbon Dioxide Glucose Calcium Troponin T C-Reactive Protein Total Protein Urine Appearance Turbid A Urine Protein >=300 A Urine Glucose (UA) >=1000 A Urine Ketones Color interference A Urine Occult Blood Large A Urine Nitrate Color interference A Urine Urobilinogen Color interference A Ur Leukocyte Esterase Color interference A Urine RBC 152 H Urine WBC > 182 H Ur Squamous Epith Cells 18 H Urine Bacteria Mod A Urine Yeast (Budding) Many A Meds: Medications Acetaminophen (Acetaminophen 325 Mg Tablet) 650 mg PO Q6HP PRN; Protocol PRN Reason: Per Pain Protocol/Fever > 101 Last Admin: 03/24/22 01:55 Dose: 650 mg Albuterol/Ipratropium (Ipratropium/Albuterol 3 Ml Ampul.Neb) 3 ml NEB Q4HRT PRN PRN Reason: Wheezing Buspirone HCl (Buspirone 5 Mg Tablet) 5 mg PO HS FAITH Last Admin: 03/23/22 20:45 Dose: 5 mg Buspirone HCl (Buspirone 5 Mg Tablet) 10 mg PO BID@0800,1500 [facility] Last Admin: 03/24/22 08:15 Dose: 10 mg Ceftriaxone Sodium (Ceftriaxone 1 Gm Vial) 1 gm IV Q24H [facility] Last Admin: 03/24/22 08:15 Dose: 1 gm Dextrose (Dextrose 50% 50 Ml Vial) 0 ml IV UD PRN PRN Reason: Per Sliding Scale Diagnostic Test (Pha) (Accu-Chek 1 Each Strip) 1 each FS [facility] Last Admin: 03/24/22 12:04 Dose: 1 each Docusate Sodium (Docusate Sodium 100 Mg Capsule) 100 mg PO BID [facility] Last Admin: 03/24/22 07:34 Dose: Not Given Fenofibrate (Fenofibrate 43 Mg Capsule) 129 mg PO DAILY [facility] Last Admin: 03/24/22 08:15 Dose: 129 mg Fluconazole (Fluconazole 100 Mg Tablet) 400 mg PO DAILY [facility] Last Admin: 03/24/22 08:15 Dose: 400 mg Glucose (Dextrose 31 Gm Oral.Susp) 15 gm PO PRN PRN PRN Reason: Hypoglycemia Heparin Sodium (Porcine) (Heparin Flush 10 Units/Ml 5 Ml Syringe) 5 ml IV Q12 [facility] Last Admin: 03/24/22 08:15 Dose: Not Given Heparin Sodium/Sodium Chloride (25,000 unit/ Premix) 500 mls @ 20 mls/hr IV .Q24H [facility]; Protocol Last Titration: 03/24/22 13:16 Dose: 0 unit/hr, 0 mls/hr Ibuprofen (Ibuprofen 800 Mg Tablet) 800 mg PO Q8HP PRN; Protocol PRN Reason: Pain Last Admin: 03/22/22 23:11 Dose: 800 mg Insulin Human Lispro (Insulin Lispro 1 Unit/0.01 Ml Unit) 0 unit SQ [facility]; Protocol Last Admin: 03/24/22 12:04 Dose: Not Given Lactulose (Lactulose 20 Gm/30 Ml Oral.Lala) 10 gm PO DAILYP PRN PRN Reason: Constipation Loperamide HCl (Loperamide 2 Mg Capsule) 2 mg PO Q2HP PRN PRN Reason: Diarrhea Last Admin: 03/22/22 21:22 Dose: 2 mg Lorazepam (Lorazepam 0.5 Mg Tablet) 0.5 mg PO Q4-6HP PRN PRN Reason: ANXIETY/SEDATION Last Admin: 03/24/22 04:47 Dose: 0.5 mg Metoclopramide HCl (Metoclopramide 10 Mg/2 Ml Vial) 10 mg IV Q6HP PRN PRN Reason: Nausea And Vomiting Morphine Sulfate (Morphine 2 Mg/Ml Vial) 2 mg IV Q4HP PRN; Protocol PRN Reason: Per Pain Protocol Nitroglycerin (Nitroglycerin 0.4 Mg Tab.Subl) 0.4 mg SL Q5M PRN PRN Reason: Chest Pain Ondansetron HCl (Ondansetron 4 Mg/2 Ml Vial) 4 mg IV Q4HP PRN; Protocol PRN Reason: Nausea And Vomiting Last Admin: 03/24/22 09:41 Dose: 4 mg Phenazopyridine HCl (Phenazopyridine 200 Mg Tablet) 200 mg PO TIDP PRN PRN Reason: PAINFUL URINATION Last Admin: 03/24/22 02:49 Dose: 200 mg Senna (Sennosides 1 Tablet) 2 tab PO HSP PRN PRN Reason: Constipation Sodium Chloride (0.9 % Sodium Chloride 10 Ml Syringe) 10 ml IV UD PRN PRN Reason: FLUSH Last Admin: 03/24/22 11:01 Dose: 10 ml Sodium Chloride (Sodium Chloride Nasal 1 [place] Bottle) 1 spray SJ DAILYP PRN PRN Reason: Congestion A/P Narrative A/P Narrative: Assessment and Plans: *Gross hematuria: -DDx: 2/2 anticoagulant therapy Eliquis, side effect of chemoradiation therapy, malignancy -Dr. Hanks saw patient, performed cystoscopy revealed no masses in the bladder there was some mild erythema consistent with possible radiation cystitis. He pulled her Martin catheter. No more reported gross hematuria overnight. -CT abdomen pelvis showed multiple infarcts in left kidney and spleen *Acute blood loss anemia: 2/2 above -Serial H/H to monitor blood count and transfuse if it keeps drops <7.0 -Hold Aspirin/Eliquis *UTI, bacterial vs fungal: -Blood culture, no growth to date , Urine culture no growth to date -cbc w/ auto diff in the morning to trend WBC -Rocephin / Diflucan *Thrombocytopenia: cbc w/ auto diff to trend plt count, monitor closely *T2DM: -HgA1c -Hold Metformin/Glipizide, SSI *h/o DVT: home Eliquis currently held, on heparin gtt *h/o stroke: -on Aspirin at home *h/o uterine cancer: Follow up with outpatient oncologist *Endocardial mass: -TTE showed 2.3X1.0cm echogenic structure extending from LVOT toward anterior leaflet -Dr. Calero spoke with cardiology team at [facility] and they accepted the patient, pending bed. They recommend starting the patient on heparin drip according to pulmonary embolism protocol and to get CTA of head. *ppx: Heparin drip Code status: Appointment Manager Spent With Patient Time: Total time spent is greater than 50% in coordination of care (as documented) at patient's floor/unit and/or counseling patient: QUALITY VTE Deep Vein Thrombosis/Pulmonary Embolism Present on Admission: Yes
[2022-03-24] MEDS ORDERED: IOPAMIDOL 100 ML BOTTLE IV ONE (14:02)
--- NOTE | 2022-03-24 14:44 | Cat Scan Report ---
CLINICAL INFORMATION: Decreased vision evaluate for CVA COMPARISON: Head CT 12/08/2021 TECHNIQUE: 80 cc of Isovue-370 were injected intravenously , and using SmartPrep to maximize cerebral arterial opacification, 0.625 mm helical slices were obtained from the skull base through the cerebral vertex. Following reconstruction , sagittal, coronal and axial reformatted images were processed and reviewed at multiple windows and levels. 3D volume rendered and MIP images were acquired at a independent workstation. The exam was performed using radiation dose optimization techniques including, but not limited to, automated exposure control, adjustment of the mA and/or kV according to patient size and use of iterative reconstruction technique. FINDINGS: Precontrast images show old cortical-based infarct of the entire left occipital lobe with a small cortical based infarct in the right occipital lobe near vertex. In addition, there are multiple moderate infarcts scattered throughout both cerebellar hemispheres. All infarcts are in the posterior distribution. The intracranial internal carotid, vertebral, basilar, anterior and middle cerebral arteries are normal in contour and caliber well opacified without abnormality. The left P2 posterior cerebral artery is diminutive with a series of 5-6 stenoses greater than 90%. No evidence of thrombi or emboli seen. IMPRESSION: 1. There are 4-5 high-grade stenoses in the proximal left posterior cerebral artery P2 branch ranging up to 90%. The remaining intracerebral arterial vasculature is unremarkable 2. Multiple moderately old cortical-based infarcts scattered throughout both cerebellar hemispheres, large remote infarct the entire left occipital lobe and small remote infarct involving the superior right occipital lobe. These are unchanged from 12/09/[address] Consider: transesophageal echocardiogram and CT cerebral carotid arteriogram to exclude emboli source which may be recurrent in the posterior arterial circulation Interpreted and Authenticated by: Elmer Moreau 03/24/22
--- NOTE | 2022-03-24 17:30 | EKG ---
[facility] Test Date: 2022-03-24 Pat Name: Lupe Sanchez Department: ICU Room: 118 Gender: Female Spa Manager: : 1960 Requested By: Carlos Calero Order Number: [id number] Reading MD: David Briceño D.O. Measurements Intervals [place] Rate: 90 P: 62 TX: 154 QRS: 54 QRSD: 86 T: 123 QT: 375 QTc: 461 Interpretive Statements Sinus rhythm Ventricular bigeminy Electronically Signed On 03-24-2022 17:30:25 PST by David Briceño D.O. /[id number]/[email or web address]/[id number]
[2022-03-24] MEDS: HEPARIN SOD,PORK IN 0.45% NACL 25,000 UNIT in PREMIX 1 BAG IV SCH (20:58)
[2022-03-24] MEDS ORDERED: HEPARIN 5,000 UNIT/ML VIAL ONE (21:03)
[2022-03-24] MEDS: IBUPROFEN 800 MG TABLET PO PRN (22:10)
[2022-03-25 07:06] LABS: ALT/SGPT 87 U/L (<40); AST/SGOT 239 U/L (<32); Albumin 3.1 gm/dL (3.2-5.2); Albumin/Globulin Ratio 1.3 (1.0-2.3); Alkaline Phosphatase 69 U/L (39-117); Bilirubin,Direct < 0.2 mg/dL (0-0.3); Bilirubin,Total 0.2 mg/dL (0.1-1.0); Blood Urea Nitrogen 18 mg/dL (8-23); Calcium 8.6 mg/dL (8.6-10.4); Carbon Dioxide 23 mmol/L (22-30); Chloride 102 mmol/L (96-108); Globulin 2.3 gm/dL (2.2-3.7); Glomerular Filtration Rate 61; Glucose 140 mg/dL (70-105); Lactate Dehydrogenase 928 U/L (135-225); Phosphorous 4.1 mg/dL (2.5-4.5); Triglycerides 181 mg/dL (<150); Uric Acid 5.2 mg/dL (2.5-8.0)
--- NOTE | 2022-03-25 07:44 | Internal Med Progress Note ---
SUBJECTIVE Subjective Patient information: Note initiated : 03/25/22 at 7:41 am Service Date, if different from initiated Date: [] Patient: Lupe Sanchez a 61 y/o F admitted on 03/21/22 for vaginal bleeding since last night; hematuria. Chief Complaint: [] Interval history: Spoke with cardiology team from [facility] in [facility]. Daniel is a 61 year old F uterine cancer, type 2 diabetes mellitus, DVT on Eliquis, frequent UTI, bilateral BKA, [facility] resident, presenting with gross hematuria. The following history is limited by patient's clinical situations. Daughter is at the bedside but she does not know much about why or how the patient was being sent by the [place] [facility] to our ED. It was reported that the [place] staff found the patient have gross hematuria and is called EMS to send the patient to our ED for further evaluations. Gross hematuria continue to be observed in the ED. hemoglobin and hematocrit 9.4 and 29.3 today, as compared to baseline of 12.6 and 39.2. Vital signs significant with soft blood pressure latest set of blood pressure 77/62mmHg. UA suggesting the presence of bacterial/fungal UTI. ED doctor called also hospital urology for consultations and they recommend the patient to stay in our facility and consult our own urology tomorrow when it becomes available. 03/22: Gross hematuria resolved. H&H stable at 9.1/29.7. Patient denies any chest pain shortness of breath or palpitations. She denies any abdominal pain or pelvic pain. Afebrile overnight. Blood and urine culture no growth to date. CT abdomen pelvis w/ w/o contrast to look for intraabdominal/pelvic pathologies for hematuria. Consulting urologist Dr. Hanks for hematuria, recs. appreciated. Continue to hold Aspirin/Eliquis. Continue IV fluid NS@100cc/hr, Rocephin, and Diflucan for UTI. 03/23: CT abdomen pelvis showed multiple infarcts in left kidney and spleen. TTE showed 2.3X1.0cm echogenic structure extending from LVOT toward anterior leaflet. Dr. Hanks saw patient yesterday, performed cystoscopy revealed no masses in the bladder there was some mild erythema consistent with possible radiation cystitis. He pulled her Martin catheter. No more reported gross hematuria overnight. Consult cardiology regarding further study and recs. for the nature and management of the cardiac mass. Continue to hold Aspirin/Eliquis. Continue Rocephin, and Diflucan for UTI. Saline lock. Downgrade to med surg. 03/24: I spoke with the cardiology team from [facility] in [place] and they accepted the patient is pending bed availability. They recommend starting the patient on heparin drip according to pulmonary embolism protocol, currently running at 1000unit/h. No more reported gross hematuria. All cultures no growth to date. Patient is complaining of substernal chest pain. Pending transfer to [facility] in [place]. Continue heparin drip according to PE protocol. Twelve-lead EKG and serial troponin to rule out ACS. Nitroglycerin and morphine as needed for chest pain symptoms control. Continue Rocephin and Diflucan for urinary tract infections. 03/25 Patient slept well. Weakness is improving. Her troponin went from 0.48 yesterday afternoon to 6.8 this morning, she denies chest pain or shortness of breath. She does have new EKG changes of some mild ST elevation in 3 [address] some ST depression in the anterior lateral leads V4 through 6. I discussed the case with Dr. Kaufman erp technical lead at [facility] who will assist in transfer over to their facility. Patient is on a heparin drip. Discussed case with erp technical lead who feels patient needs to be where CT surgery is available. Sounds like they should be able to make a bed available at [facility] today. Review of Systems: denies headache/fever/chills/nausea/vomiting/chest or abdominal pain/cough/dyspnea/diarrhea. Otherwise see above. Constitutional Vitals: Vital Signs Temp Pulse Resp BP Pulse Ox O2 Del Method O2 Flow Rate 98.4 F 81 10 L 109/50 91 0 03/25/22 07:15 03/25/22 07:15 03/25/22 07:15 03/25/22 07:15 03/25/22 07:15 03/25/22 07:15 03/25/22 05:03 Period Temp Pulse Resp BP Sys/Huertas Pulse Ox O2 Del Method O2 Flow Rate Last 24 Hr 97.1 F-98.5 F 80-96 10-19 83-149/42-63 91-95 Room Air-Room Air 0-0 Intake and Output 03/24/22 03/25/2203/25/23 19:59 03:59 11:59 Intake Total 898 2 303 Output Total 350 100 Balance 548 -98 303 Weight 50.349 kg Intake & Output: Intake & Output 03/24/22 03/25/22 03/25/22 19:59 03:59 11:59 Intake Total 898 2 303 Output Total 350 100 Balance 548 -98 303 Weight 50.349 kg Intake: Nourishment/Supplement quantity 240 (ml) IV 158 2 3 Heparin/0.45%Ns 25,000 Unit In 158 2 3 Premix 1 Bag @ 1,000 UNIT/HR 20 mls/hr IV .Q24H [facility] Rx#: [id number] Oral 500 300 Output: Void Amount 350 100 Other: Nourishment/Supplement name [place] boost Urine Appearance Clear Clear Urine Color Evans Evans Urine Odor Normal # Bowel Movements 0 Exam: General: Alert, Awake, No acute Distress Eyes/N/T: EOMI, Head/Neck: neck supple, CV: RRR, No murmurs, Right chest port-a-cath Pulm: Clear b/l, no wheezing/rhonchi/rales Abd: soft, nontender, +BS x4 Ext: no clubbing/cyanosis/edema, bilateral BKA Neuro: Alert, no focal deficits, moves all extremities, Skin: warm/dry OBJ DATA Labs CBC & Chem 7: 03/25/22 04:45 03/25/22 04:45 Labs: Abnormal Lab Results 03/25/22 03/25/22 03/25/22 04:45 04:45 04:45 RBC Hgb Hct MCHC RDW Plt Count Immature Gran % (Auto) Neut % (Auto) Lymph % (Auto) Lymph # (Auto) PT INR APTT > 200 H* Carbon Dioxide Glucose 140 H Calcium AST 239 H ALT 87 H Lactate Dehydrogenase 928 H Troponin T 6.80 H* C-Reactive Protein 4.70 H Total Protein 5.4 L Albumin 3.1 L Triglycerides 181 H 03/25/22 03/24/22 03/24/22 02:50 19:05 11:00 RBC Hgb Hct MCHC RDW Plt Count Immature Gran % (Auto) Neut % (Auto) Lymph % (Auto) Lymph # (Auto) PT INR APTT > 200 H* 48.3 H Carbon Dioxide Glucose Calcium AST ALT Lactate Dehydrogenase Troponin T 0.48 H* C-Reactive Protein Total Protein Albumin Triglycerides 03/24/22 03/24/22 03/24/22 11:00 07:20 07:20 RBC Hgb Hct MCHC RDW Plt Count Immature Gran % (Auto) Neut % (Auto) Lymph % (Auto) Lymph # (Auto) PT 15.1 H INR APTT 200.0 H* Carbon Dioxide 21 L Glucose 188 H Calcium AST ALT Lactate Dehydrogenase Troponin T 0.23 H* C-Reactive Protein Total Protein Albumin Triglycerides 03/24/22 03/24/22 03/23/22 07:20 02:30 19:14 RBC 3.47 L Hgb 9.6 L Hct 32.2 L MCHC 29.8 L RDW 15.6 H Plt Count 43 L* Immature Gran % (Auto) 0.7 H Neut % (Auto) 87.4 H Lymph % (Auto) 7.0 L Lymph # (Auto) 0.48 L PT 15.0 H 15.2 H INR 1.2 H APTT 102.5 H Carbon Dioxide Glucose Calcium AST ALT Lactate Dehydrogenase Troponin T C-Reactive Protein Total Protein Albumin Triglycerides 03/23/22 03/23/22 03/23/22 13:10 06:20 06:20 RBC 2.88 L Hgb 8.2 L Hct 26.6 L MCHC 30.8 L RDW 14.8 H Plt Count 36 L* Immature Gran % (Auto) 0.8 H Neut % (Auto) 86.4 H Lymph % (Auto) 6.5 L Lymph # (Auto) 0.42 L PT INR APTT Carbon Dioxide 21 L Glucose 151 H Calcium 8.2 L AST ALT Lactate Dehydrogenase Troponin T C-Reactive Protein 3.70 H Total Protein 5.5 L Albumin Triglycerides Meds: Medications Acetaminophen (Acetaminophen 325 Mg Tablet) 650 mg PO Q6HP PRN; Protocol PRN Reason: Per Pain Protocol/Fever > 101 Last Admin: 03/24/22 01:55 Dose: 650 mg Albuterol/Ipratropium (Ipratropium/Albuterol 3 Ml Ampul.Neb) 3 ml NEB Q4HRT PRN PRN Reason: Wheezing Buspirone HCl (Buspirone 5 Mg Tablet) 5 mg PO HS FAITH Last Admin: 03/24/22 21:18 Dose: 5 mg Buspirone HCl (Buspirone 5 Mg Tablet) 10 mg PO BID@0800,1500 [facility] Last Admin: 03/24/22 15:21 Dose: 10 mg Ceftriaxone Sodium (Ceftriaxone 1 Gm Vial) 1 gm IV Q24H [facility] Last Admin: 03/24/22 08:15 Dose: 1 gm Dextrose (Dextrose 50% 50 Ml Vial) 0 ml IV UD PRN PRN Reason: Per Sliding Scale Diagnostic Test (Pha) (Accu-Chek 1 Each Strip) 1 each FS ACHS [facility] Last Admin: 03/24/22 21:17 Dose: 1 each Docusate Sodium (Docusate Sodium 100 Mg Capsule) 100 mg PO BID [facility] Last Admin: 03/24/22 21:18 Dose: Not Given Fenofibrate (Fenofibrate 43 Mg Capsule) 129 mg PO DAILY [facility] Last Admin: 03/24/22 08:15 Dose: 129 mg Fluconazole (Fluconazole 100 Mg Tablet) 400 mg PO DAILY [facility] Last Admin: 03/24/22 08:15 Dose: 400 mg Glucose (Dextrose 31 Gm Oral.Susp) 15 gm PO PRN PRN PRN Reason: Hypoglycemia Heparin Sodium (Porcine) (Heparin Flush 10 Units/Ml 5 Ml Syringe) 5 ml IV Q12 [facility] Last Admin: 03/24/22 21:18 Dose: Not Given Heparin Sodium/Sodium Chloride (25,000 unit/ Premix) 500 mls @ 20 mls/hr IV .Q24H [facility]; Protocol Last Titration: 03/25/22 06:00 Dose: 705 unit/hr, 14.1 mls/hr Ibuprofen (Ibuprofen 800 Mg Tablet) 800 mg PO Q8HP PRN; Protocol PRN Reason: Pain Last Admin: 03/24/22 22:10 Dose: 800 mg Insulin Human Lispro (Insulin Lispro 1 Unit/0.01 Ml Unit) 0 unit SQ [facility]; Protocol Last Admin: 03/24/22 21:17 Dose: 3 unit Lactulose (Lactulose 20 Gm/30 Ml Oral.Lala) 10 gm PO DAILYP PRN PRN Reason: Constipation Loperamide HCl (Loperamide 2 Mg Capsule) 2 mg PO Q2HP PRN PRN Reason: Diarrhea Last Admin: 03/22/22 21:22 Dose: 2 mg Lorazepam (Lorazepam 0.5 Mg Tablet) 0.5 mg PO Q4-6HP PRN PRN Reason: ANXIETY/SEDATION Last Admin: 03/24/22 04:47 Dose: 0.5 mg Metoclopramide HCl (Metoclopramide 10 Mg/2 Ml Vial) 10 mg IV Q6HP PRN PRN Reason: Nausea And Vomiting Last Admin: 03/24/22 16:53 Dose: 10 mg Morphine Sulfate (Morphine 2 Mg/Ml Vial) 2 mg IV Q4HP PRN; Protocol PRN Reason: Per Pain Protocol Nitroglycerin (Nitroglycerin 0.4 Mg Tab.Subl) 0.4 mg SL Q5M PRN PRN Reason: Chest Pain Ondansetron HCl (Ondansetron 4 Mg/2 Ml Vial) 4 mg IV Q4HP PRN; Protocol PRN Reason: Nausea And Vomiting Last Admin: 03/24/22 14:21 Dose: 4 mg Phenazopyridine HCl (Phenazopyridine 200 Mg Tablet) 200 mg PO TIDP PRN PRN Reason: PAINFUL URINATION Last Admin: 03/24/22 02:49 Dose: 200 mg Senna (Sennosides 1 Tablet) 2 tab PO HSP PRN PRN Reason: Constipation Sodium Chloride (0.9 % Sodium Chloride 10 Ml Syringe) 10 ml IV UD PRN PRN Reason: FLUSH Last Admin: 03/24/22 16:53 Dose: 10 ml Sodium Chloride (Sodium Chloride Nasal 1 [place] [facility] Bottle) 1 spray SJ DAILYP PRN PRN Reason: Congestion A/P Narrative A/P Narrative: Assessment and Plans: *Endocardial mass: -TTE showed 2.3X1.0cm echogenic structure extending from LVOT toward anterior leaflet -Dr. Calero spoke with cardiology team at [facility] and they accepted the patient, pending bed. They recommend starting the patient on heparin drip according to pulmonary embolism protocol and to get CTA of head which shows old infarcts but no acute. *NSTEMI: no chest pain currently -elevated troponins 0.23>0.48>6.8 -f/u ekg with ischemic changesf -cxr with pulm edema, lasix -repeat echo per cardio *Transaminitis, mild: *Gross hematuria: resolved -DDx: 2/2 anticoagulant therapy Eliquis, side effect of chemoradiation therapy, malignancy -Dr. Hanks performed cystoscopy revealed no masses in the bladder there was some mild erythema consistent with possible radiation cystitis. He pulled her Martin catheter. No more reported gross hematuria overnight. -CT abdomen pelvis showed multiple infarcts in left kidney and spleen *Acute blood loss anemia: 2/2 above, now stable -Serial H/H to monitor blood count and transfuse if it keeps drops <7.0 -Hold Eliquis *UTI, bacterial vs fungal: -Blood culture, no growth to date , Urine culture no growth to date -cbc w/ auto diff in the morning to trend WBC -Rocephin / Diflucan *Thrombocytopenia: cbc w/ auto diff to trend plt count, monitor closely -better today *T2DM: -Hold Metformin/Glipizide, SSI *h/o DVT: home Eliquis currently held, on heparin gtt *h/o stroke: -on Aspirin at home *h/o uterine cancer: Follow up with outpatient oncologist *ppx: Heparin drip Code status: [employer] Director Spent With Patient Time: Total time spent is greater than 50% in coordination of care (as documented) at patient's floor/unit and/or counseling patient: Critical Care Time: Yes Total Critical Care Time: 70 QUALITY VTE Deep Vein Thrombosis/Pulmonary Embolism Present on Admission: Yes
[2022-03-25] MEDS: INSULIN LISPRO 1 UNIT/0.01 ML UNIT SQ SCH ×3 (08:12→16:43)
[2022-03-25] MEDS: DOCUSATE SODIUM 100 MG CAPSULE PO SCH (08:12)
[2022-03-25 08:15] LABS: Basophils # (Auto) 0.02 K/mcL (0.00-0.30); Basophils % (Auto) 0.5 % (0.0-2.0); Eosinophils % (Auto) 2.5 % (0.0-7.0); Hematocrit 24.9 % (34.1-44.9); Hemoglobin 7.6 g/dL (11.2-15.7); Lymphocytes # (Auto) 0.46 K/mcL (1.50-4.80); Lymphocytes % (Auto) 11.7 % (15.5-49.0); Mean Cell Volume 92.6 fL (80.0-100.0); Mean Corpuscular HGB Conc 30.5 g/dL (31.0-36.0); Mean Platelet Volume 13.6 fL (8.8-12.5); Monocytes # (Auto) 0.27 K/mcL (0.10-0.90); Monocytes % (Auto) 6.9 % (1.0-12.0); Neutrophils % (Auto) 77.4 % (38.0-78.0); Platelet Count 61 K/mcL (140-440); RBC 2.69 M/mcL (3.59-5.38); Red Cell Distribution Width 16.5 % (11.5-14.5); WBC 3.9 K/mcL (4.5-11.0)
--- NOTE | 2022-03-25 09:04 | XRay Report ---
CLINICAL INFORMATION: Dyspnea COMPARISON: 03/08/2020 TECHNIQUE: Portable FINDINGS: Right IJ Port-A-Cath tip overlies the SVC right atrial junction expected location. The heart is borderline enlarged. Mediastinum unremarkable. There is mild distention of the upper lobe pulmonary vasculature and minimal interstitial edema. Mild bibasilar airspace disease represents atelectasis or less likely developing infiltrates. No definite effusion. IMPRESSION: Mild CHF or volume overload Mild bibasilar airspace disease is more likely atelectasis than developing infiltrate Interpreted and Authenticated by: Elmer Moreau 03/25/22
[2022-03-25] MEDS: 0.9 % SODIUM CHLORIDE 10 ML SYRINGE IV PRN ×3 (09:59→13:33)
[2022-03-25] MEDS: cefTRIAXone 1 GM VIAL IV SCH (09:59)
[2022-03-25] MEDS: FLUCONAZOLE 100 MG TABLET PO SCH ×3 (10:09→12:45)
[2022-03-25] MEDS: busPIRone 5 MG TABLET PO SCH ×3 (10:09→14:27)
[2022-03-25] MEDS: FENOFIBRATE 43 MG CAPSULE PO SCH ×2 (10:12→10:46)
[2022-03-25] MEDS: ONDANSETRON 4 MG/2 ML VIAL IV PRN ×2 (10:50→18:43)
[2022-03-25] MEDS ORDERED: ALBUMIN HUMAN 12.5 GM/50 ML BAG IV ONE (11:00)
[2022-03-25] MEDS ORDERED: FUROSEMIDE 40 MG/4 ML VIAL IV ONE (11:00)
[2022-03-25] MEDS ORDERED: ASPIRIN 81 MG TAB.CHEW PO ONE (13:00)
--- NOTE | 2022-03-25 17:07 | Transfer Summary ---
Discharge Provider Provider IMPORTANT FOLLOW-UP INFORMATION FOR PCP: Patient information: Note initiated : 03/25/22 at 5:04 pm Service Date, if different from initiated Date: [] Patient: Lupe Sanchez 61 y/o F admitted on 03/21/22 for vaginal bleeding since last night; hematuria. Chief Complaint: [] Date of admission: 03/21/22 17:30 Discharge date: 03/25/22 Primary care physician: Enma Garcia PA-C Consults: 03/21/22 15:23 Consult to Physician [CONS] Stat Comment: Consulting Provider: Carlos Calero Reason For Exam: Physician to Consult 03/21/22 17:39 Consult to Physician [CONS] Routine Comment: Consulting Provider: Jacob Hanks Reason For Exam: Physician to Consult 03/23/22 10:07 Consult to Physician [CONS] Routine Comment: Consulting Provider: Pilar Alicia Cardiology Reason For Exam: Physician to Consult COURSE Hospital Course Hospital course: Interval history: Spoke with cardiology team from [facility] in [facility]. Daniel is a 61 year old F uterine cancer, type 2 diabetes mellitus, DVT on Eliquis, frequent UTI, bilateral BKA, long-term resident, presenting with gross hematuria. The following history is limited by patient's clinical situations. Daughter is at the bedside but she does not know much about why or how the patient was being sent by the long-term to our ED. It was reported that the long-term staff found the patient have gross hematuria and is called EMS to send the patient to our ED for further evaluations. Gross hematuria continue to be observed in the ED. hemoglobin and hematocrit 9.4 and 29.3 today, as compared to baseline of 12.6 and 39.2. Vital signs significant with soft blood pressure latest set of blood pressure 77/62mmHg. UA suggesting the presence of bacterial/fungal UTI. ED doctor called also hospital urology for consultations and they recommend the patient to stay in our facility and consult our own urology tomorrow when it becomes available. 03/22: Gross hematuria resolved. H&H stable at 9.1/29.7. Patient denies any chest pain shortness of breath or palpitations. She denies any abdominal pain or pelvic pain. Afebrile overnight. Blood and urine culture no growth to date. CT abdomen pelvis w/ w/o contrast to look for intraabdominal/pelvic pathologies for hematuria. Consulting urologist Dr. Hanks for hematuria, recs. appreciated. Continue to hold Aspirin/Eliquis. Continue IV fluid NS@100cc/hr, Rocephin, and Diflucan for UTI. 03/23: CT abdomen pelvis showed multiple infarcts in left kidney and spleen. TTE showed 2.3X1.0cm echogenic structure extending from LVOT toward anterior leaflet. Dr. Hanks saw patient yesterday, performed cystoscopy revealed no masses in the bladder there was some mild erythema consistent with possible radiation cy stitis. He pulled her Martin catheter. No more reported gross hematuria overnight. Consult cardiology regarding further study and recs. for the nature and management of the cardiac mass. Continue to hold Aspirin/Eliquis. Continue Rocephin, and Diflucan for UTI. Saline lock. Downgrade to med surg. 03/24: I spoke with the cardiology team from [facility] in [place] and they accepted the patient is pending bed availability. They recommend starting the patient on heparin drip according to pulmonary embolism protocol, currently running at 1000unit/h. No more reported gross hematuria. All cultures no growth to date. Patient is complaining of substernal chest pain. Pending transfer to [facility] in [place]. Continue heparin drip according to PE protocol. Twelve-lead EKG and serial troponin to rule out ACS. Nitroglycerin and morphine as needed for chest pain symptoms control. Continue Rocephin and Diflucan for urinary tract infections. 03/25 Patient slept well. Weakness is improving. Her troponin went from 0.48 yesterday afternoon to 6.8 this morning, she denies chest pain or shortness of breath. She does have new EKG changes of some mild ST elevation in 3 and aVF and some ST depression in the anterior lateral leads V4 through 6. I discussed the case with Dr. Kaufman director of human resources at [facility] who will assist in transfer over to their facility. Patient is on a heparin drip. Discussed case with director of human resources who feels patient needs to be where CT surgery is available. Sounds like they should be able to make a bed available at [facility] today. [facility] still does not have a bed available after calling for update this afternoon. We will reach out to Jesús who had Called earlier. updated echo shows EF to be 45-50% and mid to apical inferior wall was hypokinetic. previous echo on 03/21 no mention of WMA. Was able discussed the case with director of human resources at [place] Dr. Lee and hospitalist Dr. Youssef who accepted the patient. We will work on transfer. Assessment and Plans: *Endocardial mass: -TTE showed 2.3X1.0cm echogenic structure extending from LVOT toward anterior leaflet -Dr. Calero spoke with cardiology team at [facility] and they accepted the patient, pending bed. They recommend starting the patient on heparin drip according to pulmonary embolism protocol and to get CTA of head which shows old infarcts but no acute. -pt has had no fevers/leukocytosis and BC's have been negative *NSTEMI: no chest pain currently -elevated troponins 0.23>0.48>6.8>4.5 -f/u ekg with ischemic changes -cxr with pulm edema, lasix ordered -repeat echo per cardio > shows EF 45-50% and mid to apical inferior wall hypokinesis *Transaminitis, mild: *Gross hematuria: resolved -DDx: 2/2 anticoagulant therapy Eliquis, side effect of chemoradiation therapy, malignancy -Dr. Hanks performed cystoscopy revealed no masses in the bladder there was some mild erythema consistent with possible radiation cystitis. He pulled her Martin catheter. No more reported gross hematuria overnight. -CT abdomen pelvis showed multiple infarcts in left kidney and spleen *Acute blood loss anemia: 2/2 above, now stable -Serial H/H to monitor blood count and transfuse if it keeps drops <7.0 -Hold Eliquis *h/o uterine cancer: Follow up with outpatient oncologist *UTI, bacterial vs fungal: -Blood culture, no growth to date , Urine culture no growth to date -cbc w/ auto diff in the morning to trend WBC -Rocephin / Diflucan *Thrombocytopenia: cbc w/ auto diff to trend plt count, monitor closely -better today *T2DM: -Hold Metformin/Glipizide, cont SSI *h/o DVT: home Eliquis currently held, on heparin gtt *h/o CVA's per neuroimaging Discharge diagnosis: Endocardial mass non-STEMI Secondary discharge diagnosis: Transaminitis anemia uterine cancer diabetes history of DVT and stroke, UTI Time Spent with Patient Time attestation: Total time spent providing and/or coordinating discharge services: Time spent: Greater than 30 minutes EXAM Constitutional Vitals: Temp Pulse Resp BP Pulse Ox O2 Del Method O2 Flow Rate 97 F 82 21 126/49 96 0 03/25/22 15:40 03/25/22 15:40 03/25/22 15:40 03/25/22 15:40 03/25/22 15:40 03/25/22 15:40 03/25/22 05:03 Discharge Data Data Completed and Pending Labs on day of discharge: Labs from last 24 hours 03/25/22 03/25/22 03/25/22 13:32 10:40 04:45 WBC RBC Hgb Hct MCV MCH MCHC RDW Plt Count MPV Immature Gran % (Auto) Neut % (Auto) Lymph % (Auto) [place] % (Auto) Eos % (Auto) Baso % (Auto) Lymph # (Auto) [place] # (Auto) Eos # (Auto) Baso # (Auto) Immature Gran # Absolute Neutrophils APTT > 200 H* Sodium Potassium Chloride Carbon Dioxide Anion Gap BUN Creatinine GFR Calculation Glucose Uric Acid Calcium Phosphorus Magnesium Total Bilirubin Direct Bilirubin GGT AST ALT Alkaline Phosphatase Lactate Dehydrogenase Troponin T 4.46 H* C-Reactive Protein NT-Pro-B Natriuret Pep 33716.0 H Total Protein Albumin Globulin Albumin/Globulin Ratio Triglycerides 03/25/22 03/25/22 03/25/22 04:45 04:45 04:45 WBC 3.9 L RBC 2.69 L Hgb 7.6 L Hct 24.9 L MCV 92.6 MCH 28.3 MCHC 30.5 L RDW 16.5 H Plt Count 61 L MPV 13.6 H Immature Gran % (Auto) 1.0 H Neut % (Auto) 77.4 Lymph % (Auto) 11.7 L [place] % (Auto) 6.9 Eos % (Auto) 2.5 Baso % (Auto) 0.5 Lymph # (Auto) 0.46 L [place] # (Auto) 0.27 Eos # (Auto) 0.10 Baso # (Auto) 0.02 Immature Gran # 0.04 Absolute Neutrophils 3.04 APTT > 200 H* Sodium Potassium Chloride Carbon Dioxide Anion Gap BUN Creatinine GFR Calculation Glucose Uric Acid Calcium Phosphorus Magnesium Total Bilirubin Direct Bilirubin GGT AST ALT Alkaline Phosphatase Lactate Dehydrogenase Troponin T 6.80 H* C-Reactive Protein NT-Pro-B Natriuret Pep Total Protein Albumin Globulin Albumin/Globulin Ratio Triglycerides 03/25/22 03/25/22 03/24/22 04:45 02:50 19:05 WBC RBC Hgb Hct MCV MCH MCHC RDW Plt Count MPV Immature Gran % (Auto) Neut % (Auto) Lymph % (Auto) [place] % (Auto) Eos % (Auto) Baso % (Auto) Lymph # (Auto) [place] # (Auto) Eos # (Auto) Baso # (Auto) Immature Gran # Absolute Neutrophils APTT > 200 H* 48.3 H Sodium 135 Potassium 4.5 Chloride 102 Carbon Dioxide 23 Anion Gap 10.0 BUN 18 Creatinine 1.0 GFR Calculation 61 Glucose 140 H Uric Acid 5.2 Calcium 8.6 Phosphorus 4.1 Magnesium 1.9 Total Bilirubin 0.2 Direct Bilirubin < 0.2 GGT 19 AST 239 H ALT 87 H Alkaline Phosphatase 69 Lactate Dehydrogenase 928 H Troponin T C-Reactive Protein 4.70 H NT-Pro-B Natriuret Pep Total Protein 5.4 L Albumin 3.1 L Globulin 2.3 Albumin/Globulin Ratio 1.3 Triglycerides 181 H Preliminary micro results at discharge 03/21/22 23:28 Blood Culture - Preliminary Blood 03/21/22 18:56 Blood Culture - Preliminary Blood Discharge Plan Patient/Caregiver Discharge Instructions Prescriptions: No Action Jardiance 25 mg Tablet 25 mg PO QDAY buspirone 5 mg Tablet 10 mg PO BID Label Comments: For anxiety ibuprofen 800 mg Tablet 800 mg PO Q8H PRN (Reason: Pain) fluconazole 150 mg Tablet 150 mg PO Q3D ondansetron HCl [Zofran] 4 mg Tablet 4 mg PO Q6H PRN (Reason: Nausea) prochlorperazine maleate 10 mg Tablet 10 mg PO Q6H PRN (Reason: Nausea) Saline Nasal 0.65 % Aerosol,[place] 1 spray INTRANASAL PRN PRN (Reason: Congestion) fenofibrate 160 mg Tablet 160 mg PO QDAY Trulicity 1.5 mg/0.5 mL Pen Injector 1.5 mg SUBCUT ONCE apixaban 5 mg (74 tabs) Tablets,Dose Pack 5 mg PO BID buspirone 5 mg PO HS Follow Up Plan Follow up with: Enma Garcia PA-C [Primary Care Provider] - [facility] Prognosis: Undetermined Overall status at discharge: patient is not back to baseline Discharge Orders: Discharge Order (Routine); Ordered 03/25/22 Ordered By: Miguel Zavala [facility] VTE Deep Vein Thrombosis/Pulmonary Embolism Present on Admission: Yes
[2022-03-25] MEDS: LORazepam 0.5 MG TABLET PO PRN (18:43)
--- NOTE | 2022-03-26 07:52 | EKG ---
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
--- NOTE | 2022-03-30 14:00 | Operative Note ---
Brief Operative Note Date of procedure: 03/22/22 Pre-op diagnosis: Gross hematuria Post-op diagnosis: same Procedure: Cystoscopy Grafts/Implants: No Anesthesia: local Findings: Mild erythema of the bladder otherwise normal cystoscopy Complications: none Surgeon: Jacob Hanks Estimated blood loss (cc): 0 Specimens Removed/Pathology: none sent Condition: stable Disposition: floor Operative Note Operative Note: After obtaining consent from the patient she was placed in a frog-leg position, Martin catheter was removed, external genitalia and urethra were prepped with Betadine, and lidocaine gel was injected per urethra. A disposable flexible cystoscope was passed into the patient's bladder under direct visualization. Careful systematic inspection of the entire lining of the bladder was performed. There is minimal erythema (most likely from catheter irritation) noted on the posterior bladder wall. Ureteral orifices were normal bilaterally. Scope was retroflexed and the bladder neck was inspected and no abnormalities were noted. Cystoscope was then removed. Patient tolerated the procedure well.
== END 2022-03-25 19:32 | disposition short-term general hospital (02) | DRG 695 ==
LOC: ED 11:50 → ICU 17:30
PROVIDERS: ADMIT Internal Medicine; ATTEND Internal Medicine